=== PATIENT | female | born 1940 | race Caucasian/White ===

== ENCOUNTER → 2016-07-16 | Outpatient (CLI) | payer MEDICARE ==
--- NOTE | 2016-07-20 11:14 | MM ---
Reason for exam: screening (asymptomatic). Last mammogram was performed 1 year and 2 months ago. History: Patient is postmenopausal. Took hormonal contraceptives for 15 years beginning at age 22. Took estrogen for 10 years beginning at age 52. Took progesterone for 10 years beginning at age 52. Physical Findings: A clinical breast exam by your physician is recommended on an annual basis and results should be correlated with mammographic findings. MG 3D Screening Mammo W/Cad Bilateral CC and MLO view(s) were taken. Prior study comparison: May 15, 2015, bilateral MG screening mammo w CAD. May 03, 2014, bilateral MG screening mammo w CAD. May 02, 2013, bilateral digital screening mammo w/CAD. The breast tissue is almost entirely fat. Medial posterior mole on the right breast. No significant changes when compared with prior studies. ASSESSMENT: Negative, BI-RAD 1 RECOMMENDATION: Routine screening mammogram of both breasts in 1 year.
== END | disposition home or self-care (01) ==
LOC: RADMAMWWP 10:03
PROVIDERS: ATTEND Internal Medicine Geriatric Medicine
DX: Z12.31 Encounter for screening mammogram for malignant neoplasm of breast (principal)
CPT/HCPCS: 77063; G0202

== ENCOUNTER → 2017-06-10 | Outpatient (CLI) | payer MEDICARE ==
--- NOTE | 2017-06-11 09:22 | XR ---
EXAMINATION TYPE: XR chest 2V DATE OF EXAM: 06/10/2017 COMPARISON: NONE TECHNIQUE: PA and lateral views submitted. HISTORY: Dysphasia FINDINGS: The lungs are clear and there is no pneumothorax, pleural effusion, or focal pneumonia. Linear kaba ges at the left lung base are more typical of atelectasis than infiltrate. No overt failure. Hypertro phic and degenerative change of the spine. IMPRESSION: 1. Subsegmental linear changes left lung base. Atelectasis favored over infiltrate.
--- NOTE | 2017-06-11 09:30 | XR ---
EXAMINATION TYPE: XR soft tissue neck DATE OF EXAM: 06/10/2017 COMPARISON: NONE HISTORY: Dysphasia TECHNIQUE: 2 view submitted FINDINGS: Osseous structures intact. Lung apices clear. Degenerative change cervical spine. Prevertebral soft tissue structures within normal limits. Epiglottis has a normal appearance. Airway is patent. Facet arthropathy at multiple levels. IMPRESSION: No acute process.
== END | disposition home or self-care (01) ==
LOC: RADXRMAIN 15:56
PROVIDERS: ATTEND Nurse Practitioner Family
DX: R13.10 Dysphagia, unspecified (principal)
CPT/HCPCS: 70360; 71046

== ENCOUNTER → 2017-08-17 | Outpatient (CLI) | payer MEDICARE ==
--- NOTE | 2017-08-17 13:01 | BD ---
EXAMINATION TYPE: MG DEXA axial skeleton. DATE OF EXAM: 08/17/2017 CLINICAL HISTORY:M81.0 Height: 62.5 Weight: 173 FRAX RISK QUESTIONS: Alcohol (3 or more units per day): no Family History (Parent hip fracture): no Glucocorticoids (More than 3mos): yes (Ex: prednisone, prednisolone, methylprednisolone, dexamethasone, and hydrocortisone). History of Fracture in Adulthood: no Secondary Osteoporosis: 1. Type 1 Diabetes: NO 2. Hyperthyroidism: no 3. Menopause before 45: no 4. Malnutrition: no 5. Chronic liver disease: no Rheumatoid Arthritis: no Current Tobacco Use: no RISK FACTORS HISTORY OF: Family History of Osteoporosis: no Active: yes Diet low in dairy products/other sources of calcium: no Postmenopausal woman: yes Take estrogen and/or progesterone medications: not now How long: hormonal contraceptives about 15 years; estrogen/progesterone about 10 years Lost more than 2 inches in height since high school: no Frequent falls: no Poor Health: no Hyperparathyroidism: no Adrenal Insufficiency: no MEDICATIONS: Prednisone or other steroids: yes How Long: over 10 years Thyroid Medications: yes Which medication: Levothyroxine How Long: over 10 years Osteoporosis Medications: no Additional Medications: Symbicort, Omeprazole, Atorvastatin, Ezetimibe, Losartan Potassium, Aspirin, Loratadine or Cetirizine Hydrochlory, Montelukast, Metformin, Restasis, Multivitamin, Vitamin D, Fish oil, Vitamin C, Glucosamine & Chondroitin, Albuterol Sulfate Inhalation (nebulizer 4 times a day) Ve ntolin-Albuterol Sulfate every 4-6 hours only when needed Additional History: half of thyroid removed EXAM MEASUREMENTS: Bone mineral densitometry was performed using the [employer] System. Bone mineral density as measured about the Lumbar spine is: ----- L1-L4(G/cm2): 1.191 T Score Values are as follows: ----- L2: -0.1 ----- L3: -0.1 ----- L4: 0.0 ----- L1-L4: 0.1 Bone mineral density has: Decreased -3.2% since study of: 11/22/2009 Bone mineral density about the R hip (g/cm2): 0.879 Bone mineral density about the L hip (g/cm2): 0.862 T Score values are as follows: -----R Neck: -1.1 -----L Neck: -1.3 -----R Total: -0.5 -----L Total: -0.7 Bone mineral density has: Decreased -8.6% since study of: 11/22/2009 IMPRESSION: Osteopenia (T Score between -2.5 and -1). There is slightly increased risk of fracture and the patient may be considered for treatment. Re-Screen 2-5 years. NOTE: T-SCORE=SD OF THE YOUNG ADULT MEAN.
--- NOTE | 2017-08-18 08:34 | MM ---
Reason for exam: screening (asymptomatic). Last mammogram was performed 1 year and 1 month ago. History: Patient is postmenopausal. Took hormonal contraceptives for 15 years beginning at age 22. Took estrogen for 10 years beginning at age 52. Took progesterone for 10 years beginning at age 52. Physical Findings: A clinical breast exam by your physician is recommended on an annual basis and results should be correlated with mammographic findings. MG Screening Mammo w CAD Bilateral CC and MLO view(s) were taken. Prior study comparison: July 16, 2016, bilateral MG 3d screening mammo w/cad. May 15, 2015, bilateral MG screening mammo w CAD. There are scattered fibroglandular densities. Stable benign calcifications. There is no discrete abnormality. No significant changes when compared with prior studies. ASSESSMENT: Benign, BI-RAD 2 RECOMMENDATION: Routine screening mammogram of both breasts in 1 year.
== END | disposition home or self-care (01) ==
LOC: RADMAMWWP 08:02
PROVIDERS: ATTEND Internal Medicine Geriatric Medicine
DX: Z12.31 Encounter for screening mammogram for malignant neoplasm of breast (principal); M85.80 Other specified disorders of bone density and structure, unspecified site; M81.0 Age-related osteoporosis without current pathological fracture
CPT/HCPCS: 77067; 77080

== ENCOUNTER → 2018-08-31 | Outpatient (CLI) | payer MEDICARE ==
--- NOTE | 2018-09-02 10:07 | MM ---
Reason for exam: screening (asymptomatic). Last mammogram was performed 1 year ago. History: Patient is postmenopausal. Took hormonal contraceptives for 15 years beginning at age 22. Took estrogen for 10 years beginning at age 52. Took progesterone for 10 years beginning at age 52. Physical Findings: A clinical breast exam by your physician is recommended on an annual basis and results should be correlated with mammographic findings. MG Screening Mammo w CAD Bilateral CC and MLO view(s) were taken. Prior study comparison: August 17, 2017, bilateral MG screening mammo w CAD. July 16, 2016, bilateral MG 3d screening mammo w/cad. There are scattered fibroglandular densities. No significant changes when compared with prior studies. ASSESSMENT: Benign, BI-RAD 2 RECOMMENDATION: Routine screening mammogram of both breasts in 1 year.
== END | disposition home or self-care (01) ==
LOC: RADMAMWWP 12:01
PROVIDERS: ATTEND Internal Medicine Geriatric Medicine
DX: Z12.31 Encounter for screening mammogram for malignant neoplasm of breast (principal)
CPT/HCPCS: 77067

== ENCOUNTER → 2020-02-21 | Outpatient (CLI) | payer MEDICARE ==
--- NOTE | 2020-02-22 08:15 | BD ---
EXAMINATION TYPE: Axial Bone Density DATE OF EXAM: 02/21/2020 COMPARISON: NONE CLINICAL HISTORY: Height: 62 Weight: 158.6 FRAX RISK QUESTIONS: Alcohol (3 or more units per day): no Family History (Parent hip fracture): no Glucocorticoids (More than 3mos): no (Ex: prednisone, prednisolone, methylprednisolone, dexamethasone, and hydrocortisone). History of Fracture in Adulthood: no Secondary Osteoporosis: 1. Type 1 Diabetes: no 2. Hyperthyroidism: no 3. Menopause before 45: no 4. Malnutrition: no 5. Chronic liver disease: no Rheumatoid Arthritis: no Current Tobacco Use: no RISK FACTORS HISTORY OF: Family History of Osteoporosis: no Active: yes Diet low in dairy products/other sources of calcium: no Lost more than 2 inches in height since high school: no MEDICATIONS: Symbicort, Omeprazole, Atorvastatin, Ezetimibe, Losartan Potassium, Aspirin, Loratadine or Cetirizine Hydrochlory, Montelukast, Metformin, Restasis, Multivitamin, Vitamin D, Fish oil, Vitam in C, Glucosamine Chondroitin, Albuterol Sulfate Inhalation (nebulizer 4 times a day) Ventolin-Albute rol Sulfate every 4-6 hours only when needed Thyroid Medications: levothyroxine How Lon years Additional History: EXAM MEASUREMENTS: Bone mineral densitometry was performed using the [employer] System. Bone mineral density as measured about the Lumbar spine is: ----- L1-L4(G/cm2): 1.179 T Score Values are as follows: ----- L2: -0.8 ----- L3: -0.2 ----- L4: 0.6 ----- L1-L4: 0.0 Bone mineral density has: decreased -0.1 % since study of: 08.17.2017 Bone mineral density about the R hip (g/cm2): 0.827 Bone mineral density about the L hip (g/cm2): 0.817 T Score values are as follows: -----R Neck: -1.5 -----L Neck: -1.6 -----R Total: -0.9 -----L Total: -0.8 Bone mineral density has: decreased -2.9 % since study of: 08.17.2017 IMPRESSION: No evidence for osteoporosis are osteopenia. NOTE: T-SCORE=SD OF THE YOUNG ADULT MEAN.
--- NOTE | 2020-02-23 10:28 | MM ---
Reason for exam: screening (asymptomatic). Last mammogram was performed 1 year and 6 months ago. History: Patient is postmenopausal. Took hormonal contraceptives for 15 years beginning at age 22. Took estrogen for 10 years beginning at age 52. Took progesterone for 10 years beginning at age 52. Physical Findings: A clinical breast exam by your physician is recommended on an annual basis and results should be correlated with mammographic findings. MG 3D Screening Mammo W/Cad Bilateral CC and MLO view(s) were taken. Prior study comparison: August 31, 2018, bilateral MG screening mammo w CAD. August 17, 2017, bilateral MG screening mammo w CAD. There are scattered fibroglandular densities. Focal asymmetry No significant changes when compared with prior studies. ASSESSMENT: Benign, BI-RAD 2 RECOMMENDATION: Routine screening mammogram of both breasts in 1 year.
== END | disposition home or self-care (01) ==
LOC: RADMAMWWP 14:59
PROVIDERS: ATTEND Internal Medicine Geriatric Medicine
DX: Z12.31 Encounter for screening mammogram for malignant neoplasm of breast (principal); M81.0 Age-related osteoporosis without current pathological fracture
CPT/HCPCS: 77063; 77067; 77080

== ENCOUNTER → 2021-09-04 | Outpatient (CLI) | payer MEDICARE ==
--- NOTE | 2021-09-05 10:20 | MM ---
Reason for exam: screening (asymptomatic). Last mammogram was performed 1 year and 6 months ago. History: Patient is postmenopausal. Took hormonal contraceptives for 15 years beginning at age 22. Took estrogen for 10 years beginning at age 52. Took progesterone for 10 years beginning at age 52. Physical Findings: A clinical breast exam by your physician is recommended on an annual basis and results should be correlated with mammographic findings. MG 3D Screening Mammo W/Cad Bilateral CC and MLO view(s) were taken. Prior study comparison: February 21, 2020, bilateral MG 3d screening mammo w/cad. August 31, 2018, bilateral MG screening mammo w CAD. There are scattered fibroglandular densities. There are benign appearing round, linear calcifications in the left breast. There is no discrete abnormality. ASSESSMENT: Benign, BI-RAD 2 RECOMMENDATION: Routine screening mammogram of both breasts in 1 year.
== END | disposition home or self-care (01) ==
LOC: RADMAMWWP 15:42
PROVIDERS: ATTEND Internal Medicine Geriatric Medicine
DX: Z12.31 Encounter for screening mammogram for malignant neoplasm of breast (principal); Z78.0 Asymptomatic menopausal state
CPT/HCPCS: 77063; 77067

== ENCOUNTER → 2023-05-27 | Outpatient (CLI) | payer MEDICARE ==
--- NOTE | 2023-05-27 23:51 | BD ---
EXAMINATION TYPE: Axial Bone Density DATE OF EXAM: 05/27/2023 CLINICAL HISTORY: 82 years old Female. ICD-10 CODE: M81.0 AGE-RELATED OSTEOPOROSIS W/ Height: 61.5 Weight: 142.1 FRAX RISK QUESTIONS: Alcohol (3 or more units per day): no Family History (Parent hip fracture): no Glucocorticoids (More than 3mos): no History of Fracture in Adulthood: no Secondary Osteoporosis: 1. Type 1 Diabetes: no 2. Hyperthyroidism: no 3. Menopause before 45: no 4. Malnutrition: no 5. Chronic liver disease: no Rheumatoid Arthritis: no Current Tobacco Use: no RISK FACTORS HISTORY OF: Hip Fracture (Right/Left): no Spine Fracture: no History of Wrist Fracture: no Surgery to Spine/Hip(right/left)/Wrist (right/left): no Family History of Osteoporosis: no Active: no Diet low in dairy products/other sources of calcium: yes Postmenopausal woman: yes Take estrogen and/or progesterone medications: no Lost more than 2 inches in height since high school: no Frequent falls: no Poor Health: no Hyperparathyroidism: no Adrenal Insufficiency: no MEDICATIONS: Prednisone or other steroids: no Thyroid Medications: no Osteoporosis Medications: no Additional Medications: Cholesterol Meds, Vit D, Calcium Additional History: EXAM MEASUREMENTS: Bone mineral densitometry was performed using the [employer] System. Bone mineral density as measured about the Lumbar spine is: ----- L1-L4(G/cm2): 1.204 T Score Values are as follows: ----- L1: -0.5 ----- L2: 0.3 ----- L3: 0.2 ----- L4: 0.9 ----- L1-L4: 0.2 Z Score Values are as follows: ----- L1: 1.4 ----- L2: 1.5 ----- L3: 2.1 ----- L4: 2.7 ----- L1-L4: 2.1 Bone mineral density has: increased 2.1 % since study of: 02/21/2020 Bone mineral density about the R hip (g/cm2): 0.781 Bone mineral density about the L hip (g/cm2): 0.799 T Score values are as follows: -----R Neck: -1.8 -----L Neck: -1.6 -----R Total: -1.8 -----L Total: -1.7 Z Score values are as follows: -----R Neck: 0.4 -----L Neck: 0.6 -----R Total: 0.3 -----L Total: 0.4 Bone mineral density has: decreased -12.5 % since study of: 02/21/2020 FRAX%s: The graph provided illustrates a 15.1% chance for a major osteoporotic fx and a 4.3% chance f or the hips probability for fx in 10 years time. IMPRESSION: Osteopenia (T Score between -2.5 and -1). There is slightly increased risk of fracture and the patient may be considered for treatment. Re-Screen 2-5 years. NOTE: T-SCORE=SD OF THE YOUNG ADULT MEAN.
--- NOTE | 2023-05-28 19:14 | MM ---
Reason for Exam: Screening (asymptomatic). Last mammogram was performed 1 year(s) and 9 month(s) ago. Patient History: Menarche at age 15. First Full-Term at age 25. Postmenopausal. Estrogen for 10 years from age 52 until age 62. Progesterone for 10 years from age 52 until age 62. Hormonal Contraceptives for 15 years from age 22 until age 37. Risk Values: Serena 5 year model risk: 1.5%. NCI Lifetime model risk: 2.3%. Prior Study Comparison: 08/31/2018 Bilateral Screening Mammogram, [facility]. 02/21/2020 Bilateral Screening Mammogram, [facility]. 09/04/2021 Bilateral Screening Mammogram, [facility]. Tissue Density: There are scattered fibroglandular densities. Findings: Analyzed By CAD. Pattern appears symmetrical and stable. Multiple benign-appearing stable calcifications are scattered in the anterior left breast. Chronic nodularity is within the right breast. No significant interval changes are evident. No suspicious groups of microcalcifications, spiculated or lobular masses, architectural distortion or other secondary signs of malignancy are mammographically apparent. Overall Assessment: Benign, BI-RAD 2 Management: Screening Mammogram of both breasts in 1 year. A negative mammogram report should not preclude additional follow up of suspicious palpable abnormalities. Patient should continue monthly self breast exam. A clinical breast exam by your physician is recommended on an annual basis and results should be correlated with mammographic findings. Electronically signed and approved by: Romero Be D.O. [employer]iolog[facility]
== END | disposition home or self-care (01) ==
LOC: RADBDWWP 10:32
PROVIDERS: ATTEND Internal Medicine Geriatric Medicine
DX: Z12.31 Encounter for screening mammogram for malignant neoplasm of breast (principal); M81.0 Age-related osteoporosis without current pathological fracture; M85.89 Other specified disorders of bone density and structure, multiple sites; Z78.0 Asymptomatic menopausal state
CPT/HCPCS: 77063; 77067; 77080

== ENCOUNTER 2023-10-21 16:09 | Inpatient (IN) | payer MEDICARE ==
[2023-10-21 19:15] LABS: Partial Thromboplastin Time 22.7 sec (22.0-30.0); Prothrombin Time 10.8 sec (10.0-12.5)
[2023-10-21 19:23] LABS: Basophils % (A) 0 %; Eosinophils % (A) 0 %; HCT 34.6 % (34.0-46.0); HGB 11.4 gm/dL (11.4-16.0); Lymphocytes # (A) 1.1 k/uL (1.0-4.8); Lymphocytes % (A) 8 %; MCH 29.1 pg (25.0-35.0); MCHC 32.9 g/dL (31.0-37.0); MCV 88.2 fL (80.0-100.0); Mean Platelet Volume 7.3; Monocytes # (A) 0.9 k/uL (0-1.0); Monocytes % (A) 7 %; Neutrophils # (A) 11.5 k/uL (1.3-7.7); Neutrophils % (A) 83 %; Platelet Count 198 k/uL (150-450); RBC 3.92 m/uL (3.80-5.40); WBC 13.8 k/uL (3.8-10.6)
[2023-10-21 19:25] LABS: Appearance,Urine Cloudy (Clear); Bilirubin,Urine Negative (Negative); Blood,Urine Small (Negative); Color,Urine Yellow; Glucose,Urine (UA) Negative (Negative); Ketones,Urine 2+ (Negative); Leukocyte Esterase,Urine Large (Negative); Mucus,Urine Moderate /hpf; Nitrite,Urine Negative (Negative); PH, Urine 5.5 (5.0-8.0); Protein,Urine Trace (Negative); RBC,Urine 3 /hpf (0-5); Specific Gravity,Urine 1.022 (1.001-1.035); Squamous Epithelial Cell,Urine 4 /hpf (0-4); Urobilinogen,Urine <2.0 mg/dL (<2.0); WBC,Urine 18 /hpf (0-5)
[2023-10-21 19:30] LABS: ALT 16 U/L (4-34); AST 30 U/L (14-36); African American GFR (CKD) 66 (>60 ml/min/1.73 sqM); Albumin 3.7 g/dL (3.5-5.0); Alkaline Phosphatase 63 U/L (38-126); Anion Gap 5 mmol/L; Blood Urea Nitrogen 24 mg/dL (7-17); Calcium 8.9 mg/dL (8.4-10.2); Carbon Dioxide 23 mmol/L (22-30); Chloride 105 mmol/L (98-107); Glucose 79 mg/dL (74-99); Non-African American GFR(CKD) 57 (>60 ml/min/1.73 sqM); Potassium 3.8 mmol/L (3.5-5.1); Sodium 133 mmol/L (137-145); Total Bilirubin 0.7 mg/dL (0.2-1.3); Total Protein 6.2 g/dL (6.3-8.2)
[2023-10-21 19:32] LABS: Amphetamine Screen,Urine Not Detected (NotDetected); Barbiturate Screen,Urine Not Detected (NotDetected); Benzodiazepines Screen,Urine Not Detected (NotDetected); Cocaine Screen,Urine Not Detected (NotDetected); Methadone Screen, Urine Not Detected (NotDetected); Opiate Screen,Urine Not Detected (NotDetected); Oxycodone Screen, Urine Not Detected (NotDetected); Phencyclidine Screen,Urine Not Detected (NotDetected); Tricyclic Antidepressant,Urine Not Detected (NotDetected); Urn Cannabinoid Scrn Not Detected (NotDetected)
--- NOTE | 2023-10-21 20:04 | ED ---
General Adult HPI - General Chief complaint: Fall Stated complaint: NVD,AMS Time Seen by Provider: 10/21/23 16:15 Source: patient, family Mode of arrival: ambulatory Limitations: no limitations - History of Present Illness Initial comments: 83-year-old female with past medical history of dementia, diabetes who presents emergency department with altered mental status. Daughter is at bedside and provides the history. States that the patient has been confused since yesterday. She did have a doctor's appointment and appeared to be doing well at the visit. The daughter dropped her off at her house. Apparently the patient fell sometime last night as she has bruising to her right elbow. The patient is unsure if she passed out or fell as she does not remember the details of the past day. She does have a skin tear. She does have pain in the back of her head. She does not take any blood thinners. She is also reporting to right-sided rib pain. No shortness of breath. No changes in her bowel or bladder habits. No nausea or vomiting. She does admit that her mother has some memory issues however states this is significantly advanced. no other alleviating, precipitating or modifying factors - Related Data Home Medications Medication Instructions Recorded Confirmed Albuterol Nebulized [Ventolin 2.5 mg INHALATION RT-QID PRN 10/22/23 10/22/23 Nebulized] Albuterol Sulfate [Ventolin HFA] 1 - 2 puff INHALATION RT-Q6H PRN 10/22/23 10/22/23 Ascorbic Acid [Vitamin C] 500 mg PO DAILY 10/22/23 10/22/23 Aspirin 81 mg PO HS 10/22/23 10/22/23 Budesonide-Formot 160-4.5 Mcg 2 puff INHALATION RT-BID 10/22/23 10/22/23 [Symbicort 160-4.5 Mcg Inhaler] Cetirizine HCl [Zyrtec] 10 mg PO DAILY 10/22/23 10/22/23 Cholecalciferol [Vitamin D3 (25 50 mcg PO DAILY 10/22/23 10/22/23 Mcg = 1000 Iu)] Co Q-10 100mg 100 mg PO DAILY 10/22/23 10/22/23 Donepezil HCl [Aricept] 10 mg PO BID 10/22/23 10/22/23 Escitalopram [Lexapro] 5 mg PO DAILY 10/22/23 10/22/23 Ezetimibe [Zetia] 10 mg PO DAILY 10/22/23 10/22/23 Fish Oil/Dha/Epa [Fish Oil 1,200 1 cap PO DAILY 10/22/23 10/22/23 mg Fish Oil] Glucosamine-Msm 1 tab PO DAILY 10/22/23 10/22/23 Levothyroxine Sodium [Synthroid] 50 mcg PO DAILY 10/22/23 10/22/23 Losartan Potassium [Cozaar] 100 mg PO HS 10/22/23 10/22/23 Magnesium 250 mg PO BID 10/22/23 10/22/23 Montelukast [Singulair] 10 mg PO HS 10/22/23 10/22/23 Multivit-Min/FA/Lycopen/Lutein 1 tab PO DAILY 10/22/23 10/22/23 [Centrum Silver Tablet] Omeprazole [PriLOSEC] 20 mg PO W/SUPPER 10/22/23 10/22/23 Rosuvastatin [Crestor] 10 mg PO HS 10/22/23 10/22/23 cycloSPORINE 0.05% OPHTH SOLN 1 drop BOTH EYES BID 10/22/23 10/22/23 [Restasis] Previous Rx's Medication Instructions Recorded Vancomycin Oral Solution 250 mg PO Q6HR #64 dose 10/26/23 [Vancomycin HCl Oral Soln] metroNIDAZOLE [Flagyl] 500 mg PO TID #42 tab 10/26/23 Allergies Allergy/AdvReac Type Severity Reaction Status Date / Time Sulfa (Sulfonamide AdvReac Nausea & Verified 10/22/23 07:46 Antibiotics) Vomiting & Diarrhea Review of Systems ROS Statement: Those systems with pertinent positive or pertinent negative responses have been documented in the HPI. ROS Other: All systems not noted in ROS Statement are negative. Past Medical History Past Medical History: Dementia, Diabetes Mellitus, Hyperlipidemia History of Any Multi-Drug Resistant Organisms: None Reported Past Surgical History: No Surgical Hx Reported Past Psychological History: Anxiety Smoking Status: Never smoker Past Alcohol Use History: None Reported Past Drug Use History: None Reported General Exam Limitations: no limitations General appearance: alert, in no apparent distress Head exam: Present: atraumatic, normocephalic, normal inspection Eye exam: Present: normal appearance, PERRL, EOMI. Absent: scleral icterus, conjunctival injection, periorbital swelling ENT exam: Present: normal exam, mucous membranes moist Neck exam: Present: normal inspection. Absent: tenderness, meningismus, lymphadenopathy Respiratory exam: Present: normal lung sounds bilaterally, chest wall tenderness (Tenderness to palpation of the right anterior chest wall). Absent: re spiratory distress, wheezes, rales, rhonchi, stridor Cardiovascular Exam: Present: regular rate, normal rhythm, normal heart sounds. Absent: systolic murmur, diastolic murmur, rubs, gallop, clicks GI/Abdominal exam: Present: soft, normal bowel sounds. Absent: distended, tenderness, guarding, rebound, rigid Extremities exam: Present: full ROM, tenderness (right elbow with skin tear measuring 3.0 x 1.0 cm), normal capillary refill. Absent: pedal edema, joint swelling, calf tenderness Back exam: Present: normal inspection Neurological exam: Present: alert, oriented X3, CN II-XII intact Psychiatric exam: Present: normal affect, normal mood Skin exam: Present: warm, dry, intact, normal color. Absent: rash Course Vital Signs 10/21/23 10/21/23 10/21/23 16:12 18:58 19:00 Temperature 99.6 F 99.6 F Pulse Rate 87 68 70 Pulse Rate [ Material Handler Loader ] Respiratory 18 20 16 Rate Blood Pressure 150/73 138/60 140/61 Blood Pressure [Right Arm Supine] O2 Sat by Pulse 96 93 L 94 L Oximetry 10/21/23 10/21/23 10/22/23 20:00 21:00 01:00 Temperature Pulse Rate 65 68 75 Pulse Rate [ Material Handler Loader ] Respiratory 16 16 18 Rate Blood Pressure 118/61 120/61 153/51 Blood Pressure [Right Arm Supine] O2 Sat by Pulse 95 99 95 Oximetry 10/22/23 10/22/23 10/22/23 07:00 13:37 16:34 Temperature 98.3 F 98.1 F 98.1 F Pulse Rate 75 Pulse Rate [ 65 77 Material Handler Loader ] Respiratory 16 16 17 Rate Blood Pressure 125/55 Blood Pressure 129/68 121/56 [Right Arm Supine] O2 Sat by Pulse 93 L 94 L 95 Oximetry Medical Decision Making - Medical Decision Making Was pt. sent in by a medical professional or institution (, PA, DIRECTOR BIOINFORMATICS, urgent care, hospital, or senior care...) When possible be specific @ -No Did you speak to anyone other than the patient for history (EMS, parent, family, police, friend...)? What history was obtained from this source @ -I spoke with patient's daughter for history Did you review nursing and triage notes (agree or disagree)? Why? @ -I reviewed and agree with nursing and triage notes Were old charts reviewed (outside hosp., previous admission, EMS record, old EKG, old radiological studies, urgent care reports/EKG's, senior care records)? Report findings @ -No old charts were reviewed Differential Diagnosis (chest pain, altered mental status, abdominal pain women, abdominal pain men, vaginal bleeding, weakness, fever, dyspnea, syncope, he adache, dizziness, GI bleed, back pain, seizure, CVA, palpatations, mental health, musculoskeletal)? @ -Differential Syncope: Valvular disease, hypertrophic cardiomyopathy, pulmonary embolism, tamponade, tachycardia, bradycardia, MS, hypovolemia, hemorrhage, dissection, anemia, intracranial hemorrhage, seizure, hypoglycemia, carbon monoxide poisoning, this is not meant to be an all-inclusive list. EKG interpreted by me (3pts min.). @ -Yes and demonstrates sinus rhythm with a rate of 71. ND interval 131. QRS 98. QTc of 432. No acute ST segment elevations or depressions X-rays interpreted by me (1pt min.). @ -Yes and demonstrates no acute rib fractures CT interpreted by me (1pt min.). @ -Yes and demonstrates no acute intracranial injury U/S interpreted by me (1pt. min.). @ -None done What testing was considered but not performed or refused? (CT, X-rays, U/S, labs)? Why? @ -None What meds were considered but not given or refused? Why? @ -None Did you discuss the management of the patient with other professionals (professionals i.e. Dr., PA, DIRECTOR BIOINFORMATICS, lab, RT, psych nurse, social services analyst, layer out, teacher, navigation officer, outpatient case manager)? Give summary @ -I spoke with Rosa for admission Was smoking cessation discussed for >3mins.? @ -No Was critical care preformed (if so, how long)? @ -No Were there social determinants of health that impacted care today? How? (Homelessness, low income, unemployed, alcoholism, drug addiction, transportation, low edu. Level, literacy, decrease access to med. care, fpc, rehab)? @ -No Was there de-escalation of care discussed even if they declined (Discuss DNR or withdrawal of care, Hospice)? DNR status @ -No What co-morbidities impacted this encounter? (DM, HTN, Smoking, COPD, CAD, Cancer, CVA, ARF, Chemo, Hep., AIDS, mental health diagnosis, sleep apnea, morbid obesity)? @ -Dementia Was patient admitted / discharged? Hospital course, mention meds given and route, prescriptions, significant lab abnormalities, going to OR and other pertinent info. @ -Upon arrival patient seen and evaluated in hallway 26. Thorough history and physical exam was performed. Patient placed on continuous pulse ox and cardiac monitoring. Twelve-lead EKG is obtained. Laboratory studies are conducted. CT was performed of the patient's brain as she possibly hit her head. X-ray is performed of the patient's chest wall as she was reporting right-sided rib pain. Results were discussed with the patient. Did recommend admission as daughter is reporting confusion. Patient will be covered with antibiotics for her abnormal UA. Patient was agreeable to this plan and is awaiting a bed on the floor in stable condition Undiagnosed new problem with uncertain prognosis? @ -No Drug Therapy requiring intensive monitoring for toxicity (Heparin, Nitro, Insulin, Cardizem)? @ -No Were any procedures done? @ -No Diagnosis/symptom? @ -Acute encephalopathy, acute fall, right-sided chest wall pain, blunt head injury, acute UTI Acute, or Chronic, or Acute on Chronic? @ -Acute Uncomplicated (without systemic symptoms) or Complicated (systemic symptoms)? @ -Complicated Side effects of treatment? @ -No Exacerbation, Progression, or Severe Exacerbation? @ -No Poses a threat to life or bodily function? How? (Chest pain, USA, MS, pneumonia, PE, COPD, DKA, ARF, appy, cholecystitis, CVA, Diverticulitis, Homicidal, Suicidal, threat to staff... and all critical care pts) @ -No - Lab Data Result diagrams: 10/25/23 04:16 10/25/23 04:16 Lab Results 10/21/23 10/21/23 10/21/23 Range/Units 18:55 18:55 18:55 WBC 13.8 H (3.8-10.6) k/uL RBC 3.92 (3.80-5.40) m/uL Hgb 11.4 (11.4-16.0) gm/dL Hct 34.6 (34.0-46.0) % MCV 88.2 (80.0-100.0) fL MCH 29.1 (25.0-35.0) pg MCHC 32.9 (31.0-37.0) g/dL RDW 15.0 (11.5-15.5) % Plt Count 198 (150-450) k/uL MPV 7.3 Neutrophils % 83 % Lymphocytes % 8 % Monocytes % 7 % Eosinophils % 0 % Basophils % 0 % Neutrophils # 11.5 H (1.3-7.7) k/uL Lymphocytes # 1.1 (1.0-4.8) k/uL Monocytes # 0.9 (0-1.0) k/uL Eosinophils # 0.0 (0-0.7) k/uL Basophils # 0.0 (0-0.2) k/uL PT 10.8 (10.0-12.5) sec INR 1.0 (<1.2) APTT 22.7 (22.0-30.0) sec Sodium 133 L (137-145) mmol/L Potassium 3.8 (3.5-5.1) mmol/L Chloride 105 (98-107) mmol/L Carbon Dioxide 23 (22-30) mmol/L Anion Gap 5 mmol/L BUN 24 H (7-17) mg/dL Creatinine 0.94 (0.52-1.04) mg/dL Est GFR (CKD-EPI)AfAm 66 (>60 ml/min/1.73 sqM) Est GFR (CKD-EPI)NonAf 57 (>60 ml/min/1.73 sqM) Glucose 79 (74-99) mg/dL Calcium 8.9 (8.4-10.2) mg/dL Total Bilirubin 0.7 (0.2-1.3) mg/dL AST 30 (14-36) U/L ALT 16 (4-34) U/L Alkaline Phosphatase 63 (38-126) U/L Troponin I (0.000-0.034) ng/mL Total Protein 6.2 L (6.3-8.2) g/dL Albumin 3.7 (3.5-5.0) g/dL Urine Color Urine Appearance (Clear) Urine pH (5.0-8.0) Ur Specific Roscoe (1.001-1.035) Urine Protein (Negative) Urine Glucose (UA) (Negative) Urine Ketones (Negative) Urine Blood (Negative) Urine Nitrite (Negative) Urine Bilirubin (Negative) Urine Urobilinogen (<2.0) mg/dL Ur Leukocyte Esterase (Negative) Urine RBC (0-5) /hpf Urine WBC (0-5) /hpf Ur Squamous Epith Cells (0-4) /hpf Urine Mucus (None) /hpf Urine Opiates Screen (NotDetected) Ur Oxycodone Screen (NotDetected) Urine Methadone Screen (NotDetected) Ur Barbiturates Screen (NotDetected) U Tricyclic Antidepress (NotDetected) Ur Phencyclidine Scrn (NotDetected) Ur Amphetamines Screen (NotDetected) U Methamphetamines Scrn (NotDetected) U Benzodiazepines Scrn (NotDetected) Urine Cocaine Screen (NotDetected) U Marijuana (THC) Screen (NotDetected) Influenza Type A (PCR) (Not Detectd) Influenza Type B (PCR) (Not Detectd) RSV (PCR) (Not Detectd) SARS-CoV-2 (PCR) (Not Detectd) 10/21/23 10/21/23 10/21/23 Range/Units 18:55 18:55 19:08 WBC (3.8-10.6) k/uL RBC (3.80-5.40) m/uL Hgb (11.4-16.0) gm/dL Hct (34.0-46.0) % MCV (80.0-100.0) fL MCH (25.0-35.0) pg MCHC (31.0-37.0) g/dL RDW (11.5-15.5) % Plt Count (150-450) k/uL MPV Neutrophils % % Lymphocytes % % Monocytes % % Eosinophils % % Basophils % % Neutrophils # (1.3-7.7) k/uL Lymphocytes # (1.0-4.8) k/uL Monocytes # (0-1.0) k/uL Eosinophils # (0-0.7) k/uL Basophils # (0-0.2) k/uL PT (10.0-12.5) sec INR (<1.2) APTT (22.0-30.0) sec Sodium (137-145) mmol/L Potassium (3.5-5.1) mmol/L Chloride (98-107) mmol/L Carbon Dioxide (22-30) mmol/L Anion Gap mmol/L BUN (7-17) mg/dL Creatinine (0.52-1.04) mg/dL Est GFR (CKD-EPI)AfAm (>60 ml/min/1.73 sqM) Est GFR (CKD-EPI)NonAf (>60 ml/min/1.73 sqM) Glucose (74-99) mg/dL Calcium (8.4-10.2) mg/dL Total Bilirubin (0.2-1.3) mg/dL AST (14-36) U/L ALT (4-34) U/L Alkaline Phosphatase (38-126) U/L Troponin I <0.012 (0.000-0.034) ng/mL Total Protein (6.3-8.2) g/dL Albumin (3.5-5.0) g/dL Urine Color Urine Appearance (Clear) Urine pH (5.0-8.0) Ur Specific Roscoe (1.001-1.035) Urine Protein (Negative) Urine Glucose (UA) (Negative) Urine Ketones (Negative) Urine Blood (Negative) Urine Nitrite (Negative) Urine Bilirubin (Negative) Urine Urobilinogen (<2.0) mg/dL Ur Leukocyte Esterase (Negative) Urine RBC (0-5) /hpf Urine WBC (0-5) /hpf Ur Squamous Epith Cells (0-4) /hpf Urine Mucus (None) /hpf Urine Opiates Screen Not Detected (NotDetected) Ur Oxycodone Screen Not Detected (NotDetected) Urine Methadone Screen Not Detected (NotDetected) Ur Barbiturates Screen Not Detected (NotDetected) U Tricyclic Antidepress Not Detected (NotDetected) Ur Phencyclidine Scrn Not Detected (NotDetected) Ur Amphetamines Screen Not Detected (NotDetected) U Methamphetamines Scrn Not Detected (NotDetected) U Benzodiazepines Scrn Not Detected (NotDetected) Urine Cocaine Screen Not Detected (NotDetected) U Marijuana (THC) Screen Not Detected (NotDetected) Influenza Type A (PCR) Not Detected (Not Detectd) Influenza Type B (PCR) Not Detected (Not Detectd) RSV (PCR) Not Detected (Not Detectd) SARS-CoV-2 (PCR) Not Detected (Not Detectd) 10/21/23 10/22/23 10/22/23 Range/Units 19:08 07:24 07:24 WBC 11.2 H (3.8-10.6) k/uL RBC 3.51 L (3.80-5.40) m/uL Hgb 10.7 L (11.4-16.0) gm/dL Hct 31.5 L (34.0-46.0) % MCV 89.6 (80.0-100.0) fL MCH 30.4 (25.0-35.0) pg MCHC 33.9 (31.0-37.0) g/dL RDW 14.9 (11.5-15.5) % Plt Count 186 (150-450) k/uL MPV 7.5 Neutrophils % 77 % Lymphocytes % 13 % Monocytes % 7 % Eosinophils % 1 % Basophils % 0 % Neutrophils # 8.6 H (1.3-7.7) k/uL Lymphocytes # 1.4 (1.0-4.8) k/uL Monocytes # 0.8 (0-1.0) k/uL Eosinophils # 0.1 (0-0.7) k/uL Basophils # 0.0 (0-0.2) k/uL PT (10.0-12.5) sec INR (<1.2) APTT (22.0-30.0) sec Sodium 136 L (137-145) mmol/L Potassium 3.6 (3.5-5.1) mmol/L Chloride 108 H (98-107) mmol/L Carbon Dioxide 23 (22-30) mmol/L Anion Gap 5 mmol/L BUN 19 H (7-17) mg/dL Creatinine 0.91 (0.52-1.04) mg/dL Est GFR (CKD-EPI)AfAm 68 (>60 ml/min/1.73 sqM) Est GFR (CKD-EPI)NonAf 59 (>60 ml/min/1.73 sqM) Glucose 64 L (74-99) mg/dL Calcium 8.8 (8.4-10.2) mg/dL Total Bilirubin (0.2-1.3) mg/dL AST (14-36) U/L ALT (4-34) U/L Alkaline Phosphatase (38-126) U/L Troponin I (0.000-0.034) ng/mL Total Protein (6.3-8.2) g/dL Albumin (3.5-5.0) g/dL Urine Color Yellow Urine Appearance Cloudy H (Clear) Urine pH 5.5 (5.0-8.0) Ur Specific Roscoe 1.022 (1.001-1.035) Urine Protein Trace H (Negative) Urine Glucose (UA) Negative (Negative) Urine Ketones 2+ H (Negative) Urine Blood Small H (Negative) Urine Nitrite Negative (Negative) Urine Bilirubin Negative (Negative) Urine Urobilinogen <2.0 (<2.0) mg/dL Ur Leukocyte Esterase Large H (Negative) Urine RBC 3 (0-5) /hpf Urine WBC 18 H (0-5) /hpf Ur Squamous Epith Cells 4 (0-4) /hpf Urine Mucus Moderate H (None) /hpf Urine Opiates Screen (NotDetected) Ur Oxycodone Screen (NotDetected) Urine Methadone Screen (NotDetected) Ur Barbiturates Screen (NotDetected) U Tricyclic Antidepress (NotDetected) Ur Phencyclidine Scrn (NotDetected) Ur Amphetamines Screen (NotDetected) U Methamphetamines Scrn (NotDetected) U Benzodiazepines Scrn (NotDetected) Urine Cocaine Screen (NotDetected) U Marijuana (THC) Screen (NotDetected) Influenza Type A (PCR) (Not Detectd) Influenza Type B (PCR) (Not Detectd) RSV (PCR) (Not Detectd) SARS-CoV-2 (PCR) (Not Detectd) Disposition Clinical Impression: Fall, Acute encephalopathy, UTI (urinary tract infection), Skin tear of elbow without complication Disposition: ADMITTED IP TO THIS HOSP Condition: Stable Is patient prescribed a controlled substance at d/c from ED?: No Time of Disposition: 21:18 Decision to Admit Reason: Admit from EC Decision Date: 10/21/23 Decision Time: 21:18
--- NOTE | 2023-10-21 20:18 | CT ---
EXAMINATION TYPE: CT brain cspine wo con DATE OF EXAM: 10/21/2023 HISTORY: Fall CT DLP: 1369.8 mGycm. Automated Exposure Control for Dose Reduction was Utilized. TECHNIQUE: CT scan of the head and cervical spine are performed without contrast. COMPARISON: 12/13/2022 FINDINGS: There is no skull fracture or intracranial hemorrhage. No mass or mass effect. No definite new attenu ation defect. Extra-axial compartment is unremarkable. Orbits are intact. Paranasal sinuses, middle e ar cavities, and and mastoid sinus air are clear. There is no cervical spine fracture or malalignment. IMPRESSION: No acute process.
--- NOTE | 2023-10-21 20:21 | XR ---
PROCEDURE: XR ribs RT w pa chest xray - 3V DATE AND TIME: 10/21/2023 7:29 PM CLINICAL INDICATION: PHH; fall, right rib pain TECHNIQUE: Department protocol COMPARISON: 12/13/2022 FINDINGS / IMPRESSION: 3 views were obtained. No displaced right rib fracture, pneumothorax, or pleural effusion. No acute incidental findings.
[2023-10-21] MEDS ORDERED: NALOXONE 0.4 MG/ML 1 ML VIAL IV PRN (21:18)
[2023-10-21] MEDS ORDERED: ACETAMINOPHEN TAB 325 MG TAB PO PRN (21:18)
[2023-10-21] MEDS: SODIUM CHLORIDE 0.9% 1,000 ML IV SCH (23:20)
[2023-10-21] MEDS: cefTRIAXone IN SWFI 1,000 MG/10 ML SYRINGE IVP STA (23:21)
[2023-10-21] MEDS: BACITRACIN OINT 1 EACH PACKET TOPICAL ONE (23:21)
[2023-10-22 07:48] LABS: Basophils % (A) 0 %; Eosinophils # (A) 0.1 k/uL (0-0.7); Eosinophils % (A) 1 %; HCT 31.5 % (34.0-46.0); HGB 10.7 gm/dL (11.4-16.0); Lymphocytes # (A) 1.4 k/uL (1.0-4.8); Lymphocytes % (A) 13 %; MCH 30.4 pg (25.0-35.0); MCHC 33.9 g/dL (31.0-37.0); MCV 89.6 fL (80.0-100.0); Mean Platelet Volume 7.5; Monocytes # (A) 0.8 k/uL (0-1.0); Monocytes % (A) 7 %; Neutrophils # (A) 8.6 k/uL (1.3-7.7); Neutrophils % (A) 77 %; Platelet Count 186 k/uL (150-450); RBC 3.51 m/uL (3.80-5.40); RDW 14.9 % (11.5-15.5); WBC 11.2 k/uL (3.8-10.6)
[2023-10-22 08:05] LABS: African American GFR (CKD) 68 (>60 ml/min/1.73 sqM); Anion Gap 5 mmol/L; Blood Urea Nitrogen 19 mg/dL (7-17); Calcium 8.8 mg/dL (8.4-10.2); Carbon Dioxide 23 mmol/L (22-30); Chloride 108 mmol/L (98-107); Glucose 64 mg/dL (74-99); Non-African American GFR(CKD) 59 (>60 ml/min/1.73 sqM); Potassium 3.6 mmol/L (3.5-5.1); Sodium 136 mmol/L (137-145)
[2023-10-22] MEDS ORDERED: ALBUTEROL NEBULIZED 2.5 MG/3 ML INHALATION PRN (12:05)
[2023-10-22] MEDS ORDERED: ALBUTEROL HFA INHALER INHALATION PRN (12:05)
--- NOTE | 2023-10-22 12:32 | HP ---
HISTORY AND PHYSICAL CHIEF COMPLAINT: Fall, nausea and vomiting. HISTORY OF PRESENT ILLNESS: This is an 83-year-old woman with a past medical history of multiple medical problems including dementia, diabetes mellitus type 2, was not feeling well. The patient is mildly confused. Subsequently, the daughter dropped her off that house and the patient fell last night and bruised the right elbow and the patient is unable to recollect how long the patient has been out and the patient was taken to [facility], was admitted for further evaluation and treatment. The patient had features of UTI. There is no history of any fever, rigors, or chills. The patient is keen on going home. The patient also had elevated white count. PAST MEDICAL HISTORY: Reviewed include diabetes and dementia. Rest of the history and rest of the chart is also reviewed. HOME MEDICATIONS: Again reviewed include Prilosec. Dose and rest of medications reviewed. ALLERGIES: Sulfa. FAMILY HISTORY: No history of heart disease or strokes in the family. SOCIAL HISTORY: No history of smoking or alcohol. REVIEW OF SYSTEMS: Fourteen-point review is negative except as mentioned earlier. PHYSICAL EXAMINATION: VITAL SIGNS: Pulse is 75, blood pressure 153/81, respirations 18. HEENT: Conjunctivae normal. Oral mucosa dry. NECK: No jugular venous distention. CARDIOVASCULAR: S1, S2. RESPIRATIONS: Breath sounds diminished at the bases. ABDOMEN: Soft, nontender. LEGS: No edema. NERVOUS SYSTEM: Diffusely weak. SKIN: No ulcer, rash, bleeding. JOINTS: No active deforming arthropathy. LABORATORY DATA: WBC 13.8. ASSESSMENT: 1. Fall and possible dehydration, rule out orthostatic hypotension. 2. Acute urinary tract infection, rule out sepsis. 3. Hyponatremia, mild. 4. Diabetes mellitus, type 2. 5. Dementia. 6. Hyperlipidemia. RECOMMENDATIONS AND DISCUSSION: This is an 83-year-old woman, who presented with multiple complex medical issues, we will monitor the patient closely. Continue the current medications, continue symptomatic treatment. I recommend broad-spectrum IV antibiotics. Urine culture, blood culture, orthostatic vitals. PT, OT evaluation. Neurology, Cardiology consultations. Complete neurovascular workup. Prognosis guarded because of multiple complex medical issues. Further recommendations to follow. See orders for further details. MMODL / IJN: [id number] /
[2023-10-22] MEDS: cycloSPORINE 0.05% OPHTH 0.4 ML DROPERETTE BOTH EYES SCH (12:50)
[2023-10-22] MEDS: LEVOTHYROXINE 50 MCG TAB PO SCH (12:50)
[2023-10-22] MEDS: HEPARIN SODIUM,PORCINE 5,000 UNIT/ML 1 ML VIAL SQ SCH (12:50)
[2023-10-22] MEDS: PANTOPRAZOLE 40 MG/10 ML VIAL IVP SCH (12:50)
--- NOTE | 2023-10-22 13:18 | US ---
EXAMINATION TYPE: US carotid duplex BILAT DATE OF EXAM: 10/22/2023 COMPARISON: NONE CLINICAL INDICATION: Female, 83 years old with history of tia?; Fall with LOC; Patient denies any sig ns, symptoms, or relevant history TECHNIQUE: Carotid duplex ultrasound examination. Indirect Doppler criteria was utilized. FINDINGS: EXAM MEASUREMENTS: RIGHT: Peak Systolic Velocity (PSV) cm/sec ----- Right CCA: 73 ----- Right ICA: 93 ----- Right ECA: 107 ICA/CCA ratio: 1.3 RIGHT: End Diastole cm/sec ----- Right CCA: 15 ----- Right ICA: 23 ----- Right ECA: 10 LEFT: Peak Systolic Velocity (PSV) cm/sec ----- Left CCA: 98 ----- Left ICA: 116 ----- Left ECA: 95 ICA/CCA ratio: 1.2 LEFT: End Diastole cm/sec ----- Left CCA: 15 ----- Left ICA: 27 ----- Left ECA: 12 VERTEBRALS (direction of flow): Right Vertebral: Antegrade Left Vertebral: Antegrade Rhythm: Normal HEALTH CARE AIDE NOTES: No calcifications, plaque, intimal thickening, or elevated velocities seen. IMPRESSION: No significant hemodynamic stenosis. Criteria for Assigning % of Stenosis / Diameter reduction (Estimation based on the indirect measurements of the internal carotid artery velocities (ICA PSV). 1. Normal (no stenosis)=ICA PSV < 125 cm/s: ratio < 2.0: ICA EDV<40 cm/s. 2. Less than 50% stenosis=ICA PSV < 125 cm/s: ratio < 2.0: ICA EDV<40 cm/s. 3. 50 to 69% stenosis=ICA PSV of 125 to 230 cm/s: ration 2.0 ? 4.0: ICA EDV 40-100 cm/s. 4. Greater than 70% stenosis to near occlusion= ICA PSV > 230 cm/s: ratio > 4.0: ICA EDV > 100 cm/s. 5. Near occlusion= ICA PSV velocities may be low or undetectable: variable ratio and ICA EDV. 6. Total occlusion=unable to detect flow.
[2023-10-22 17:23] LABS: Glucose,Whole Blood 121 mg/dL (70-110)
[2023-10-22] MEDS ORDERED: PANTOPRAZOLE 40 MG TABLET PO SCH (17:30)
[2023-10-22] MEDS: SYMBICORT 160-4.5 MCG INHALER INHALATION SCH (19:43)
[2023-10-22] MEDS: LOSARTAN 50 MG TAB PO SCH (20:18)
[2023-10-22] MEDS: ATORVASTATIN 20 MG TAB PO SCH (20:19)
[2023-10-22] MEDS: DONEPEZIL 10 MG TAB PO SCH (20:19)
[2023-10-22] MEDS: ASPIRIN 81 MG PO SCH (20:19)
[2023-10-22] MEDS: MONTELUKAST 10 MG TAB PO SCH (20:19)
[2023-10-23] MEDS ORDERED: NON FORMULARY DRUG (Co Q-10 100mg 100 MG) PO SCH (09:00)
[2023-10-23] MEDS: ASCORBIC ACID 500 MG TAB PO SCH (09:09)
[2023-10-23] MEDS: CHOLECALCIFEROL 25 MCG (1000 IU) TABLET PO SCH (09:09)
[2023-10-23] MEDS: EZETIMIBE 10 MG TAB PO SCH (09:10)
[2023-10-23] MEDS: ESCITALOPRAM 5 MG TAB PO SCH (09:10)
[2023-10-23] MEDS: MAGNESIUM OXIDE 400 MG TAB PO SCH (09:11)
[2023-10-23] MEDS: MULTIVITAMINS, THERA 1 EACH TAB PO SCH (09:11)
[2023-10-23 09:39] LABS: Blood Urea Nitrogen 21.5 mg/dL (9.0-27.0); Calcium 8.7 mg/dL (8.7-10.3); Carbon Dioxide 23.2 mmol/L (21.6-31.8); Chloride 108 mmol/L (96-109); Glucose 105 mg/dL (70-110); Potassium 3.6 mmol/L (3.5-5.5); Sodium 140 mmol/L (135-145)
[2023-10-23 09:46] LABS: Basophils # (A) 0.02 X 10*3/uL (0.00-0.10); Basophils % (A) 0.2 %; Eosinophils # (A) 0.24 X 10*3/uL (0.04-0.35); Eosinophils % (A) 2.1 %; HCT 32.7 % (37.2-46.3); HGB 10.3 g/dL (12.0-15.0); Lymphocytes # (A) 1.97 X 10*3/uL (0.90-5.00); Lymphocytes % (A) 17.5 %; MCH 28.6 pg (27.0-32.0); MCHC 31.5 g/dL (32.0-37.0); MCV 90.8 FL (80.0-97.0); Mean Platelet Volume 9.4 FL (9.5-12.2); Monocytes # (A) 1.41 X 10*3/uL (0.20-1.00); Monocytes % (A) 12.6 %; NRBC Per 100 WBC 0 X 10*3/uL (0.00-0.01); Neutrophils # (A) 7.55 X 10*3/uL (1.80-7.70); Neutrophils % (A) 67.2 %; Platelet Count 202 X 10*3/uL (140-440); RDW 14.9 % (11.5-14.5); WBC 11.23 X 10*3/uL (4.50-10.00)
--- NOTE | 2023-10-23 12:47 | P.CRDCN ---
History of Present Illness Consult date: 10/23/23 Consult reason: sycope History of present illness: This is Tan Schofield NP, I'm dictating on behalf of Dr. Santiago's H&P and A&P The patient was interviewed and examined. HPI: Patient is a pleasant 83-year-old female with a past medical history that includes dementia, diabetes, and hyperlipidemia who presents to the hospital with a fall at home with acute encephalopathy. Patient and daughter are in the room during my interview. The daughter reports that the patient fell at home, and states this was an unsupervised fall so they are unsure if this was due to the patient tripping and falling, being weak, or actually having a syncopal e pisode. Family reports the patient has had multiple falls over the last couple of months. Patient reports that she was not feeling well the night prior, and had fallen at that time, however this was witnessed and somewhat assisted. Patient has injury to her elbow on the right secondary to the unsupervised fall. Daughter reports the patient had been confused as well yesterday. Patient reports that she does not remember falling yesterday evening at all and is unable to provide any details into the mechanism of the fall. This morning the patient reports that she is feeling somewhat better. She is denying chest pain, shortness of breath, heart palpitations, dizziness, and syncope at this time. ROS: [No fever, chills, or rigors] [no cough, phlegm, or expectoration] [no nausea, vomiting, or diarrhea] [no hematuria, dysuria] [no musculoskelatal complaints] [no strokes or seizures] [no skin lesions] EXAMINATION: GENERAL: Well-appearing, well-nourished and in no acute distress. NECK: Supple without JVD or thyromegaly. LUNGS: Breath sounds clear to auscultation bilaterally. Respiration equal and unlabored. No wheezes, rales or rhonchi. HEART: Regular rate and rhythm without murmurs, rubs or gallops. S1 and S2 heard. EXTREMITIES: Normal range of motion, no edema. No clubbing or cyanosis. Peripheral pulses intact and strong. REVIEW OF LABS, ECG & MEDICAL DATA: LABS: White count 11.2, hemoglobin 10.3, platelets 202, sodium 140, potassium 3.6, BUN 21.5, creatinine 1.0, TSH 2.63 EKG: Normal sinus rhythm IMAGING: CT of the brain and cervical spine without contrast dated 10/21/2023 demonstrates no acute process. X-ray of the chest and ribs dated 10/21/2023 demonstrates no displaced right rib fracture, pneumothorax, or pleural effusion, no acute incidental findings. Carotid Doppler bilaterally dated 10/22/2023 demonstrates no significant hemodynamic stenosis. VITALS: Temp 98.6, pulse 62, respirations 16, blood pressure 132/74, O2 saturation 93% on room air IMPRESSION: 1. Possible syncopal episode 2. Urinary tract infection 3. Fall of unknown etiology PLAN: Echocardiogram. Check TSH. Continue telemetry monitoring. Further recommendations based on patient's clinical course. Thank you for the consult and allowing us to participate in the care of this patient. Past Medical History Past Medical History: Dementia, Hyperlipidemia History of Any Multi-Drug Resistant Organisms: None Reported Past Surgical History: No Surgical Hx Reported Past Psychological History: Anxiety Smoking Status: Never smoker Past Alcohol Use History: None Reported Past Drug Use History: None Reported Medications and Allergies Home Medications Medication Instructions Recorded Confirmed Type Albuterol Nebulized [Ventolin 2.5 mg INHALATION RT-QID PRN 10/22/23 10/22/23 History Nebulized] Albuterol Sulfate [Ventolin HFA] 1 - 2 puff INHALATION RT-Q6H PRN 10/22/23 10/22/23 History Ascorbic Acid [Vitamin C] 500 mg PO DAILY 10/22/23 10/22/23 History Aspirin 81 mg PO HS 10/22/23 10/22/23 History Budesonide-Formot 160-4.5 Mcg 2 puff INHALATION RT-BID 10/22/23 10/22/23 History [Symbicort 160-4.5 Mcg Inhaler] Cetirizine HCl [Zyrtec] 10 mg PO DAILY 10/22/23 10/22/23 History Cholecalciferol [Vitamin D3 (25 50 mcg PO DAILY 10/22/23 10/22/23 History Mcg = 1000 Iu)] Co Q-10 100mg 100 mg PO DAILY 10/22/23 10/22/23 History Donepezil HCl [Aricept] 10 mg PO BID 10/22/23 10/22/23 History Escitalopram [Lexapro] 5 mg PO DAILY 10/22/23 10/22/23 History Ezetimibe [Zetia] 10 mg PO DAILY 10/22/23 10/22/23 History Fish Oil/Dha/Epa [Fish Oil 1,200 1 cap PO DAILY 10/22/23 10/22/23 History mg Fish Oil] Glucosamine-Msm 1 tab PO DAILY 10/22/23 10/22/23 History Levothyroxine Sodium [Synthroid] 50 mcg PO DAILY 10/22/23 10/22/23 History Losartan Potassium [Cozaar] 100 mg PO HS 10/22/23 10/22/23 History Magnesium 250 mg PO BID 10/22/23 10/22/23 History Montelukast [Singulair] 10 mg PO HS 10/22/23 10/22/23 History Multivit-Min/FA/Lycopen/Lutein 1 tab PO DAILY 10/22/23 10/22/23 History [Centrum Silver Tablet] Omeprazole [PriLOSEC] 20 mg PO W/SUPPER 10/22/23 10/22/23 History Rosuvastatin [Crestor] 10 mg PO HS 10/22/23 10/22/23 History cycloSPORINE 0.05% OPHTH SOLN 1 drop BOTH EYES BID 10/22/23 10/22/23 History [Restasis] Allergies Allergy/AdvReac Type Severity Reaction Status Date / Time Sulfa (Sulfonamide AdvReac Nausea & Verified 10/22/23 07:46 Antibiotics) Vomiting & Diarrhea Physical Exam Vitals: Vital Signs Temp Pulse Pulse Pulse Pulse Pulse Resp 10/23/23 07:00 98.6 F 62 16 10/23/23 02:45 71 80 91 65 16 10/23/23 01:27 99.9 F H 69 18 10/22/23 20:54 71 80 91 65 16 10/22/23 20:22 99.3 F 10/22/23 19:10 101.0 F H 71 16 10/22/23 17:20 98.2 F 80 91 65 10/22/23 16:34 98.1 F 75 17 10/22/23 13:37 98.1 F 77 16 BP BP BP BP BP BP Pulse Ox 10/23/23 07:00 132/74 93 L 10/23/23 02:45 10/23/23 01:27 137/66 94 L 10/22/23 20:54 10/22/23 20:22 10/22/23 19:10 149/66 99 10/22/23 17:20 147/67 128/67 143/66 96 10/22/23 16:34 125/55 95 10/22/23 13:37 121/56 94 L Intake and Output 10/22/23 10/23/23 10/23/23 22:59 06:59 14:59 Intake Total 118 Balance 118 Intake: Oral 118 Other: # Voids 2 2 Weight 64.41 kg Results 10/23/23 04:54 10/23/23 04:54 Comprehensive Metabolic Panel 10/22/23 Range/Units 07:24 Sodium 136 L (137-145) mmol/L Potassium 3.6 (3.5-5.1) mmol/L Chloride 108 H (98-107) mmol/L Carbon Dioxide 23 (22-30) mmol/L BUN 19 H (7-17) mg/dL Creatinine 0.91 (0.52-1.04) mg/dL Glucose 64 L (74-99) mg/dL Calcium 8.8 (8.4-10.2) mg/dL Current Medications Generic Name Dose Route Start Last Admin Trade Name Freq PRN Reason Stop Dose Admin Acetaminophen 650 mg 10/21/23 21:18 Acetaminophen Tab 325 Mg Tab PO Q6HR PRN Mild Pain or Fever > 100.5 Albuterol Sulfate 2 puff 10/22/23 12:05 Albuterol Hfa Inhaler INHALATION RT-Q6H PRN Shortness Of Breath Albuterol Sulfate 2.5 mg 10/22/23 12:05 Albuterol Nebulized 2.5 Mg/3 Ml INHALATION RT-QID PRN Shortness Of Breath Ascorbic Acid 500 mg 10/23/23 09:00 Ascorbic Acid 500 Mg Tab PO DAILY GEOVANNI Aspirin 81 mg 10/22/23 21:00 10/22/23 20:19 Aspirin 81 Mg PO 81 mg HS GEOVANNI Administration Atorvastatin Calcium 20 mg 10/22/23 21:00 10/22/23 20:19 Atorvastatin 20 Mg Tab PO 20 mg HS GEOVANNI Administration Budesonide/Formoterol Fumarate 2 puff 10/22/23 20:00 10/22/23 19:43 Symbicort 160-4.5 Mcg Inhaler INHALATION 2 puff RT-BID GEOVANNI Administration Cholecalciferol 50 mcg 10/23/23 09:00 Cholecalciferol 25 Mcg (1000 Iu) Tablet PO DAILY GEOVANNI Cyclosporine 1 drops 10/22/23 12:15 10/22/23 20:19 Cyclosporine 0.05% Ophth 0.4 Ml Droperette BOTH EYES 1 drops BID GEOVANNI Administration Donepezil HCl 10 mg 10/22/23 21:00 10/22/23 20:19 Donepezil 10 Mg Tab PO 10 mg BID GEOVANNI Administration Ezetimibe 10 mg 10/23/23 09:00 Ezetimibe 10 Mg Tab PO DAILY GEOVANNI Escitalopram Oxalate 5 mg 10/23/23 09:00 Escitalopram 5 Mg Tab PO DAILY [facility] Heparin Sodium (Porcine) 5,000 unit 10/22/23 12:15 10/22/23 20:19 Heparin Sodium,Porcine 5,000 Unit/Ml 1 Ml Vial SQ 5,000 unit Q12HR GEOVANNI Administration Sodium Chloride 1,000 mls @ 75 mls/hr 10/21/23 21:30 10/23/23 02:49 Saline 0.9% IV Not Given .[id number] [facility] Ceftriaxone Sodium 2 gm/ 50 mls @ 100 mls/hr 10/23/23 09:00 Sodium Chloride IVPB Q24HR [facility] Protocol Levothyroxine Sodium 50 mcg 10/22/23 12:15 10/23/23 05:52 Levothyroxine 50 Mcg Tab PO 50 mcg DAILY@0630 GEOVANNI Administration Losartan Potassium 100 mg 10/22/23 21:00 10/22/23 20:18 Losartan 50 Mg Tab PO 100 mg HS GEOVANNI Administration Magnesium Oxide 400 mg 10/23/23 09:00 Magnesium Oxide 400 Mg Tab PO DAILY [facility] Montelukast Sodium 10 mg 10/22/23 21:00 10/22/23 20:19 Montelukast 10 Mg Tab PO 10 mg HS GEOVANNI Administration Multivitamins 1 each 10/23/23 09:00 Multivitamins, Thera 1 Each Tab PO DAILY [facility] Naloxone HCl 0.2 mg 10/21/23 21:18 Naloxone 0.4 Mg/Ml 1 Ml Vial IV Q2M PRN Opioid Reversal Pantoprazole Sodium 40 mg 10/22/23 12:15 10/22/23 20:54 Pantoprazole 40 Mg/10 Ml Vial IVP 40 mg BID GEOVANNI Administration Intake and Output 10/22/23 10/23/23 10/23/23 22:59 06:59 14:59 Intake Total 118 Balance 118 Intake: Oral 118 Other: # Voids 2 2 Weight 64.41 kg 10/22/23 07:24 10/22/23 07:24
--- NOTE | 2023-10-23 13:05 | CA ---
Transthoracic Echo Report Name: Funmilayo Ashraf Age: 83 Gender: F : 1940 Exam Date: 10/22/2023 13:26 Exam Location: [place] [facility] Ht (in): 62 Wt (lb): 142 Ordering Physician: Jannet Andrews MD Attending/Referring Phys: Relationship Advisor Evie Niño RDCS Procedure CPT: Indications: Syncope Cardiac Hx: Technical Quality: Fair Contrast 1: Total Dose (mL): Contrast 2: Total Dose (mL): MEASUREMENTS (Male / Female) Normal Values 2D ECHO LV Diastolic Diameter PLAX 3.8 cm 4.2 - 5.9 / 3.9 - 5.3 cm LV Systolic Diameter PLAX 2.2 cm IVS Diastolic Thickness 1.3 cm 0.6 - 1.0 / 0.6 - 0.9 cm LVPW Diastolic Thickness 1.3 cm 0.6 - 1.0 / 0.6 - 0.9 cm LV Relative Wall Thickness 0.7 RV Internal Dim ED PLAX 2.3 cm LA Systolic Diameter LX 3.4 cm 3.0 - 4.0 / 2.7 - 3.8 cm LV Diastolic Volume MOD BP 68.8 cm??? 67 - 155 / 56 - 104 cm??? LV Systolic Volume MOD BP 22.8 cm??? 22 - 58 / 19 - 49 cm??? LV Ejection Fraction MOD BP 66.9 % >= 55 % LV Cardiac Index MOD BP 2011.3 cm???/min???m??? LV Diastolic Volume MOD 4C 87.8 cm??? LV Systolic Volume MOD 4C 26.0 cm??? LV Ejection Fraction MOD 4C 70.4 % LV Cardiac Index MOD 4C 2701.1 cm???/min???m??? LV Diastolic Length 4C 7.0 cm LV Systolic Length 4C 5.4 cm LV Diastolic Volume MOD 2C 54.2 cm??? LV Systolic Volume MOD 2C 19.8 cm??? LV Ejection Fraction MOD 2C 63.4 % LV Cardiac Index MOD 2C 1500.8 cm???/min???m??? LV Diastolic Length 2C 6.9 cm LV Systolic Length 2C 5.5 cm LA Volume 67.5 cm??? 18 - 58 / 22 - 52 cm??? LA Volume Index 39.9 cm???/m??? 16 - 28 cm???/m??? M-MODE Aortic Root Diameter MM 2.4 cm LA Systolic Diameter MM 3.5 cm LA Ao Ratio MM 1.5 AV Cusp Separation MM 1.6 cm DOPPLER AV Peak Velocity 173.2 cm/s AV Peak Gradient 12.0 mmHg MV Area PHT 2.5 cm??? Mitral E Point Velocity 97.7 cm/s Mitral A Point Velocity 122.5 cm/s Mitral E to A Ratio 0.8 MV Deceleration Time 300.9 ms TR Peak Velocity 244.3 cm/s TR Peak Gradient 23.9 mmHg Right Ventricular Systolic Press 27.6 mmHg FINDINGS Left Ventricle Left ventricular ejection fraction is estimated at 55-60%. Mildly increased septal wall thickness. Mildly increased posterior wall thickness. Left ventricular cavity size normal. Normal left ventricular diastolic filling pattern. Right Ventricle Normal right ventricular size and function. Right ventricular systolic pressure within normal limits. Right Atrium Normal right atrial size. Left Atrium Moderately increased left atrial volume. Mitral Valve Structurally normal mitral valve. Trace to mild mitral regurgitation. No mitral stenosis. Aortic Valve Trileaflet aortic valve. No aortic valve stenosis or regurgitation. Thickened aortic valve without stenosis. Tricuspid Valve Structurally normal tricuspid valve. Trace to mild tricuspid regurgitation. Pulmonic Valve Structurally normal pulmonic valve. No pulmonic regurgitation. Pericardium No pericardial or pleural effusion. Aorta Normal size aortic root and proximal ascending aorta. CONCLUSIONS LVH with preserved systolic function Previewed by: Dr. Spenser Santiago MD (Electronically Signed) Final Date: 23 October 2023 13:05
--- NOTE | 2023-10-23 23:19 | PN ---
PROGRESS NOTE DATE OF SERVICE: 10/23/2023 SUBJECTIVE: This is an 83-year-old woman, who was admitted with fall and possible dehydration and also had orthostatic hypotension, also had some features of dehydration. The patient also has some UTI. No chest pain. No palpitations. No fever. After hydration, the blood pressure is improving. OBJECTIVE: VITAL SIGNS: Pulse is 70, blood pressure 130/70, respirations 17. HEENT: Conjunctivae normal. NECK: No JVD. CARDIOVASCULAR: S1, S2. RESPIRATIONS: Breath sounds diminished at the bases. A few scattered rhonchi. ABDOMEN: Soft. NERVOUS SYSTEM: Nonfocal. LABORATORY DATA: WBC 11.4. Rest of the labs are noted. ASSESSMENT: 1. Fall and possible dehydration. 2. Acute urinary tract infection, present on admission. 3. Hyponatremia, mild. 4. Diabetes mellitus, type 2. 5. Dementia. 6. Hyperlipidemia. RECOMMENDATIONS: Recommend to continue current management and continue symptomatic treatment. Sepsis is ruled out. Continue with antibiotics. PT, OT evaluation. Orthostatic vitals. Further recommendations to follow. MMODL / IJN: [id number] /
--- NOTE | 2023-10-24 09:02 | P.CNNES ---
History of Present Illness Consult date: 10/23/23 Requesting physician: Jannet Andrews Reason for Consult: Syncope History of Present Illness: Patient is a 83-year-old female with history of mild dementia, came to the hospital 2 days ago, 10/21/2023 at 4:09 PM for syncopal spell. Patient's and daughter were also present, who provided with a history. Patient's and daughter mentions that patient went to bed early at around 8:30 or 9 PM. She mentioned that she was feeling slightly nauseated and dizzy, and also felt will throw up and felt that laying will make her feel better. Patient's daughter checked her blood sugar was 99 and patient also had a fever of 101. She went home at around 11:30 PM. Her went to sleep at around 1 AM. At 6 AM patient's heard patient in the bathroom. He went in there and saw that patient had some blood, bruise and scrape on the right elbow and bruise on the right forehead region. Patient had no idea how it happened, but apparently sometimes between 2 AM to 6 AM, patient suffered from a fall and patient does not remember. No one saw that fall. Patient's daughter noticed that there was some loose stools on the bedroom floor and bathroom floor which they cleaned. Patient did not have any abdominal pain. She had a lot of confusion at that time. Therefore they brought her to the hospital. Vital signs on arrival blood pressure 150/73, pulse 87 temperature 99.6. Patient's temperature went up to 101.0 yesterday at 7:10 PM. Orthostatics were checked and were positive with supine blood pressure 143/66, sitting 147/67 and standing 128/67. Blood test shows elevated WBC 13.8, hemoglobin 11.4 platelets are normal. PT PTT normal, sodium 133 potassium normal. Renal, hepatic panel, troponin negative. UA shows large amount of leukocyte esterase and 18 WBC. Urine drug screen negative. Influenza, RSV and coronavirus PCR negative. CT head revealed no acute process. I personally reviewed CT head, agree with the findings. CT of the cervical spine showed no malalignment. X-ray of the ribs negative. EKG shows sinus rhythm. Patient has history of mild to moderate dementia, as per patient's daughter. She usually repeats herself," lives by calendar". Patient had a bad infection about 3 weeks ago. She had a cold sore on her lip, and her physician punctured the cold sore to get the cultures and the infection spread. She was hospital ized and treated. Patient's daughter also mentions that patient fell about 3 months ago, and it was felt to be related to dehydration. She had hit her head on the kitchen table Review of Systems Completely unremarkable, except as mentioned in detail the pertinent positives and negatives. No chest pain. Patient does complain of some headache over where she had a bruise on the right forehead region. Her ribs hurt on the right side, probably where she fell. Past Medical History Past Medical History: Dementia, Hyperlipidemia History of Any Multi-Drug Resistant Organisms: None Reported Past Surgical History: No Surgical Hx Reported Past Psychological History: Anxiety Smoking Status: Never smoker Past Alcohol Use History: None Reported Past Drug Use History: None Reported Medications and Allergies Home Medications Medication Instructions Recorded Confirmed Type Albuterol Nebulized [Ventolin 2.5 mg INHALATION RT-QID PRN 10/22/23 10/22/23 History Nebulized] Albuterol Sulfate [Ventolin HFA] 1 - 2 puff INHALATION RT-Q6H PRN 10/22/23 10/22/23 History Ascorbic Acid [Vitamin C] 500 mg PO DAILY 10/22/23 10/22/23 History Aspirin 81 mg PO HS 10/22/23 10/22/23 History Budesonide-Formot 160-4.5 Mcg 2 puff INHALATION RT-BID 10/22/23 10/22/23 History [Symbicort 160-4.5 Mcg Inhaler] Cetirizine HCl [Zyrtec] 10 mg PO DAILY 10/22/23 10/22/23 History Cholecalciferol [Vitamin D3 (25 50 mcg PO DAILY 10/22/23 10/22/23 History Mcg = 1000 Iu)] Co Q-10 100mg 100 mg PO DAILY 10/22/23 10/22/23 History Donepezil HCl [Aricept] 10 mg PO BID 10/22/23 10/22/23 History Escitalopram [Lexapro] 5 mg PO DAILY 10/22/23 10/22/23 History Ezetimibe [Zetia] 10 mg PO DAILY 10/22/23 10/22/23 History Fish Oil/Dha/Epa [Fish Oil 1,200 1 cap PO DAILY 10/22/23 10/22/23 History mg Fish Oil] Glucosamine-Msm 1 tab PO DAILY 10/22/23 10/22/23 History Levothyroxine Sodium [Synthroid] 50 mcg PO DAILY 10/22/23 10/22/23 History Losartan Potassium [Cozaar] 100 mg PO HS 10/22/23 10/22/23 History Magnesium 250 mg PO BID 10/22/23 10/22/23 History Montelukast [Singulair] 10 mg PO HS 10/22/23 10/22/23 History Multivit-Min/FA/Lycopen/Lutein 1 tab PO DAILY 10/22/23 10/22/23 History [Centrum Silver Tablet] Omeprazole [PriLOSEC] 20 mg PO W/SUPPER 10/22/23 10/22/23 History Rosuvastatin [Crestor] 10 mg PO HS 10/22/23 10/22/23 History cycloSPORINE 0.05% OPHTH SOLN 1 drop BOTH EYES BID 10/22/23 10/22/23 History [Restasis] Allergies Allergy/AdvReac Type Severity Reaction Status Date / Time Sulfa (Sulfonamide AdvReac Nausea & Verified 10/22/23 07:46 Antibiotics) Vomiting & Diarrhea Physical Examination - Vital Signs Vital Signs: Vital Signs Temp Pulse Pulse Pulse Pulse Pulse Resp 10/23/23 13:23 98.9 F 70 17 10/23/23 07:00 98.6 F 62 16 10/23/23 02:45 71 80 91 65 16 10/23/23 01:27 99.9 F H 69 18 10/22/23 20:54 71 80 91 65 16 10/22/23 20:22 99.3 F 10/22/23 19:10 101.0 F H 71 16 10/22/23 17:20 98.2 F 80 91 65 10/22/23 16:34 98.1 F 75 17 BP BP BP BP BP Pulse Ox 10/23/23 13:23 134/75 97 10/23/23 07:00 132/74 93 L 10/23/23 02:45 10/23/23 01:27 137/66 94 L 10/22/23 20:54 10/22/23 20:22 10/22/23 19:10 149/66 99 10/22/23 17:20 147/67 128/67 143/66 96 10/22/23 16:34 125/55 95 Intake and Output 10/22/23 10/23/23 10/23/23 22:59 06:59 14:59 Intake Total 118 358 Balance 118 358 Intake: Oral 118 358 Other: # Voids 2 2 Weight 64.41 kg Patient is an elderly female, very pleasant, in no acute distress. Patient does have evidence of bruise in the scrape over the right elbow, and bruise over the right jewish. Patient is alert awake oriented to time place and person. Patient knows it is October 2023 and that she is in [facility] in [place]. Patient's daughter states that usually she is not as oriented as on current examination. Speech and language functions are normal. Patient can name and repeat very well. No aphasia or dysarthria. Attention, concentration and fund of knowledge is adequate. On cranial nerve examination, pupils are equal, round and reacting to light, visual mccoy are full on confrontation, with no neglect on double simultaneous stimulation. Extraocular muscles are intact with no nystagmus. Face is symmetric, tongue protrudes to the midline. Palatal elevation and sensation normal, hearing and shoulder shrug normal, facial sensation normal. On muscle strength testing, there is no pronator drift and the strength is normal in arms and legs distally and proximally. Deep tendon reflexes are symmetric to the biceps, 2 brachioradialis, 2 at the knees, 1 ankles and plantars downgoing. Sensory to touch is equal with no neglect on double simultaneous stimulation. Cerebellar function showed no ataxia for [id number] testing. No dysdiadochokinesia. No ataxia for [id number] testing on either side. Tone and bulk of muscles normal. Gait deferred.. On general examination, there is no carotid bruit or murmur, S1-S2 audible. Chest is clear on consultation. Abdomen is soft nontender. No organomegaly, bowel sounds present. Peripheral pulses are present. No peripheral edema. Results - Laboratory Findings CBC and BMP: 10/23/23 04:54 10/23/23 04:54 Abnormal Lab Findings: Abnormal Labs 10/21/23 10/21/23 10/21/23 18:55 18:55 19:08 WBC 13.8 H RBC Hgb Hct MCHC RDW MPV Neutrophils # 11.5 H Monocytes # Sodium 133 L Chloride BUN 24 H Est GFR (CKD-EPI) BUN/Creatinine Ratio Glucose POC Glucose (mg/dL) Total Protein 6.2 L Urine Appearance Cloudy H Urine Protein Trace H Urine Ketones 2+ H Urine Blood Small H Ur Leukocyte Esterase Large H Urine WBC 18 H Urine Mucus Moderate H 10/22/23 10/22/23 10/22/23 07:24 07:24 17:21 WBC 11.2 H RBC 3.51 L Hgb 10.7 L Hct 31.5 L MCHC RDW MPV Neutrophils # 8.6 H Monocytes # Sodium 136 L Chloride 108 H BUN 19 H Est GFR (CKD-EPI) BUN/Creatinine Ratio Glucose 64 L POC Glucose (mg/dL) 121 H Total Protein Urine Appearance Urine Protein Urine Ketones Urine Blood Ur Leukocyte Esterase Urine WBC Urine Mucus 10/23/23 10/23/23 04:54 04:54 WBC 11.23 H RBC 3.60 L Hgb 10.3 L Hct 32.7 L MCHC 31.5 L RDW 14.9 H MPV 9.4 L Neutrophils # Monocytes # 1.41 H Sodium Chloride BUN Est GFR (CKD-EPI) 57 L BUN/Creatinine Ratio 21.50 H Glucose POC Glucose (mg/dL) Total Protein Urine Appearance Urine Protein Urine Ketones Urine Blood Ur Leukocyte Esterase Urine WBC Urine Mucus Assessment and Plan Assessment: * Syncopal spell, likely orthostatic or vasovagal. Patient had been feeling dizzy before she went to sleep, and also had high fever of 101. These probably resulted in syncopal spell. However patient has no recollection of the fall, and no one witnessed it. * Recent history of fall 3 months ago, felt to be related to dehydration. * Positive orthostatics * Fever, probably due to UTI. Patient on ceftriaxone. * Dementia, mild to moderate degree Plan: * Patient's unwitnessed fall, is of unclear cause, probably orthostatics or vasovagal due to acute UTI. However patient does not remember the fall, which could be related to her history of dementia, or perhaps concussion. * Patient's orthostatics were checked and they were borderline positive. Recommend hydration and continue to follow orthostatics. If persist, may need midodrine. * For UTI patient is on ceftriaxone. * 2D echo revealed LVH with preserved systolic function with EF 55 to 60%. Mildly increased septal wall thickness. Mildly increased posterior wall thickness. Moderately increased left atrial volume. Normal right atrial size. No valvular abnormalities. * Carotid Doppler revealed no significant stenosis. Antegrade flow in both vertebral arteries. * Cardiology also on board. May need event monitor. * We will check EEG to rule out epileptiform activity. * Patient and family were informed of no driving unless seizure free for 6 months, climbing ladders, operating dangerous machinery or unsupervised swimming. * Dr. Teja Mary Will resume neurology service from Wednesday morning. * Thank you for the consultation.
[2023-10-24 09:18] LABS: Basophils # (A) 0.02 X 10*3/uL (0.00-0.10); Basophils % (A) 0.2 %; Eosinophils # (A) 0.36 X 10*3/uL (0.04-0.35); Eosinophils % (A) 3.7 %; HGB 9.4 g/dL (12.0-15.0); Lymphocytes # (A) 1.63 X 10*3/uL (0.90-5.00); Lymphocytes % (A) 16.7 %; MCH 28.7 pg (27.0-32.0); MCHC 32.4 g/dL (32.0-37.0); MCV 88.4 FL (80.0-97.0); Mean Platelet Volume 9.6 FL (9.5-12.2); Monocytes # (A) 1.14 X 10*3/uL (0.20-1.00); Monocytes % (A) 11.7 %; NRBC Per 100 WBC 0 X 10*3/uL (0.00-0.01); Neutrophils # (A) 6.56 X 10*3/uL (1.80-7.70); Neutrophils % (A) 67.4 %; Platelet Count 195 X 10*3/uL (140-440); RBC 3.28 X 10*6/uL (4.10-5.20); RDW 14.6 % (11.5-14.5); WBC 9.74 X 10*3/uL (4.50-10.00)
[2023-10-24 09:19] LABS: Blood Urea Nitrogen 11.8 mg/dL (9.0-27.0); Calcium 8.6 mg/dL (8.7-10.3); Carbon Dioxide 22.2 mmol/L (21.6-31.8); Chloride 110 mmol/L (96-109); Glucose 107 mg/dL (70-110); Potassium 3.4 mmol/L (3.5-5.5); Sodium 141 mmol/L (135-145)
--- NOTE | 2023-10-24 13:35 | P.PN ---
Subjective Progress Note Date: 10/24/23 The patient is an 83-year-old female who presented to the hospital after experiencing a mechanical fall. The patient does have a history of dementia and has subsequently been diagnosed with acute encephalopathy. Cardiology has been consulted for syncope. Initial orthostatic blood pressure reading did show a mild drop in blood pressure. Echocardiogram reveals preserved LV function and without any significant valvular abnormalities. Patient was interviewed and examined resting comfortably in bed. No chest pain or chest pressure. No difficulty breathing. GENERAL: Well-appearing, well-nourished and in no acute distress. NECK: Supple without JVD or thyromegaly. LUNGS: Breath sounds clear to auscultation bilaterally. Respiration equal and unlabored. No wheezes, rales or rhonchi. HEART: Regular rate and rhythm without murmurs, rubs or gallops. S1 and S2 heard. EXTREMITIES: Normal range of motion, no edema. No clubbing or cyanosis. Peripheral pulses intact and strong. TELEMETRY: Sinus rhythm overnight IMPRESSION: Possible syncopal episode Urinary tract infection Status post mechanical fall PLAN: Recommend adequate hydration. Check orthostatic blood pressures Patient may be discharged from the cardiac standpoint I am dictating on behalf of Dr Spenser Santiago's history/physical and assessment/plan. Objective - Vital Signs Vital signs: Vital Signs Temp 98.8 F 10/24/23 07:00 Pulse 80 10/24/23 07:00 Resp 14 10/24/23 07:00 BP 133/63 10/24/23 07:00 Pulse Ox 95 10/24/23 07:00 FiO2 Intake & Output 10/23/23 10/24/23 10/24/23 18:59 06:59 18:59 Intake Total 358 Balance 358 Intake: Oral 358 Other: # Voids 2 2 - Labs CBC & Chem 7: 10/24/23 05:22 10/24/23 05:22 Labs: Abnormal Lab Results - Last 24 Hours (Table) 10/23/23 10/23/23 Range/Units 04:54 04:54 WBC 11.23 H (4.50-10.00) X 10*3/uL RBC 3.60 L (4.10-5.20) X 10*6/uL Hgb 10.3 L (12.0-15.0) g/dL Hct 32.7 L (37.2-46.3) % MCHC 31.5 L (32.0-37.0) g/dL RDW 14.9 H (11.5-14.5) % MPV 9.4 L (9.5-12.2) FL Monocytes # 1.41 H (0.20-1.00) X 10*3/uL Est GFR (CKD-EPI) 57 L (>=60) BUN/Creatinine Ratio 21.50 H (12.00-20.00) Ratio Microbiology - Last 24 Hours (Table) 10/21/23 22:10 Blood Culture - Preliminary Blood 10/21/23 22:25 Blood Culture - Preliminary Blood
[2023-10-24] MEDS ORDERED: Magnesium Replacement Protocol 1 EACH MISC MISCELLANE PRN (13:44)
[2023-10-24] MEDS ORDERED: Potassium Replacement Protocol 1 EACH MISC MISCELLANE PRN (13:44)
[2023-10-24] MEDS: 0.9% NACL WITH KCL 40 MEQ/L 1,000 ML IV SCH (16:46)
[2023-10-24] MEDS: metroNIDAZOLE 500 MG TAB PO SCH (16:46)
[2023-10-24] MEDS: VANCOMYCIN 125 MG CAPSULE PO SCH (21:49)
--- NOTE | 2023-10-25 03:59 | PN ---
PROGRESS NOTE DATE OF SERVICE: 10/24/2023 SUBJECTIVE: This is an 83-year-old woman who was admitted with fall and dehydration, also had UTI. No chest pain, no palpitations, no fever. OBJECTIVE: VITAL SIGNS: Pulse is 59, blood pressure 140/62, respirations 17. CHEST: Clear. CARDIOVASCULAR: S1, S2. ABDOMEN: Soft. NERVOUS SYSTEM: Nonfocal. LABORATORY DATA: Hemoglobin 9, potassium 3.4. Cultures negative so far. ASSESSMENT: 1. Fall and possible dehydration. 2. Acute UTI, present on admission. 3. Hyponatremia, mild. 4. Diabetes mellitus, type 2. 5. Dementia. 6. Hyperlipidemia. 7. Gait dysfunction. RECOMMENDATIONS AND DISCUSSION: I recommended to continue current management, continue symptomatic treatment with antibiotics. PT OT evaluation, otherwise supplement potassium. Guarded prognosis. Further recommendations to follow. MITZI / MODESTAN: [id number] /
[2023-10-25 08:45] LABS: Basophils # (A) 0.03 X 10*3/uL (0.00-0.10); Basophils % (A) 0.3 %; Eosinophils # (A) 0.48 X 10*3/uL (0.04-0.35); Eosinophils % (A) 5.4 %; HGB 9.3 g/dL (12.0-15.0); Lymphocytes # (A) 1.64 X 10*3/uL (0.90-5.00); Lymphocytes % (A) 18.3 %; MCH 28.8 pg (27.0-32.0); MCHC 32.1 g/dL (32.0-37.0); MCV 89.8 FL (80.0-97.0); Mean Platelet Volume 9.9 FL (9.5-12.2); Monocytes # (A) 1.29 X 10*3/uL (0.20-1.00); Monocytes % (A) 14.4 %; NRBC Per 100 WBC 0 X 10*3/uL (0.00-0.01); Neutrophils # (A) 5.49 X 10*3/uL (1.80-7.70); Neutrophils % (A) 61.2 %; Platelet Count 222 X 10*3/uL (140-440); RBC 3.23 X 10*6/uL (4.10-5.20); RDW 14.6 % (11.5-14.5); WBC 8.97 X 10*3/uL (4.50-10.00)
[2023-10-25 08:57] LABS: BUN/Creat Ratio 10.44 Ratio (12.00-20.00); Blood Urea Nitrogen 9.4 mg/dL (9.0-27.0); Calcium 8.5 mg/dL (8.7-10.3); Carbon Dioxide 24.4 mmol/L (21.6-31.8); Chloride 112 mmol/L (96-109); Glucose 96 mg/dL (70-110); Magnesium 1.7 mg/dL (1.5-2.4); Potassium 3.9 mmol/L (3.5-5.5); Sodium 143 mmol/L (135-145)
--- NOTE | 2023-10-25 11:05 | P.PN ---
Subjective HISTORY OF PRESENT ILLNESS: The patient is an 83-year-old female who presented to the hospital after experiencing a mechanical fall. The patient does have a history of dementia and has subsequently been diagnosed with acute encephalopathy. Cardiology has been consulted for syncope. Initial orthostatic blood pressure reading did show a mild drop in blood pressure. Echocardiogram reveals preserved LV function and without any significant valvular abnormalities. 10/24/2023 Patient was interviewed and examined resting comfortably in bed. No chest pain or chest pressure. No difficulty breathing. 10/25/2023 Patient examined this morning at the bedside. Patient currently denies chest pain or pressure. She denies shortness of breath. Orthostatic blood pressures obtained and were negative. Patient was found to be positive for C. difficile. PHYSICAL EXAM: VITAL SIGNS: Reviewed. GENERAL: Well-developed in no acute distress. NECK: Supple. No JVD or thyromegaly LUNGS: Respirations even and unlabored. Lungs essentially clear to auscultation bilaterally. HEART: Regular rate and rhythm. S1 and S2 heard. EXTREMITIES: Normal range of motion. No clubbing or cyanosis. Peripheral pulses intact. No lower extremity edema ASSESSMENT: Possible syncopal episode Urinary tract infection Status post mechanical fall Acute C Diff PLAN: Continue current cardiac medications Patient is stable from a cardiac standpoint with no further inpatient recommendations Patient may be discharged home today from a cardiac standpoint We will sign off. Please reconsult if needed. Nurse practitioner note has been reviewed by physician. Signing provider agrees with the documented findings, assessment, and plan of care documented by PUBLIC SERVICE REPRESENTATIVE as a scribe. Objective - Vital Signs Vital signs: Vital Signs Temp 99.3 F 10/25/23 07:00 Pulse 62 10/25/23 07:00 Resp 15 10/25/23 07:00 BP 163/72 10/25/23 07:00 Pulse Ox 96 10/25/23 07:00 FiO2 Intake & Output 10/24/23 10/25/23 10/25/23 18:59 06:59 18:59 Other: Voiding Method Toilet Toilet # Voids 2 2 # Bowel Movements 2 4 - Labs CBC & Chem 7: 10/25/23 04:16 10/25/23 04:16 Labs: Abnormal Lab Results - Last 24 Hours (Table) 10/25/23 10/25/23 Range/Units 04:16 04:16 RBC 3.23 L (4.10-5.20) X 10*6/uL Hgb 9.3 L (12.0-15.0) g/dL Hct 29.0 L (37.2-46.3) % RDW 14.6 H (11.5-14.5) % Monocytes # 1.29 H (0.20-1.00) X 10*3/uL Eosinophils # 0.48 H (0.04-0.35) X 10*3/uL Chloride 112 H (96-109) mmol/L BUN/Creatinine Ratio 10.44 L (12.00-20.00) Ratio Calcium 8.5 L (8.7-10.3) mg/dL Microbiology - Last 24 Hours (Table) 10/21/23 22:10 Blood Culture - Preliminary Blood 10/21/23 22:25 Blood Culture - Preliminary Blood 10/22/23 22:53 Urine Culture - Final Urine,Voided
--- NOTE | 2023-10-25 15:39 | P.PN ---
Subjective Progress Note Date: 10/25/23 I am seeing the patient for the first time during this admission. Please refer to Dr. Timmons's note for further details. Patient's is at bedside and he stated that was suspected the patient had a passing out episode at home since the patient had a bruise over the elbow and does not recall what transpired. She has been having more episodes of diarrhea at home. Otherwise patient is doing well and does not have any focal deficit. She feels back to baseline. Objective - Vital Signs Vital signs: Vital Signs Temp 99.3 F 10/25/23 07:00 Pulse 62 10/25/23 07:00 Resp 15 10/25/23 07:00 BP 163/72 10/25/23 07:00 Pulse Ox 96 10/25/23 07:00 FiO2 Intake & Output 10/24/23 10/25/23 10/25/23 18:59 06:59 18:59 Other: Voiding Method Toilet Toilet Toilet # Voids 2 2 # Bowel Movements 2 4 - Exam General: Lying in bed and is not in acute distress. Neuro: Patient is awake alert oriented to self place and time. Is following simple commands. No aphasia no neglect Visual mccoy are full to confrontation No facial weakness. The strength is lifted all extremities equally above gravity without any focality. Cerebellar: Normal finger to nose. - Labs CBC & Chem 7: 10/25/23 04:16 10/25/23 04:16 Labs: Abnormal Lab Results - Last 24 Hours (Table) 10/25/23 10/25/23 Range/Units 04:16 04:16 RBC 3.23 L (4.10-5.20) X 10*6/uL Hgb 9.3 L (12.0-15.0) g/dL Hct 29.0 L (37.2-46.3) % RDW 14.6 H (11.5-14.5) % Monocytes # 1.29 H (0.20-1.00) X 10*3/uL Eosinophils # 0.48 H (0.04-0.35) X 10*3/uL Chloride 112 H (96-109) mmol/L BUN/Creatinine Ratio 10.44 L (12.00-20.00) Ratio Calcium 8.5 L (8.7-10.3) mg/dL Microbiology - Last 24 Hours (Table) 10/21/23 22:25 Blood Culture - Preliminary Blood 10/21/23 22:10 Blood Culture - Preliminary Blood Assessment and Plan Assessment: * Syncopal spell, likely orthostatic or vasovagal. Patient had been feeling dizzy before she went to sleep, and also had high fever of 101. These probably resulted in syncopal spell. However patient has no recollection of the fall, and no one witnessed it. * Recent history of fall 3 months ago, felt to be related to dehydration. * Positive orthostatics * Fever, probably due to UTI. Patient on ceftriaxone. * Dementia, mild to moderate degree Plan: * Patient's unwitnessed fall, is of unclear cause, probably orthostatics or vasovagal due to acute UTI. However patient does not remember the fall, which could be related to her history of dementia, or perhaps concussion. * Patient's orthostatics were checked and they were borderline positive. Recommend hydration and continue to follow orthostatics. If persist, may need midodrine. * For UTI patient is on ceftriaxone. * 2D echo revealed LVH with preserved systolic function with EF 55 to 60%. Mildly increased septal wall thickness. Mildly increased posterior wall thickness. Moderately increased left atrial volume. Normal right atrial size. No valvular abnormalities. * Carotid Doppler revealed no significant stenosis. Antegrade flow in both vertebral arteries. * Cardiology also on board. May need event monitor. * Routine EEG: Normal. * Patient and family were informed by Dr. Timmons of no driving unless seizure free for 6 months, climbing ladders, operating dangerous machinery or unsupervised swimming. * Recommend the patient to follow-up with the neurologist as an outpatient within 4 weeks. * Will defer the rest of the medical management to primary team Plan discussed with the patient and her is at bedside There is no further neurological workup. Will sign off. Please reconsult if needed. Time with Patient: Less than 30
--- NOTE | 2023-10-25 20:52 | EEG ---
ELECTROENCEPHALOGRAM REPORT CLINICAL HISTORY: This is an 83-year-old woman with a recent fall episode. The video EEG is obtained to evaluate for seizure epileptiform activity. RELEVANT MEDICATION: The patient is not on any antiepileptic drugs. EEG TYPE: A routine 21-channel EEG with video using the 10/20 electrode placement system. DESCRIPTION: Wakefulness and drowsiness are obtained. During awake state, the posterior-dominant rhythm consists of [id number] voltage of 10 hertz activity that is well modulated, and well sustained. There is no physiological stage 2 sleep architecture. There is no focal slowing. Interictal and ictal is none. ACTIVATION PROCEDURE: Photic stimulation did not evoke a posterior driving response. There is no abnormality during the photic stimulation. Hyperventilation is not performed. CLINICAL INTERPRETATION: This is a normal routine EEG. There is no focal slowing, epileptiform discharge, or seizure on the EEG. A normal routine EEG does not rule out underlying epilepsy. Clinical correlation is recommended. MMDIXON / MITCH: [id number] /
--- NOTE | 2023-10-25 20:55 | P.PN ---
Subjective Progress Note Date: 10/25/23 HISTORY OF PRESENT ILLNESS: 83-year-old my office patient with past medical history of dementia, type 2 diabetes, hypertension, hyperlipidemia who apparently fell at 6:30 in the morning with the hold noise in the bathroom he went and saw the patient and had the floor with blood she had a right elbow injury and bruise on the right forehead the patient does not recall what happened which apparently she fell between 2 AM and 6 AM and could not pull herself out patient apparently had some loose bowel in the bathroom in the bedroom did not have any abdominal pain she had slight nausea and rigors before with sleep and was acting quite confused and to bring her to the emergency department at [facility] were found to have normal vitals temperature 99.1 and up to 101 blood pressure had significant drop from 147/67 to 128/67 she had low sodium at 133 white blood cell UA was positive with 18 white blood cell RSV and COVID were negative CT of the brain was negati ve CT of the cervical spine shows no sign of malalignment, x-ray of the ribs were negative EKG was normal. So patient was admitted for not a clear event with possible syncope from either UTI or encephalopathy or something else. She was seen cardiology and neurology so far her syncopal spell caused her to be orthostatic most likely she had UTI and she was diagnosed with encephalopathy been treated with ceftriaxone. Also she had advanced dementia. Echocardiogram showed normal ejection fraction with moderately increased left atrial volume no valvular abnormality. Carotid ultrasound were negative. Cardiology actively believe patient had orthostatic hypotension. Neurology exam is negative patient will have an EEG to rule out epilepsy. Now with diarrhea C. difficile positive with a very logic to the consequences of what happened the patient had an episode of severe diarrhea created more hypotension orthostatic and dehydration and was most likely related to C. difficile just not following the time of the time. With her memory loss and cognitive created more problem. It took over 24 hours to find the C. difficile in the meanwhile patient is well-hydrated her encephalopathy slightly bit better, still been treated for UTI and had recent cellulitis with the consumption of any of the antibiotic was used for both had probably created and did not help the C. difficile. From neurology standpoint we are planning to do an EEG today to exclude the possibility of seizure. Laboratory value pending shows slight anemia with hemoglobin of 9.3, kidney function and dehydration is much better with creatinine is down to 0.9 GFR is at 64. Patient still waiting to see infectious disease today and to see if there is any change in management for C. difficile with switching patient from her current medication to see if she can benefit from doing Dificid or discontinue vancomycin and Flagyl for now. Patient seems to response called the to the management. Still on probiotic as well. REVIEW OF SYSTEMS: CONSTITUTIONAL: Well-developed no acute respiratory distress. EYES: No icterus sclerae, no conjunctivitis. EARS, NOSE, MOUTH, THROAT, and FACE: No sore throat, lymphadenopathy, carotid bruits or deformity. RESPIRATORY: No SOB cough or wheezes. CARDIOVASCULAR: No CP, Palpitation, PND, Orthopnea, or angina. GASTROINTESTINAL: No Abd pain, Nausea or vomiting, no Diarrhea or constipation, No GI Bleed, no distention or masses. GENITOURINARY: Negative for Hematuria or UTI, no kidney stones. INTEGUMENT/BREAST: Negative for any muscular injury with mild osteoarthritis.. HEMATOLOGIC/LYMPHATIC: Negative for bleed or purpura. MUSCULOSKELTAL: Negative for Myalgia or arthralgia. NEURLOGICAL: No LOC, Sz or syncope, blurred vision dizziness or abnormality.. BEHAVIORAL/PSYCH: Negative. ENDOCRINE: Negative. PHYSICAL EXAMINATION: General Appearance: Alert, cooperative, no distress, appears stated age. Neck HEENT: Supple, no lymphadenopathy, no thyroid enlargement, no carotid bruits. Lungs: Clear to auscultation without crackles or wheezes no rhonchi, no deformity. Chest Wall: Chest wall normal expansion with deep inspiration no tenderness and no deformity was found on exam, no costochondral pain or discomfort. Heart: Regular rate and rhythm, S1, S2 normal, no murmur, rub or gallop. Back: Symmetric, no curvature, ROM normal, no CVA tenderness. Abdomen: Soft, non-tender, bowel sounds active all four quadrants, no masses, no organomegaly. Extremities: Extremities normal, atraumatic, no cyanosis or edema. Pulses: 2+ and symmetric. Skin: Skin color, texture, tugor normal, no rashes or lesions. Neurologic: Alert oriented x3 cranial nerves II through XII intact, no motor deficit, no abnormal balance or gait. ASSESSMENT AND PLAN: _Syncope: Cardiac etiology possible vasovagal possible related to severe dehydration from severe diarrhea, to exclude any other possibility still seen neurology and still waiting for EEG, continue treatment management for C. difficile infection. _Orthostatic hypotension: Continue hydration still having diarrhea from C. difficile meds biggest contributing factor to the orthostatic change. _C. difficile infection: C. difficile by PCR was positive patient apparently was started on Flagyl will switch patient to Dificid or vancomycin orally with probiotic. _Metabolic encephalopathy: From C. difficile and UTI, treat underlying disease continue current management. Still on Rocephin and will continue oral Ceftin for total of 5 more days. _Dementia: Alzheimer's type, remain on donepezil 10 mg twice a day seems to do well with it. _Hypertension: Has been on losartan 100 mg daily made medication need to be adjusted down to 50 if blood pressure is low. Specially while she is dehydrated. _Hyperlipidemia: Remain on rosuvastatin and Zetia. _Reactive airway/asthma: Has been on Ventolin and Pulmicort doing very well. GERD: Still on omeprazole._ _Allergy: Remain on montelukast along with Zyrtec. _Mild iron deficiency anemia: Continue multivitamin and iron supplement. CODE STATUS: Full code. Discussion: Patient will be having an EEG today, will switch patient to an active form of C. difficile management might see infectious disease for possible Dificid. Objective - Vital Signs Vital signs: Vital Signs Temp 98.4 F 10/25/23 02:00 Pulse 59 L 10/25/23 02:22 Resp 15 10/25/23 02:22 BP 134/75 10/25/23 02:00 Pulse Ox 97 10/25/23 02:00 FiO2 Intake & Output 10/24/23 10/24/23 10/25/23 06:59 18:59 06:59 Other: Voiding Method Toilet Toilet # Voids 2 2 1 # Bowel Movements 2 1 - Labs CBC & Chem 7: 10/25/23 04:16 10/25/23 04:16 Labs: Abnormal Lab Results - Last 24 Hours (Table) 10/24/23 10/24/23 Range/Units 05:22 05:22 RBC 3.28 L (4.10-5.20) X 10*6/uL Hgb 9.4 L (12.0-15.0) g/dL Hct 29.0 L (37.2-46.3) % RDW 14.6 H (11.5-14.5) % Monocytes # 1.14 H (0.20-1.00) X 10*3/uL Eosinophils # 0.36 H (0.04-0.35) X 10*3/uL Potassium 3.4 L (3.5-5.5) mmol/L Chloride 110 H (96-109) mmol/L Est GFR (CKD-EPI) 57 L (>=60) BUN/Creatinine Ratio 11.80 L (12.00-20.00) Ratio Calcium 8.6 L (8.7-10.3) mg/dL Microbiology - Last 24 Hours (Table) 10/21/23 22:10 Blood Culture - Preliminary Blood 10/21/23 22:25 Blood Culture - Preliminary Blood 10/22/23 22:53 Urine Culture - Final Urine,Voided
[2023-10-26 02:33] VITALS: RESP 16
--- NOTE | 2023-10-26 06:41 | P.CONS ---
History of Present Illness - Reason for Consult Consult date: 10/25/23 C. difficile positive Requesting physician: Rosa Kathleen - Chief Complaint Diarrhea x few days - History of Present Illness Patient is 83-year-old female with a past medical history significant for hyperlipidemia dementia anxiety recent admission at [facility] for facial cellulitis while the patient has completed course of oral Zyvox patient presenting to [facility] ER about 4 days ago for evaluation of altered mental status patient was noticed to be more confused the day before presentation to the hospital and apparently did have a fall patient also complaining of significant diarrhea with multiple loose stools and some crampy abdominal pain mild to moderate intensity nausea but no vomiting diarrhea frequency has been multiple times however mention overall her diarrhea has slowed down denies any urinary symptoms patient on presentation to the hospital did have a fever of 101 F on 10/22/2023 and a low-grade fever of 100.7 on 10/23/2023 patient fever has subsequently resolved patient was not tachycardic hypotensive or hypoxic no need for supplemental oxygen patient did have a white count of 13.8 on admission white count is normal at seven 9.74 as of this morning creatinine has been normal C. difficile EIA was negative however PCR was positive patient has been treated with oral vancomycin infectious disease was consulted for further management Review of Systems Positive point and negatives has been mentioned in the HPI, complete review of systems was performed and all other systems are negative Past Medical History Past Medical History: Dementia, Hyperlipidemia History of Any Multi-Drug Resistant Organisms: None Reported Past Surgical History: No Surgical Hx Reported Past Psychological History: Anxiety Smoking Status: Never smoker Past Alcohol Use History: None Reported Past Drug Use History: None Reported Medications and Allergies Home Medications Medication Instructions Recorded Confirmed Type Albuterol Nebulized [Ventolin 2.5 mg INHALATION RT-QID PRN 10/22/23 10/22/23 History Nebulized] Albuterol Sulfate [Ventolin HFA] 1 - 2 puff INHALATION RT-Q6H PRN 10/22/23 10/22/23 History Ascorbic Acid [Vitamin C] 500 mg PO DAILY 10/22/23 10/22/23 History Aspirin 81 mg PO HS 10/22/23 10/22/23 History Budesonide-Formot 160-4.5 Mcg 2 puff INHALATION RT-BID 10/22/23 10/22/23 History [Symbicort 160-4.5 Mcg Inhaler] Cetirizine HCl [Zyrtec] 10 mg PO DAILY 10/22/23 10/22/23 History Cholecalciferol [Vitamin D3 (25 50 mcg PO DAILY 10/22/23 10/22/23 History Mcg = 1000 Iu)] Co Q-10 100mg 100 mg PO DAILY 10/22/23 10/22/23 History Donepezil HCl [Aricept] 10 mg PO BID 10/22/23 10/22/23 History Escitalopram [Lexapro] 5 mg PO DAILY 10/22/23 10/22/23 History Ezetimibe [Zetia] 10 mg PO DAILY 10/22/23 10/22/23 History Fish Oil/Dha/Epa [Fish Oil 1,200 1 cap PO DAILY 10/22/23 10/22/23 History mg Fish Oil] Glucosamine-Msm 1 tab PO DAILY 10/22/23 10/22/23 History Levothyroxine Sodium [Synthroid] 50 mcg PO DAILY 10/22/23 10/22/23 History Losartan Potassium [Cozaar] 100 mg PO HS 10/22/23 10/22/23 History Magnesium 250 mg PO BID 10/22/23 10/22/23 History Montelukast [Singulair] 10 mg PO HS 10/22/23 10/22/23 History Multivit-Min/FA/Lycopen/Lutein 1 tab PO DAILY 10/22/23 10/22/23 History [Centrum Silver Tablet] Omeprazole [PriLOSEC] 20 mg PO W/SUPPER 10/22/23 10/22/23 History Rosuvastatin [Crestor] 10 mg PO HS 10/22/23 10/22/23 History cycloSPORINE 0.05% OPHTH SOLN 1 drop BOTH EYES BID 10/22/23 10/22/23 History [Restasis] Vancomycin Oral Solution 250 mg PO Q6HR #64 dose 10/26/23 Rx [Vancomycin HCl Oral Soln] metroNIDAZOLE [Flagyl] 500 mg PO TID #42 tab 10/26/23 Rx Allergies Allergy/AdvReac Type Severity Reaction Status Date / Time Sulfa (Sulfonamide AdvReac Nausea & Verified 10/22/23 07:46 Antibiotics) Vomiting & Diarrhea Physical Exam Vitals: Vital Signs Temp Pulse Pulse Pulse Pulse Pulse Resp 10/25/23 07:00 99.3 F 62 15 10/25/23 02:22 59 L 83 76 73 69 15 10/25/23 02:00 98.4 F 63 10/24/23 21:49 59 L 83 76 73 69 15 10/24/23 20:00 98.9 F 69 10/24/23 14:41 83 76 73 15 BP BP BP BP Pulse Ox 10/25/23 07:00 163/72 96 10/25/23 02:22 10/25/23 02:00 134/75 97 10/24/23 21:49 10/24/23 20:00 153/60 97 10/24/23 14:41 143/70 159/71 150/66 96 Intake and Output 10/24/23 10/25/23 10/25/23 22:59 06:59 14:59 Other: Voiding Method Toilet Toilet # Voids 1 2 # Bowel Movements 2 4 GENERAL DESCRIPTION: Elderly female lying in bed, no distress. No tachypnea or accessory muscle of respiration use. HEENT: Shows Pallor , no scleral icterus. Oral mucous membrane is dry. No pharyngeal erythema or thrush NECK: Trachea central, no thyromegaly. LUNGS: Unlabored breathing. Clear to auscultation anteriorly. No wheeze or crackle. HEART: S1, S2, regular rate and rhythm. No loud murmur ABDOMEN: Soft, no tenderness , guarding or rigidity, no organomegaly EXTREMITIES: No edema of feet. SKIN: No rash, no masses palpable. NEUROLOGICAL: The patient is awake, alert, oriented x3, mood and affect normal. Results CBC & Chem 7: 10/25/23 04:16 10/25/23 04:16 Labs: Abnormal Lab Results - Last 24 Hours (Table) 10/25/23 10/25/23 Range/Units 04:16 04:16 RBC 3.23 L (4.10-5.20) X 10*6/uL Hgb 9.3 L (12.0-15.0) g/dL Hct 29.0 L (37.2-46.3) % RDW 14.6 H (11.5-14.5) % Monocytes # 1.29 H (0.20-1.00) X 10*3/uL Eosinophils # 0.48 H (0.04-0.35) X 10*3/uL Chloride 112 H (96-109) mmol/L BUN/Creatinine Ratio 10.44 L (12.00-20.00) Ratio Calcium 8.5 L (8.7-10.3) mg/dL Microbiology - Last 24 Hours (Table) 10/21/23 22:10 Blood Culture - Preliminary Blood 10/21/23 22:25 Blood Culture - Preliminary Blood 10/22/23 22:53 Urine Culture - Final Urine,Voided Assessment and Plan (1) C. difficile diarrhea Status: Acute Code(s): A04.72 - ENTEROCOLITIS D/T CLOSTRIDIUM DIFFICILE, NOT SPCF RECUR SNOMED Code(s): 7396127234551 Plan: 1patient presented to hospital with sepsis in this patient who did have a fever elevated white count did have significant diarrhea and recent exposure to antibiotics for facial cellulitis likely representing C. difficile colitis. 2patient seem to have shown clinical response to vancomycin as the patient fever has resolved white count has normalized as well we will continue patient on oral vancomycin we do have the option of oral Dificid however we will have to check the cost for outpatient use this has been explained to the patient and the family. 3patient has been encouraged to increase her probiotic and yogurt intake. Family at the bedside multiple question concern answered. We will follow on clinical condition and cultures to further adjust medication if needed Thank you for this consultation we will follow the patient along with you Dictation was produced using [employer] dictation software. please excuse any grammatical, word or spelling errors. Time with Patient: Greater than 30
[2023-10-26 07:45] VITALS: BP 147/72; PULSE 76; TEMP 98.5
--- NOTE | 2023-10-26 21:52 | P.DS ---
Providers Date of admission: 10/22/23 12:06 Attending physician: Juan Shultz Consults: 10/22/23 11:36 Consult Physician Routine Consulting Provider: Teja Mary Consult Reason/Comments: syncope Do you want consulting provider notified?: Yes 10/24/23 18:52 Consult Physician Routine Consulting Provider: Srinivasan Juárez Consult Reason/Comments: C.Dif positive Do you want consulting provider notified?: Yes Primary care physician: [facility] [place] Course: HISTORY OF PRESENT ILLNESS: 83-year-old my office patient with past medical history of dementia, type 2 diab etes, hypertension, hyperlipidemia who apparently fell at 6:30 in the morning with the hold noise in the bathroom he went and saw the patient and had the floor with blood she had a right elbow injury and bruise on the right forehead the patient does not recall what happened which apparently she fell between 2 AM and 6 AM and could not pull herself out patient apparently had some loose bowel in the bathroom in the bedroom did not have any abdominal pain she had slight nausea and rigors before with sleep and was acting quite confused and to bring her to the emergency department at [facility] were found to have normal vitals temperature 99.1 and up to 101 blood pressure had significant drop from 147/67 to 128/67 she had low sodium at 133 white blood cell UA was positive with 18 white blood cell RSV and COVID were negative CT of the brain was negative CT of the cervical spine shows no sign of malalignment, x-ray of the ribs were negative EKG was normal. So patient was admitted for not a clear event with possible syncope from either UTI or encephalopathy or something else. She was seen cardiology and neurology so far her syncopal spell caused her to be orthostatic most likely she had UTI and she was diagnosed with encephalopathy been treated with ceftriaxone. Also she had advanced dementia. Echocardiogram showed normal ejection fraction with moderately increased left atrial volume no valvular abnormality. Carotid ultrasound were negative. Cardiology actively believe patient had orthostatic hypotension. Neurology exam is negative patient will have an EEG to rule out epilepsy. Now with diarrhea C. difficile positive with a very logic to the consequences of what happened the patient had an episode of severe diarrhea created more hypotension orthostatic and dehydration and was most likely related to C. difficile just not following the time of the time. With her memory loss and cognitive created more problem. It took over 24 hours to find the C. difficile in the meanwhile patient is well-hydrated her encephalopathy slightly bit better, still been treated for UTI and had recent cellulitis with the consumption of any of the antibiotic was used for both had probably created and did not help the C. difficile. From neurology standpoint we are planning to do an EEG today to exclude the possibility of seizure. Laboratory value pending shows slight anemia with hemoglobin of 9.3, kidney function and dehydration is much better with creatinine is down to 0.9 GFR is at 64. Patient still waiting to see infectious disease today and to see if there is any change in management for C. difficile with switching patient from her current medication to see if she can benefit from doing Dificid or discontinue vancomycin and Flagyl for now. Patient seems to response called the to the management. Still on probiotic as well. 10/26/2023: She is doing very well diarrhea is much better had few bowel movement that become more pasty stool not watery diarrhea anymore, based on the value of the oral medication decided to continue metronidazole and vancomycin orally no need for Dificid at this point unless there is a failure to treatment specially with depressive medication as an outpatient. Also patient and family agree to discharge home today to follow-up as an outpatient in the next few days did not see the need to go to rehab the patient mobility and with minor help has been much better. REVIEW OF SYSTEMS: CONSTITUTIONAL: Well-developed no acute respiratory distress. EYES: No icterus sclerae, no conjunctivitis. EARS, NOSE, MOUTH, THROAT, and FACE: No sore throat, lymphadenopathy, carotid bruits or deformity. RESPIRATORY: No SOB cough or wheezes. CARDIOVASCULAR: No CP, Palpitation, PND, Orthopnea, or angina. GASTROINTESTINAL: No Abd pain, Nausea or vomiting, no Diarrhea or constipation, No GI Bleed, no distention or masses. GENITOURINARY: Negative for Hematuria or UTI, no kidney stones. INTEGUMENT/BREAST: Negative for any muscular injury with mild osteoarthritis.. HEMATOLOGIC/LYMPHATIC: Negative for bleed or purpura. MUSCULOSKELTAL: Negative for Myalgia or arthralgia. NEURLOGICAL: No LOC, Sz or syncope, blurred vision dizziness or abnormality.. BEHAVIORAL/PSYCH: Negative. ENDOCRINE: Negative. PHYSICAL EXAMINATION: General Appearance: Alert, cooperative, no distress, appears stated age. Neck HEENT: Supple, no lymphadenopathy, no thyroid enlargement, no carotid bruits. Lungs: Clear to auscultation without crackles or wheezes no rhonchi, no deformity. Chest Wall: Chest wall normal expansion with deep inspiration no tenderness and no deformity was found on exam, no costochondral pain or discomfort. Heart: Regular rate and rhythm, S1, S2 normal, no murmur, rub or gallop. Back: Symmetric, no curvature, ROM normal, no CVA tenderness. Abdomen: Soft, non-tender, bowel sounds active all four quadrants, no masses, no organomegaly. Extremities: Extremities normal, atraumatic, no cyanosis or edema. Pulses: 2+ and symmetric. Skin: Skin color, texture, tugor normal, no rashes or lesions. Neurologic: Alert oriented x3 cranial nerves II through XII intact, no motor deficit, no abnormal balance or gait. ASSESSMENT AND PLAN: _Syncope: With study most likely the event happened as the patient had seizures created quite by dehydration and hypotension. With orthostatic change and it is probably giving her the syncopal episode at this point otherwise cardiac etiology possible vasovagal possible related to severe dehydration from severe diarrhea all other study and testing came back to be negative. EEG was negative today. _Orthostatic hypotension: From severe dehydration most likely related to C. difficile cause severe dehydration caused hypotension and also to grow patient to become more symptomatic. _C. difficile infection: C. difficile was very positive patient remain on the Flagyl and vancomycin orally was seen infectious disease and agree with the current management and plan. _Metabolic encephalopathy: From C. difficile and UTI, treat underlying disease continue current management. Patient is off any further antibiotic for UTI at this point. _Dementia: Alzheimer's type, remain on donepezil 10 mg twice a day seems to do well with it. _Hypertension: Has been on losartan 100 mg daily made medication need to be adjusted down to 50 if blood pressure is low. Specially while she is dehydrated. _Hyperlipidemia: Remain on rosuvastatin and Zetia. _Reactive airway/asthma: Has been on Ventolin and Pulmicort doing very well. GERD: Still on omeprazole._ _Allergy: Remain on montelukast along with Zyrtec. _Mild iron deficiency anemia: Continue multivitamin and iron supplement. CODE STATUS: Full code. Discussion: Patient had severe dehydration related to C. difficile cause syncope no orthostatic hypotension or close probably her symptoms in the first place she is recovering nicely at this point specially with the C. difficile management going well. Hospital course: She was admitted to the hospital on 10/21/2023 with an event that found to be with syncopal episode that she had severe episode of diarrhea become quite dehydrated she passed out on the bathroom floor after an episode of nausea vomiting and diarrhea with rigorous she found by family classics professor call 911 and brought her to the emergency department at [facility] where was seen and evaluated she found to have temperature of 99-1 01 with blood pressure fluctuating quite bed with sodium at 133, UA was positive with her diarrhea C. difficile was requested initially came back to be negative then turned to be positive with a PCR. Full workup for syncopal episode including echocardiogram, carotid ultrasound, testing with culture and [id number] friend to be kind of negative. Patient was initiated management for severe dehydration and and C. difficile infection by being on vancomycin and Flagyl and she responded to treatment very well on third day of management her diarrhea become much better. Patient was seen infectious disease and cardiology all along. Also seen neurology her full te sting including EEG came back to be negative. Patient has quite very advanced dementia has been on donepezil and no change lately. Dehydration has improved significantly with much better kidney function and GFR her orthostatic hypotension corrected nicely as well. Patient will be continued on Flagyl and vancomycin orally to complete total of 2 weeks and she will be discharged home today on 10/26/2023. Time spent on discharging patient was over 35 minutes. Patient Condition at Discharge: Stable Plan - Discharge Summary Discharge Rx Participant: No New Discharge Prescriptions: New metroNIDAZOLE [Flagyl] 500 mg PO TID #42 tab Vancomycin Oral Solution [Vancomycin HCl Oral Soln] 250 mg PO Q6HR #64 dose Continue Albuterol Nebulized [Ventolin Nebulized] 2.5 mg INHALATION RT-QID PRN PRN Reason: Shortness Of Breath Budesonide-Formot 160-4.5 Mcg [Symbicort 160-4.5 Mcg Inhaler] 2 puff INHALATION RT-BID Albuterol Sulfate [Ventolin HFA] 1 - 2 puff INHALATION RT-Q6H PRN PRN Reason: Shortness Of Breath Cholecalciferol [Vitamin D3 (25 Mcg = 1000 Iu)] 50 mcg PO DAILY Ascorbic Acid [Vitamin C] 500 mg PO DAILY Multivit-Min/FA/Lycopen/Lutein [Centrum Silver Tablet] 1 tab PO DAILY cycloSPORINE 0.05% OPHTH SOLN [Restasis] 1 drop BOTH EYES BID Montelukast [Singulair] 10 mg PO HS Magnesium 250 mg PO BID Omeprazole [PriLOSEC] 20 mg PO W/SUPPER Cetirizine HCl [Zyrtec] 10 mg PO DAILY Aspirin 81 mg PO HS Rosuvastatin [Crestor] 10 mg PO HS Levothyroxine Sodium [Synthroid] 50 mcg PO DAILY Donepezil HCl [Aricept] 10 mg PO BID Co Q-10 100mg 100 mg PO DAILY Glucosamine-Msm 1 tab PO DAILY Fish Oil/Dha/Epa [Fish Oil 1,200 mg Fish Oil] 1 cap PO DAILY Escitalopram [Lexapro] 5 mg PO DAILY Losartan Potassium [Cozaar] 100 mg PO HS Ezetimibe [Zetia] 10 mg PO DAILY Discharge Medication List Albuterol Nebulized [Ventolin Nebulized] 2.5 mg INHALATION RT-QID PRN 10/22/23 [History] Albuterol Sulfate [Ventolin HFA] 1 - 2 puff INHALATION RT-Q6H PRN 10/22/23 [History] Ascorbic Acid [Vitamin C] 500 mg PO DAILY 10/22/23 [History] Aspirin 81 mg PO HS 10/22/23 [History] Budesonide-Formot 160-4.5 Mcg [Symbicort 160-4.5 Mcg Inhaler] 2 puff INHALATION RT-BID 10/22/23 [History] Cetirizine HCl [Zyrtec] 10 mg PO DAILY 10/22/23 [History] Cholecalciferol [Vitamin D3 (25 Mcg = 1000 Iu)] 50 mcg PO DAILY 10/22/23 [History] Co Q-10 100mg 100 mg PO DAILY 10/22/23 [History] Donepezil HCl [Aricept] 10 mg PO BID 10/22/23 [History] Escitalopram [Lexapro] 5 mg PO DAILY 10/22/23 [History] Ezetimibe [Zetia] 10 mg PO DAILY 10/22/23 [History] Fish Oil/Dha/Epa [Fish Oil 1,200 mg Fish Oil] 1 cap PO DAILY 10/22/23 [History] Glucosamine-Msm 1 tab PO DAILY 10/22/23 [History] Levothyroxine Sodium [Synthroid] 50 mcg PO DAILY 10/22/23 [History] Losartan Potassium [Cozaar] 100 mg PO HS 10/22/23 [History] Magnesium 250 mg PO BID 10/22/23 [History] Montelukast [Singulair] 10 mg PO HS 10/22/23 [History] Multivit-Min/FA/Lycopen/Lutein [Centrum Silver Tablet] 1 tab PO DAILY 10/22/23 [History] Omeprazole [PriLOSEC] 20 mg PO W/SUPPER 10/22/23 [History] Rosuvastatin [Crestor] 10 mg PO HS 10/22/23 [History] cycloSPORINE 0.05% OPHTH SOLN [Restasis] 1 drop BOTH EYES BID 10/22/23 [History] Vancomycin Oral Solution [Vancomycin HCl Oral Soln] 250 mg PO Q6HR #64 dose 10/26/23 [Rx] metroNIDAZOLE [Flagyl] 500 mg PO TID #42 tab 10/26/23 [Rx] Follow up Appointment(s)/Referral(s): Juan Shultz MD [Primary Care Provider] - 1-2 days Srinivasan Juárez MD [STAFF PHYSICIAN] - 11/08/23 3:00 pm Patient Instructions/Handouts: C. Diff (Clostridioides Difficile) Infection (DC), Encephalopathy (DC) Discharge Disposition: HOME SELF-CARE
== END 2023-10-26 11:15 | disposition home or self-care (01) | DRG 371 ==
LOC: EC 16:09 → 6NMEDSUR 21:19 → OBSVTOIN 10-22 12:06 → 6NMEDSUR 10-22 16:22
PROVIDERS: ADMIT Internal Medicine Geriatric Medicine; ATTEND Internal Medicine Geriatric Medicine
DX: A04.72 Enterocolitis due to Clostridium difficile, not specified as recurrent (principal); G93.41 Metabolic encephalopathy; N39.0 Urinary tract infection, site not specified; E87.1 Hypo-osmolality and hyponatremia; F02.84 Dementia in other diseases classified elsewhere, unspecified severity, with anxiety; G30.9 Alzheimer's disease, unspecified; S51.011A Laceration without foreign body of right elbow, initial encounter; W19.XXXA Unspecified fall, initial encounter; E78.5 Hyperlipidemia, unspecified; K21.9 Gastro-esophageal reflux disease without esophagitis; D50.9 Iron deficiency anemia, unspecified; E11.9 Type 2 diabetes mellitus without complications; I95.1 Orthostatic hypotension; I10 Essential (primary) hypertension; E86.0 Dehydration; R56.9 Unspecified convulsions; R26.9 Unspecified abnormalities of gait and mobility; Y92.009 Unspecified place in unspecified non-institutional (private) residence as the place of occurrence of the external cause; Z88.2 Allergy status to sulfonamides; Z91.81 History of falling; Z79.899 Other long term (current) drug therapy; Z79.890 Hormone replacement therapy; Z79.82 Long term (current) use of aspirin; Z79.51 Long term (current) use of inhaled steroids
CPT/HCPCS: 36415; 70450; 72125; 80048; 80053; 80306; 81001; 83735; 84443; 84484; 85025; 85610; 85730; 87040; 87086; 87324; 87493; 87636; 93005; 93306; 93880; 94640; 95816; 96361; 96365; 96366; 96372; 96375; 99285

== ENCOUNTER 2023-11-15 19:24 | Observation (INO) | payer MEDICARE ==
--- NOTE | 2023-11-15 20:25 | ED ---
Fall HPI - General Chief Complaint: Fall Stated Complaint: Syncope, Diarrhea Time Seen by Provider: 11/15/23 19:37 Source: patient, EMS, RN notes reviewed, old records reviewed Mode of arrival: EMS - History of Present Illness Initial Comments: 83-year-old female with past medical history significant for dementia, type 2 diabetes, hypertension hyperlipidemia recently discharged from this facility discharge 10/26/2023 presenting to the ED with chief complaint of fall. During prior admission patient was admitted with fall/possible syncopal episode. Was evaluated by neurology and cardiology at this time likely due to orthostasis, which was likely due to ongoing C. difficile infection. Patient upon discharge was to be continued on oral Flagyl and vancomycin which patient reports she recently completed. Today, patient states that she fell while in the bathroom. Is unsure of the events leading to the fall however states that she thinks she hit the back of her head as she notes pain in the back of her head. Also notes pain of her right hip and lower back since the fall. Reports that she has uncontrollably defecated on herself and urinated on herself since then however denies saddle anesthesia. Does notes although she has completed antibiotics and has still had ongoing difficulties with diarrhea. Denies fever or chills. Denies chest pain or shortness of breath. - Related Data Home Medications Medication Instructions Recorded Confirmed Albuterol Nebulized [Ventolin 2.5 mg INHALATION RT-QID PRN 10/22/23 10/22/23 Nebulized] Albuterol Sulfate [Ventolin HFA] 1 - 2 puff INHALATION RT-Q6H PRN 10/22/23 10/22/23 Ascorbic Acid [Vitamin C] 500 mg PO DAILY 10/22/23 10/22/23 Aspirin 81 mg PO HS 10/22/23 10/22/23 Budesonide-Formot 160-4.5 Mcg 2 puff INHALATION RT-BID 10/22/23 10/22/23 [Symbicort 160-4.5 Mcg Inhaler] Cetirizine HCl [Zyrtec] 10 mg PO DAILY 10/22/23 10/22/23 Cholecalciferol [Vitamin D3 (25 50 mcg PO DAILY 10/22/23 10/22/23 Mcg = 1000 Iu)] Co Q-10 100mg 100 mg PO DAILY 10/22/23 10/22/23 Donepezil HCl [Aricept] 10 mg PO BID 10/22/23 10/22/23 Escitalopram [Lexapro] 5 mg PO DAILY 10/22/23 10/22/23 Ezetimibe [Zetia] 10 mg PO DAILY 10/22/23 10/22/23 Fish Oil/Dha/Epa [Fish Oil 1,200 1 cap PO DAILY 10/22/23 10/22/23 mg Fish Oil] Glucosamine-Msm 1 tab PO DAILY 10/22/23 10/22/23 Levothyroxine Sodium [Synthroid] 50 mcg PO DAILY 10/22/23 10/22/23 Losartan Potassium [Cozaar] 100 mg PO HS 10/22/23 10/22/23 Magnesium 250 mg PO BID 10/22/23 10/22/23 Montelukast [Singulair] 10 mg PO HS 10/22/23 10/22/23 Multivit-Min/FA/Lycopen/Lutein 1 tab PO DAILY 10/22/23 10/22/23 [Centrum Silver Tablet] Omeprazole [PriLOSEC] 20 mg PO W/SUPPER 10/22/23 10/22/23 Rosuvastatin [Crestor] 10 mg PO HS 10/22/23 10/22/23 cycloSPORINE 0.05% OPHTH SOLN 1 drop BOTH EYES BID 10/22/23 10/22/23 [Restasis] Previous Rx's Medication Instructions Recorded Vancomycin Oral Solution 250 mg PO Q6HR #64 dose 10/26/23 [Vancomycin HCl Oral Soln] metroNIDAZOLE [Flagyl] 500 mg PO TID #42 tab 10/26/23 Allergies Allergy/AdvReac Type Severity Reaction Status Date / Time Sulfa (Sulfonamide AdvReac Nausea & Verified 11/15/23 19:33 Antibiotics) Vomiting & Diarrhea Review of Systems ROS Statement: Those systems with pertinent positive or pertinent negative responses have been documented in the HPI. ROS Other: All systems not noted in ROS Statement are negative. Past Medical History Past Medical History: Dementia, Hyperlipidemia History of Any Multi-Drug Resistant Organisms: None Reported Past Surgical History: No Surgical Hx Reported Past Psychological History: Anxiety Smoking Status: Never smoker Past Alcohol Use History: None Reported Past Drug Use History: None Reported General Exam Limitations: no limitations General appearance: alert, in no apparent distress Head exam: Present: other (No cruz signs or raccoon's eyes.) Eye exam: Present: normal appearance Neck exam: Present: normal inspection Respiratory exam: Present: normal lung sounds bilaterally Cardiovascular Exam: Present: regular rate GI/Abdominal exam: Present: soft. Absent: distended, tenderness, guarding, rebound, rigid Rectal exam: Present: other (Exam chaperoned by Rizwana CABAN. Good rectal tone) Extremities exam: Present: other (Full active range of motion bilateral upper extremities. Able to flex bilateral lower extremities at the hip with no difficulty. Pelvis stable.) Back exam: Present: other (No midline cervical or thoracic spinal tenderness to palpation however patient did note pain upon palpation of the upper lumbar spine.) Neurological exam: Present: alert, oriented X3 Skin exam: Present: warm, dry Course Vital Signs 11/15/23 11/15/23 19:28 21:56 Temperature 98.9 F 99.2 F Pulse Rate 68 80 Respiratory 18 16 Rate Blood Pressure 130/68 110/56 O2 Sat by Pulse 97 97 Oximetry Medical Decision Making - Medical Decision Making Was pt. sent in by a medical professional or institution (, PA, FLOUR MIXER HELPER, urgent care, hospital, or care home...) When possible be specific @ -No Did you speak to anyone other than the patient for history (EMS, parent, family, police, friend...)? What history was obtained from this source @ -Spoke to patient and family for history. Did you review nursing and triage notes (agree or disagree)? Why? @ -I reviewed and agree with nursing and triage notes Were old charts reviewed (outside hosp., previous admission, EMS record, old EKG, old radiological studies, urgent care reports/EKG's, care home records)? Report findings @ -Also reviewed prior admission. For further details please see HPI. Differential Diagnosis (chest pain, altered mental status, abdominal pain women, abdominal pain men, vaginal bleeding, weakness, fever, dyspnea, syncope, headache, dizziness, GI bleed, back pain, seizure, CVA, palpatations, mental health, musculoskeletal)? @ -Differential Musculoskeletal Muscular strain, contusion, ligament sprain, fracture, arthritis, septic arthritis, bursitis, cellulitis, muscle spasm, nerve compression, DVT, arterial occlusion, herpes zoster, electrolyte abnormality, tumor.... This is not meant to be in all inclusive list EKG interpreted by me (3pts min.). @ -EKG interpreted me showing a sinus rhythm with nonspecific ST-T wave changes. OK 140, QRS 89, QT/QTc 350/376. X-rays interpreted by me (1pt min.). @ -X-ray of the pelvis and chest interpreted me which revealed no evidence of acute finding. Lumbar x-ray pending at this time. CT interpreted by me (1pt min.). @ -CT brain and cervical spine interpreted me which revealed no evidence of acute finding. U/S interpreted by me (1pt. min.). @ -None done What testing was considered but not performed or refused? (CT, X-rays, U/S, labs)? Why? @ -None What meds were considered but not given or refused? Why? @ -None Did you discuss the management of the patient with other professionals (professionals i.e. , PA, FLOUR MIXER HELPER, lab, RT, psych nurse, social worker psychiatric, nurse monitoring, teacher, armor officer, correctional case records supervisor)? Give summary @ -Case discussed with Dr. Shultz, who accepts admission. Was smoking cessation discussed for >3mins.? @ -No Was critical care preformed (if so, how long)? @ -No Were there social determinants of health that impacted care today? How? (Homelessness, low income, unemployed, alcoholism, drug addiction, transportation, low edu. Level, literacy, decrease access to med. care, retirement, rehab)? @ -No Was there de-escalation of care discussed even if they declined (Discuss DNR or withdrawal of care, Hospice)? DNR status @ -No What co-morbidities impacted this encounter? (DM, HTN, Smoking, COPD, CAD, Cancer, CVA, ARF, Chemo, Hep., AIDS, mental health diagnosis, sleep apnea, morbid obesity)? @ -Dementia, type 2 diabetes, hypertension, hyperlipidemia Was patient admitted / discharged? Hospital course, mention meds given and route, prescriptions, significant lab abnormalities, going to OR and other pertinent info. @ -Admission 83-year-old female recently discharged from this facility after syncopal episode with fall additionally with C. difficile presenting to the ED with a chief complaint of fall today with head injury. Laboratory studies reviewed. CBC does show an elevated white blood cell count at 13.9. Chemistry panel largely unremarkable. Troponin undetectable. Urine shows small leukocyte Estrace, 5 w tami blood cells, rare bacteria. C. difficile positive. CT scan of the cervical spine and brain revealed no evidence of acute process. Chest x-ray and pelvis x-ray revealed no evidence of acute process. Patient will be admitted with IV antibiotics secondary to continued C. difficile infection. Consult placed to infectious disease. Undiagnosed new problem with uncertain prognosis? @ -No Drug Therapy requiring intensive monitoring for toxicity (Heparin, Nitro, Insulin, Cardizem)? @ -No Were any procedures done? @ -No Diagnosis/symptom? @ -Status post fall, C. difficile Acute, or Chronic, or Acute on Chronic? @ -Acute Uncomplicated (without systemic symptoms) or Complicated (systemic symptoms)? @ -Complicated Side effects of treatment? @ -No Exacerbation, Progression, or Severe Exacerbation? @ -No Poses a threat to life or bodily function? How? (Chest pain, [place], [place], pneumonia, PE, COPD, DKA, ARF, appy, cholecystitis, CVA, Diverticulitis, Homicidal, Suicidal, threat to staff... and all critical care pts) @ -Unlikely at this time - Lab Data Result diagrams: 11/15/23 20:22 11/15/23 20:22 Lab Results 11/15/23 11/15/23 11/15/23 Range/Units 20:22 20:22 20:22 WBC 13.9 H (3.8-10.6) k/uL RBC 4.19 (3.80-5.40) m/uL Hgb 12.1 (11.4-16.0) gm/dL Hct 38.6 (34.0-46.0) % MCV 92.1 (80.0-100.0) fL MCH 28.8 (25.0-35.0) pg MCHC 31.3 (31.0-37.0) g/dL RDW 15.2 (11.5-15.5) % Plt Count 227 (150-450) k/uL MPV 7.1 Neutrophils % 89 % Lymphocytes % 4 % Monocytes % 4 % Eosinophils % 2 % Basophils % 0 % Neutrophils # 12.4 H (1.3-7.7) k/uL Lymphocytes # 0.6 L (1.0-4.8) k/uL Monocytes # 0.6 (0-1.0) k/uL Eosinophils # 0.2 (0-0.7) k/uL Basophils # 0.0 (0-0.2) k/uL PT 10.2 (10.0-12.5) sec INR 0.9 (<1.2) APTT 21.5 L (22.0-30.0) sec Sodium (137-145) mmol/L Potassium (3.5-5.1) mmol/L Chloride (98-107) mmol/L Carbon Dioxide (22-30) mmol/L Anion Gap mmol/L BUN (7-17) mg/dL Creatinine (0.52-1.04) mg/dL Est GFR (CKD-EPI)AfAm (>60 ml/min/1.73 sqM) Est GFR (CKD-EPI)NonAf (>60 ml/min/1.73 sqM) Glucose (74-99) mg/dL Plasma Lactic Acid Orlin (0.7-2.0) mmol/L Calcium (8.4-10.2) mg/dL Magnesium (1.6-2.3) mg/dL Total Bilirubin (0.2-1.3) mg/dL AST (14-36) U/L ALT (4-34) U/L Alkaline Phosphatase (38-126) U/L Troponin I (0.000-0.034) ng/mL Total Protein (6.3-8.2) g/dL Albumin (3.5-5.0) g/dL Urine Color Yellow Urine Appearance Clear (Clear) Urine pH 5.5 (5.0-8.0) Ur Specific [place] 1.033 (1.001-1.035) Urine Protein Trace H (Negative) Urine Glucose (UA) Negative (Negative) Urine Ketones 1+ H (Negative) Urine Blood Negative (Negative) Urine Nitrite Negative (Negative) Urine Bilirubin Negative (Negative) Urine Urobilinogen <2.0 (<2.0) mg/dL Ur Leukocyte Esterase Small H (Negative) Urine RBC 1 (0-5) /hpf Urine WBC 5 (0-5) /hpf Ur Squamous Epith Cells 2 (0-4) /hpf Urine Bacteria Rare H (None) /hpf Hyaline Casts 1 (0-2) /lpf Urine Mucus Few H (None) /hpf C. difficile (EIA) Intrp (Negative) 11/15/23 11/15/23 11/15/23 Range/Units 20:22 20:22 20:22 WBC (3.8-10.6) k/uL RBC (3.80-5.40) m/uL Hgb (11.4-16.0) gm/dL Hct (34.0-46.0) % MCV (80.0-100.0) fL MCH (25.0-35.0) pg MCHC (31.0-37.0) g/dL RDW (11.5-15.5) % Plt Count (150-450) k/uL MPV Neutrophils % % Lymphocytes % % Monocytes % % Eosinophils % % Basophils % % Neutrophils # (1.3-7.7) k/uL Lymphocytes # (1.0-4.8) k/uL Monocytes # (0-1.0) k/uL Eosinophils # (0-0.7) k/uL Basophils # (0-0.2) k/uL PT (10.0-12.5) sec INR (<1.2) APTT (22.0-30.0) sec Sodium 135 L (137-145) mmol/L Potassium 4.2 (3.5-5.1) mmol/L Chloride 105 (98-107) mmol/L Carbon Dioxide 23 (22-30) mmol/L Anion Gap 7 mmol/L BUN 24 H (7-17) mg/dL Creatinine 1.02 (0.52-1.04) mg/dL Est GFR (CKD-EPI)AfAm 60 (>60 ml/min/1.73 sqM) Est GFR (CKD-EPI)NonAf 52 (>60 ml/min/1.73 sqM) Glucose 129 H (74-99) mg/dL Plasma Lactic Acid Orlin 1.1 (0.7-2.0) mmol/L Calcium 9.2 (8.4-10.2) mg/dL Magnesium 1.7 (1.6-2.3) mg/dL Total Bilirubin 0.8 (0.2-1.3) mg/dL AST 31 (14-36) U/L ALT 17 (4-34) U/L Alkaline Phosphatase 66 (38-126) U/L Troponin I <0.012 (0.000-0.034) ng/mL Total Protein 6.4 (6.3-8.2) g/dL Albumin 3.7 (3.5-5.0) g/dL Urine Color Urine Appearance (Clear) Urine pH (5.0-8.0) Ur Specific [place] (1.001-1.035) Urine Protein (Negative) Urine Glucose (UA) (Negative) Urine Ketones (Negative) Urine Blood (Negative) Urine Nitrite (Negative) Urine Bilirubin (Negative) Urine Urobilinogen (<2.0) mg/dL Ur Leukocyte Esterase (Negative) Urine RBC (0-5) /hpf Urine WBC (0-5) /hpf Ur Squamous Epith Cells (0-4) /hpf Urine Bacteria (None) /hpf Hyaline Casts (0-2) /lpf Urine Mucus (None) /hpf C. difficile (EIA) Intrp (Negative) 11/15/23 Range/Units 22:56 WBC (3.8-10.6) k/uL RBC (3.80-5.40) m/uL Hgb (11.4-16.0) gm/dL Hct (34.0-46.0) % MCV (80.0-100.0) fL MCH (25.0-35.0) pg MCHC (31.0-37.0) g/dL RDW (11.5-15.5) % Plt Count (150-450) k/uL MPV Neutrophils % % Lymphocytes % % Monocytes % % Eosinophils % % Basophils % % Neutrophils # (1.3-7.7) k/uL Lymphocytes # (1.0-4.8) k/uL Monocytes # (0-1.0) k/uL Eosinophils # (0-0.7) k/uL Basophils # (0-0.2) k/uL PT (10.0-12.5) sec INR (<1.2) APTT (22.0-30.0) sec Sodium (137-145) mmol/L Potassium (3.5-5.1) mmol/L Chloride (98-107) mmol/L Carbon Dioxide (22-30) mmol/L Anion Gap mmol/L BUN (7-17) mg/dL Creatinine (0.52-1.04) mg/dL Est GFR (CKD-EPI)AfAm (>60 ml/min/1.73 sqM) Est GFR (CKD-EPI)NonAf (>60 ml/min/1.73 sqM) Glucose (74-99) mg/dL Plasma Lactic Acid Orlin (0.7-2.0) mmol/L Calcium (8.4-10.2) mg/dL Magnesium (1.6-2.3) mg/dL Total Bilirubin (0.2-1.3) mg/dL AST (14-36) U/L ALT (4-34) U/L Alkaline Phosphatase (38-126) U/L Troponin I (0.000-0.034) ng/mL Total Protein (6.3-8.2) g/dL Albumin (3.5-5.0) g/dL Urine Color Urine Appearance (Clear) Urine pH (5.0-8.0) Ur Specific [place] (1.001-1.035) Urine Protein (Negative) Urine Glucose (UA) (Negative) Urine Ketones (Negative) Urine Blood (Negative) Urine Nitrite (Negative) Urine Bilirubin (Negative) Urine Urobilinogen (<2.0) mg/dL Ur Leukocyte Esterase (Negative) Urine RBC (0-5) /hpf Urine WBC (0-5) /hpf Ur Squamous Epith Cells (0-4) /hpf Urine Bacteria (None) /hpf Hyaline Casts (0-2) /lpf Urine Mucus (None) /hpf C. difficile (EIA) Intrp Positive A (Negative) Disposition Clinical Impression: Fall, C. difficile diarrhea Disposition: ADMITTED IP TO THIS HOSP Condition: Fair Referrals: Juan Shultz MD [Primary Care Provider] - 1-2 days Time of Disposition: 23:30
[2023-11-15 20:37] LABS: Basophils % (A) 0 %; Eosinophils # (A) 0.2 k/uL (0-0.7); Eosinophils % (A) 2 %; HCT 38.6 % (34.0-46.0); HGB 12.1 gm/dL (11.4-16.0); Lymphocytes # (A) 0.6 k/uL (1.0-4.8); Lymphocytes % (A) 4 %; MCH 28.8 pg (25.0-35.0); MCHC 31.3 g/dL (31.0-37.0); MCV 92.1 fL (80.0-100.0); Mean Platelet Volume 7.1; Monocytes # (A) 0.6 k/uL (0-1.0); Monocytes % (A) 4 %; Neutrophils # (A) 12.4 k/uL (1.3-7.7); Neutrophils % (A) 89 %; Platelet Count 227 k/uL (150-450); RBC 4.19 m/uL (3.80-5.40); RDW 15.2 % (11.5-15.5); WBC 13.9 k/uL (3.8-10.6)
[2023-11-15] MEDS: ACETAMINOPHEN IV (For NPO) 1,000 MG in EMPTY BAG 1 BAG IVPB STA (20:52)
[2023-11-15 21:00] LABS: ALT 17 U/L (4-34); AST 31 U/L (14-36); African American GFR (CKD) 60 (>60 ml/min/1.73 sqM); Albumin 3.7 g/dL (3.5-5.0); Alkaline Phosphatase 66 U/L (38-126); Anion Gap 7 mmol/L; Blood Urea Nitrogen 24 mg/dL (7-17); Calcium 9.2 mg/dL (8.4-10.2); Carbon Dioxide 23 mmol/L (22-30); Chloride 105 mmol/L (98-107); Glucose 129 mg/dL (74-99); Magnesium 1.7 mg/dL (1.6-2.3); Non-African American GFR(CKD) 52 (>60 ml/min/1.73 sqM); Potassium 4.2 mmol/L (3.5-5.1); Sodium 135 mmol/L (137-145); Total Bilirubin 0.8 mg/dL (0.2-1.3); Total Protein 6.4 g/dL (6.3-8.2)
[2023-11-15 21:05] LABS: INR 0.9 (<1.2); Prothrombin Time 10.2 sec (10.0-12.5)
[2023-11-15 21:10] LABS: Partial Thromboplastin Time 21.5 sec (22.0-30.0)
--- NOTE | 2023-11-15 21:20 | CT ---
EXAMINATION TYPE: CT brain cspine wo con CT DLP: 1538.6 mGycm, Automated exposure control for dose reduction was used. DATE OF EXAM: 11/15/2023 8:50 PM COMPARISON: 10/21/2023 CLINICAL INDICATION:Female, 83 years old with history of s/p fall on thinners; s/p Fall on thinners. TECHNIQUE: Brain: Multiple axial CT images of the brain were obtained without IV contrast. Cspine: Axial CT images from the skull base to the inferior aspect of T2 we obtained without intraven ous contrast. Coronal and sagittal reformatted images were also reviewed. . FINDINGS: Brain: Extra-axial spaces: No abnormal extra-axial fluid collections. Ventricular system: Dilatation in proportion to cerebral atrophy. Cerebral parenchyma: Cerebral atrophy. No acute intraparenchymal hemorrhage or mass effect. The loya -white junction is well differentiated. Scattered hypoattenuating areas are seen within the white mat ter. Cerebellum: Unremarkable. Mass effect: No evidence of midline shift. Intracranial vasculature: Atherosclerotic calcifications of the intracranial vessels. Soft tissues: Normal. Calvarium/osseous structures: No depressed skull fracture. Paranasal sinuses and mastoid air cells: Clear. Visualized orbits: Bilateral aphakia. Cervical spine: Fracture: None. Osseous structures: Multilevel degenerative disc disease changes with endplate spurring and disc oste ophyte complex's. Vertebral alignment: Within normal limits. Spinal canal/Neural Foramina: No evidence of significant spinal canal narrowing. No evidence for sign ificant neural foraminal stenosis. Neck soft tissues: Prevertebral soft tissues are within normal limits. Other: The airway is patent. The lung apices are clear. IMPRESSION: 1. No acute intracranial process. 2. Nonspecific white matter changes, likely secondary to chronic small vessel ischemic disease. 3. No evidence of cervical spine fracture. 4. Mild multilevel degenerative disc disease.
[2023-11-15 23:05] LABS: Appearance,Urine Clear (Clear); Bacteria,Urine Rare /hpf; Bilirubin,Urine Negative (Negative); Blood,Urine Negative (Negative); Color,Urine Yellow; Glucose,Urine (UA) Negative (Negative); Hyaline Casts,Urine 1 /lpf (0-2); Ketones,Urine 1+ (Negative); Leukocyte Esterase,Urine Small (Negative); Mucus,Urine Few /hpf; Nitrite,Urine Negative (Negative); PH, Urine 5.5 (5.0-8.0); Protein,Urine Trace (Negative); RBC,Urine 1 /hpf (0-5); Specific Gravity,Urine 1.033 (1.001-1.035); Squamous Epithelial Cell,Urine 2 /hpf (0-4); Urobilinogen,Urine <2.0 mg/dL (<2.0); WBC,Urine 5 /hpf (0-5)
--- NOTE | 2023-11-16 | XR ---
EXAM: XR Chest, 2 Views CLINICAL HISTORY: ITS.REASON XR Reason: s/p fall TECHNIQUE: Frontal and lateral views of the chest. COMPARISON: No relevant prior studies available. FINDINGS: Lungs: Unremarkable. No consolidation. Pleural space: Unremarkable. No pneumothorax. Heart: Unremarkable. No cardiomegaly. Mediastinum: Unremarkable. Normal mediastinal contour. Bones/joints: Unremarkable. No acute fracture. IMPRESSION: No consolidation.
--- NOTE | 2023-11-16 | XR ---
EXAM: XR Pelvis, 1 or 2 Views CLINICAL HISTORY: ITS.REASON XR Reason: s/p fall TECHNIQUE: Frontal view of the pelvis. COMPARISON: No relevant prior studies available. FINDINGS: Bones/joints: Osseous demineralization. No acute fracture. No dislocation. Soft tissues: Unremarkable. IMPRESSION: No acute fracture.
[2023-11-16] MEDS ORDERED: VANCOMYCIN IV PER PHARMACY 1 EACH MISC MISCELLANE PRN (00:28)
[2023-11-16] MEDS ORDERED: ONDANSETRON 4 MG/2 ML VIAL IVP PRN (00:31)
[2023-11-16] MEDS ORDERED: NALOXONE 0.4 MG/ML 1 ML VIAL IV PRN (00:31)
[2023-11-16] MEDS ORDERED: VANCOMYCIN 1,250 MG in SODIUM CHLORIDE 0.9% 250 ML IVPB ONE (01:00)
--- NOTE | 2023-11-16 01:36 | XR ---
EXAM: XR Lumbosacral Spine, 2 or 3 Views CLINICAL HISTORY: ITS.REASON XR Reason: s/p fall TECHNIQUE: Frontal and lateral views of the lumbar spine and sacrum. COMPARISON: No relevant prior studies available. FINDINGS: Vertebrae: Multilevel lumbar spondylosis and degenerative endplate changes. Facet arthropathy. Osseous demineralization. No acute compression fracture or spondylolisthesis. Sacrum/coccyx: Unremarkable as visualized. No acute fracture. Disc spaces: No acute findings. No significant narrowing. Soft tissues: Unremarkable. IMPRESSION: No acute compression fracture or spondylolisthesis.
[2023-11-16] MEDS: metroNIDAZOLE-NS PMX 500 MG in SALINE 1 100ML.BAG IVPB STA (01:38)
[2023-11-16] MEDS: SODIUM CHLORIDE 0.9% 1,000 ML IV SCH (01:42)
[2023-11-16] MEDS ORDERED: ALBUTEROL HFA INHALER INHALATION PRN (06:30)
[2023-11-16] MEDS ORDERED: ALBUTEROL NEBULIZED 2.5 MG/3 ML INHALATION PRN (06:30)
[2023-11-16] MEDS ORDERED: VANCOMYCIN 125 MG CAPSULE PO SCH (09:00)
[2023-11-16] MEDS ORDERED: NON FORMULARY DRUG (Co Q-10 100mg 100 MG) PO SCH (09:00)
[2023-11-16] MEDS ORDERED: NON FORMULARY DRUG (Fish Oil/Dha/Epa [Fish Oil 1,200 Mg Fish Oil] 1 EACH Capsule) PO SCH (09:00)
[2023-11-16] MEDS: ACETAMINOPHEN TAB 325 MG TAB PO PRN (09:07)
[2023-11-16] MEDS: ASCORBIC ACID 500 MG TAB PO SCH (09:08)
[2023-11-16] MEDS: LORATADINE 10 MG TAB PO SCH (09:09)
[2023-11-16] MEDS: MAGNESIUM OXIDE 400 MG TAB PO SCH (09:09)
[2023-11-16] MEDS: metroNIDAZOLE 500 MG TAB PO SCH (09:09)
[2023-11-16] MEDS: CHOLECALCIFEROL 25 MCG (1000 IU) TABLET PO SCH (09:09)
[2023-11-16] MEDS: MULTIVITAMINS, THERA 1 EACH TAB PO SCH (09:09)
[2023-11-16] MEDS: EZETIMIBE 10 MG TAB PO SCH (09:10)
[2023-11-16] MEDS: DONEPEZIL 10 MG TAB PO SCH (09:11)
[2023-11-16] MEDS: FIDAXOMICIN 200 MG TABLET PO SCH (09:11)
[2023-11-16] MEDS: LEVOTHYROXINE 50 MCG TAB PO SCH (09:12)
[2023-11-16] MEDS: cycloSPORINE 0.05% OPHTH 0.4 ML DROPERETTE BOTH EYES SCH (10:39)
[2023-11-16] MEDS: ESCITALOPRAM 5 MG TAB PO SCH (10:39)
[2023-11-16] MEDS: SYMBICORT 160-4.5 MCG INHALER INHALATION SCH (10:46)
[2023-11-16] MEDS ORDERED: VANCOMYCIN ORAL SOLUTION 250 MG/5 ML BOTTLE PO SCH (12:00)
[2023-11-16] MEDS: PANTOPRAZOLE 40 MG TABLET PO SCH (16:57)
[2023-11-16] MEDS: KETOROLAC 15 MG/ML 1 ML VIAL IVP PRN (18:13)
[2023-11-16] MEDS: ASPIRIN 81 MG PO SCH (20:44)
[2023-11-16] MEDS: LOSARTAN 50 MG TAB PO SCH (20:44)
[2023-11-16] MEDS: MONTELUKAST 10 MG TAB PO SCH (20:44)
[2023-11-16] MEDS: ATORVASTATIN 20 MG TAB PO SCH (20:45)
--- NOTE | 2023-11-16 22:56 | P.CONS ---
History of Present Illness - Reason for Consult Consult date: 11/16/23 C. difficile Requesting physician: Vamsi Gleason - Chief Complaint Diarrhea weakness and fall x 1 day - History of Present Illness Patient is 83-year-old female with a past medical history significant for type 2 diabetes mellitus hypertension dementia hyperlipidemia anxiety recently admitted to hospital and was treated for C. difficile colitis patient did complete a course of oral vancomycin and seem to be doing well patient has been brought back to the hospital last night apparently patient had fell in the bathroom per the who provided most of the history patient has been feeling weak for the last day or 2 however did not mention anything to the about diarrhea patient went to the bathroom and apparently felt weak and fell down and the patient did have uncontrollably defecated on herself and urinated patient was brought into the hospital on presentation to the hospital patient was afebrile and no fever have been recorded subsequently patient was not tachycardic hypotensive or hypoxic did have white count of 13.9 creatinine 1.02 liver isms are normal urine has been negative stool for C. difficile was positive patient was started on Flagyl and vancomycin infectious disease was consulted for further management of antibiotic therapy Review of Systems Positive point and negatives has been mentioned in the HPI, complete review of systems was performed and all other systems are negative Past Medical History Past Medical History: Dementia, Hyperlipidemia History of Any Multi-Drug Resistant Organisms: None Reported Past Surgical History: No Surgical Hx Reported Past Psychological History: Anxiety Smoking Status: Never smoker Past Alcohol Use History: None Reported Past Drug Use History: None Reported Medications and Allergies Home Medications Medication Instructions Recorded Confirmed Type Albuterol Nebulized [Ventolin 2.5 mg INHALATION RT-QID PRN 10/22/23 11/16/23 History Nebulized] Albuterol Sulfate [Ventolin HFA] 1 - 2 puff INHALATION RT-Q6H PRN 10/22/23 11/16/23 History Ascorbic Acid [Vitamin C] 500 mg PO DAILY 10/22/23 11/16/23 History Aspirin 81 mg PO HS 10/22/23 11/16/23 History Budesonide-Formot 160-4.5 Mcg 2 puff INHALATION RT-BID 10/22/23 11/16/23 History [Symbicort 160-4.5 Mcg Inhaler] Cetirizine HCl [Zyrtec] 10 mg PO DAILY 10/22/23 11/16/23 History Cholecalciferol [Vitamin D3 (25 50 mcg PO DAILY 10/22/23 11/16/23 History Mcg = 1000 Iu)] Co Q-10 100mg 100 mg PO DAILY 10/22/23 11/16/23 History Donepezil HCl [Aricept] 10 mg PO BID 10/22/23 11/16/23 History Escitalopram [Lexapro] 5 mg PO DAILY 10/22/23 11/16/23 History Ezetimibe [Zetia] 10 mg PO DAILY 10/22/23 11/16/23 History Fish Oil/Dha/Epa [Fish Oil 1,200 1 cap PO DAILY 10/22/23 11/16/23 History mg Fish Oil] Glucosamine-Msm 1 tab PO DAILY 10/22/23 11/16/23 History Levothyroxine Sodium [Synthroid] 50 mcg PO DAILY 10/22/23 11/16/23 History Losartan Potassium [Cozaar] 100 mg PO HS 10/22/23 11/16/23 History Magnesium 250 mg PO BID 10/22/23 11/16/23 History Montelukast [Singulair] 10 mg PO HS 10/22/23 11/16/23 History Multivit-Min/FA/Lycopen/Lutein 1 tab PO DAILY 10/22/23 11/16/23 History [Centrum Silver Tablet] Omeprazole [PriLOSEC] 20 mg PO W/SUPPER 10/22/23 11/16/23 History Rosuvastatin [Crestor] 10 mg PO HS 10/22/23 11/16/23 History cycloSPORINE 0.05% OPHTH SOLN 1 drop BOTH EYES BID 10/22/23 11/16/23 History [Restasis] Fidaxomicin [Dificid] 200 mg PO BID #20 tab 11/17/23 Rx Cholestyramine (with Sugar) 4 gm PO BID@1100,1800 #60 packet 11/19/23 Rx [Questran Packet] Vancomycin HCl [Vancocin HCl] 250 mg PO AC-TID #84 cap 11/19/23 Rx Allergies Allergy/AdvReac Type Severity Reaction Status Date / Time Sulfa (Sulfonamide AdvReac Nausea & Verified 11/16/23 07:27 Antibiotics) Vomiting & Diarrhea Physical Exam Vitals: Vital Signs Temp Pulse Resp BP Pulse Ox 11/16/23 06:45 71 19 117/68 95 11/16/23 02:00 98.8 F 77 16 108/60 95 11/15/23 21:56 99.2 F 80 16 110/56 97 11/15/23 19:28 98.9 F 68 18 130/68 97 Intake and Output 11/15/23 11/16/23 11/16/23 22:59 06:59 14:59 Other: Weight 65.771 kg GENERAL DESCRIPTION: Elderly female lying in bed, no distress. No tachypnea or accessory muscle of respiration use. HEENT: Shows Pallor , no scleral icterus. Oral mucous membrane is dry. No pharyngeal erythema or thrush NECK: Trachea central, no thyromegaly. LUNGS: Unlabored breathing. Clear to auscultation anteriorly. No wheeze or crackle. HEART: S1, S2, regular rate and rhythm. No loud murmur ABDOMEN: Soft, no tenderness , guarding or rigidity, no organomegaly EXTREMITIES: No edema of feet. SKIN: No rash, no masses palpable. NEUROLOGICAL: The patient is awake, alert, oriented x3, mood and affect normal. Results CBC & Chem 7: 11/18/23 07:15 11/18/23 07:15 Labs: Abnormal Lab Results - Last 24 Hours (Table) 11/15/23 11/15/23 11/15/23 Range/Units 20:22 20:22 20:22 WBC 13.9 H (3.8-10.6) k/uL Neutrophils # 12.4 H (1.3-7.7) k/uL Lymphocytes # 0.6 L (1.0-4.8) k/uL APTT 21.5 L (22.0-30.0) sec Sodium (137-145) mmol/L BUN (7-17) mg/dL Glucose (74-99) mg/dL Urine Protein Trace H (Negative) Urine Ketones 1+ H (Negative) Ur Leukocyte Esterase Small H (Negative) Urine Bacteria Rare H (None) /hpf Urine Mucus Few H (None) /hpf C. difficile (EIA) Intrp (Negative) 11/15/23 11/15/23 Range/Units 20:22 22:56 WBC (3.8-10.6) k/uL Neutrophils # (1.3-7.7) k/uL Lymphocytes # (1.0-4.8) k/uL APTT (22.0-30.0) sec Sodium 135 L (137-145) mmol/L BUN 24 H (7-17) mg/dL Glucose 129 H (74-99) mg/dL Urine Protein (Negative) Urine Ketones (Negative) Ur Leukocyte Esterase (Negative) Urine Bacteria (None) /hpf Urine Mucus (None) /hpf C. difficile (EIA) Intrp Positive A (Negative) Assessment and Plan (1) C. difficile colitis Status: Acute Code(s): A04.72 - ENTEROCOLITIS D/T CLOSTRIDIUM DIFFICILE, NOT SPCF RECUR SNOMED Code(s): 659255116 Plan: 1patient presented to hospital with did have diarrhea in this patient recently diagnosed and treated for C. difficile colitis with oral vancomycin likely representing relapse of the infection from regeneration of the spores 2-we will discontinue Flagyl and vancomycin 3-start the patient on Dificid encouraged to increase her probiotic and yogurt intake 4-if diarrhea persist will add Questran for symptomatic relief avoid antimotility agent Question concern answered We will follow on clinical condition and cultures to further adjust medication if needed Thank you for this consultation we will follow the patient along with you Dictation was produced using [employer] dictation software. please excuse any grammatical, word or spelling errors. Time with Patient: Greater than 30
--- NOTE | 2023-11-17 12:56 | P.HPIM ---
History of Present Illness H&P Date: 11/16/23 HISTORY OF PRESENT ILLNESS: 83-year-old office patient with active medical history of dementia, hypertension, hyperlipidemia, type 2 diabetes, recurrent UTI, mild incontinence, chronic lower back pain who was admitted on October 15, 2023 for syncopal episode with an event happened at home that patient passed out in the bathroom and ended up having slight close head injury with no other major trauma ended up coming to the emergency department medically cleared Vinay Givens was evaluated found to have a temperature of 101 with fluctuation of her blood pressure and found to [place] ve consistent diarrhea along with UTI had diarrhea found to be C. difficile abrasion. Patient was started on treatment and management initially her UTI was managed with ceftriaxone after C. difficile was found for her ceftriaxone was stopped completely. For C. difficile management patient was seen infectious disease and agreed to keep her on vancomycin and Flagyl did not see the need to do with Dificid at the time for no failure to treatment. After first few days patient has done very well and her diarrhea started having firm stool. Was discharged home on continue on vancomycin and Flagyl for several weeks. The patient just stopped her treatment recently. Patient apparently had another fall in the bathroom today with syncopal episode was not cleared completely was not witnessed but she fell backward hit her head developed to have slight with pain she also developed to have right hip pain and discomfort from the fall she had apparently episode of uncontrollable defecation with severe diarrhea which most likely what he ate more orthostatic hypotension and developed to cause her to be dizzy and cause her passing out symptoms on follow-up this time as well. End up coming to the emergency department where was seen and evaluated at [facility] Several x-ray CAT scan of the head and neck did not show any acute intracranial hemorrhage no evidence of cervical spine fracture but had multi degenerative disc disease, x-ray of the pelvis came back negative for fracture chest x-ray shows no consolidation, lumbar spine x-ray showed no acute compression fracture or spondylolithiasis. EKG showed normal sinus rhythm with pulse rate 73. Laboratory evaluation showed white blood cell 13,900 left shifted her normal PT INR creatinine 1.02 blood sugar of 129 normal troponin UA is not totally clear and had positive C. difficile. Patient was started on treatment management for C. difficile as well with Flagyl and vancomycin will consult infectious disease patient most likely need to be treated with Dificid. Maybe after done with Dificid we will keep her on vancomycin taper dose likely always done to complete total of 6 weeks. Meanwhile continue hydration continue to watch patient hemodynamic, orthostatic change and for any change might be consistent with her recent injury. REVIEW OF SYSTEMS: CONSTITUTIONAL: Well-developed no acute respiratory distress. EYES: No icterus sclerae, no conjunctivitis. EARS, NOSE, MOUTH, THROAT, and FACE: No sore throat, lymphadenopathy, carotid bruits or deformity. RESPIRATORY: No SOB cough or wheezes. CARDIOVASCULAR: No CP, Palpitation, PND, Orthopnea, or angina. GASTROINTESTINAL: No Abd pain, Nausea or vomiting, no Diarrhea or constipation, No GI Bleed, no distention or masses. GENITOURINARY: Negative for Hematuria or UTI, no kidney stones. INTEGUMENT/BREAST: Negative for any muscular injury with mild osteoarthritis.. HEMATOLOGIC/LYMPHATIC: Negative for bleed or purpura. MUSCULOSKELTAL: Negative for Myalgia or arthralgia. NEURLOGICAL: No LOC, Sz or syncope, blurred vision dizziness or abnormality.. BEHAVIORAL/PSYCH: Negative. ENDOCRINE: Negative. PHYSICAL EXAMINATION: General Appearance: Alert, cooperative, no distress, appears stated age. Neck HEENT: Supple, no lymphadenopathy, no thyroid enlargement, no carotid bruits. Lungs: Clear to auscultation without crackles or wheezes no rhonchi, no deformity. Chest Wall: Chest wall normal expansion with deep inspiration no tenderness and no deformity was found on exam, no costochondral pain or discomfort. Heart: Regular rate and rhythm, S1, S2 normal, no murmur, rub or gallop. Back: Symmetric, no curvature, ROM normal, no CVA tenderness. Abdomen: Soft, non-tender, bowel sounds active all four quadrants, no masses, no organomegaly. Extremities: Extremities normal, atraumatic, no cyanosis or edema. Pulses: 2+ and symmetric. Skin: Skin color, texture, tugor normal, no rashes or lesions. Neurologic: Alert oriented x3 cranial nerves II through XII intact, no motor deficit, no abnormal balance or gait. ASSESSMENT AND PLAN: _Recurrent C. difficile infection: Was treated last month and just finished treatment recently was seen infectious disease treatment was with Flagyl and vancomycin orally and developed to have recurrent episode of diarrhea with worsening abdominal discomfort last few days which probably would create more orthostatic hypotension and dehydration and caused her syncopal episode. _Syncope: Again most likely from the severity of her dehydration and orthostatic hypotension and causing her to have a syncopal episode. Her full workup from last admission was completely done. _Orthostatic hypotension: Continue hydration and watch symptoms carefully continue IV fluid for now. Repeat testing in 4 hours. _Reactive airway/asthma: Has been on Ventolin and Pulmicort doing very well. _Dementia: Alzheimer's type, remain on donepezil 10 mg twice a day seems to do well with it. _Hypertension: Has been on losartan 100 mg daily made medication need to be adjusted down to 50 if blood pressure is low. Specially while she is dehydrated. _Change in mental status with mild confusion, metabolic encephalopathy most likely from the severity of dehydration lung infection. _Hyperlipidemia: Remain on rosuvastatin and Zetia. _Mild iron deficiency anemia: Continue multivitamin and iron supplement. _GERD: Still on omeprazole._ _Allergy: Remain on montelukast along with Zyrtec. _GI prophylaxis: Patient be continued on omeprazole. _DVT prophylaxis: Early mobilization and knee-high. Hose. CODE STATUS: Full code. Admit patient to inpatient service more than 2 nights Past Medical History Past Medical History: Dementia, Hyperlipidemia History of Any Multi-Drug Resistant Organisms: None Reported Past Surgical History: No Surgical Hx Reported Past Psychological History: Anxiety Smoking Status: Never smoker Past Alcohol Use History: None Reported Past Drug Use History: None Reported Medications and Allergies Home Medications Medication Instructions Recorded Confirmed Type Albuterol Nebulized [Ventolin 2.5 mg INHALATION RT-QID PRN 10/22/23 10/22/23 History Nebulized] Albuterol Sulfate [Ventolin HFA] 1 - 2 puff INHALATION RT-Q6H PRN 10/22/23 10/22/23 History Ascorbic Acid [Vitamin C] 500 mg PO DAILY 10/22/23 10/22/23 History Aspirin 81 mg PO HS 10/22/23 10/22/23 History Budesonide-Formot 160-4.5 Mcg 2 puff INHALATION RT-BID 10/22/23 10/22/23 History [Symbicort 160-4.5 Mcg Inhaler] Cetirizine HCl [Zyrtec] 10 mg PO DAILY 10/22/23 10/22/23 History Cholecalciferol [Vitamin D3 (25 50 mcg PO DAILY 10/22/23 10/22/23 History Mcg = 1000 Iu)] Co Q-10 100mg 100 mg PO DAILY 10/22/23 10/22/23 History Donepezil HCl [Aricept] 10 mg PO BID 10/22/23 10/22/23 History Escitalopram [Lexapro] 5 mg PO DAILY 10/22/23 10/22/23 History Ezetimibe [Zetia] 10 mg PO DAILY 10/22/23 10/22/23 History Fish Oil/Dha/Epa [Fish Oil 1,200 1 cap PO DAILY 10/22/23 10/22/23 History mg Fish Oil] Glucosamine-Msm 1 tab PO DAILY 10/22/23 10/22/23 History Levothyroxine Sodium [Synthroid] 50 mcg PO DAILY 10/22/23 10/22/23 History Losartan Potassium [Cozaar] 100 mg PO HS 10/22/23 10/22/23 History Magnesium 250 mg PO BID 10/22/23 10/22/23 History Montelukast [Singulair] 10 mg PO HS 10/22/23 10/22/23 History Multivit-Min/FA/Lycopen/Lutein 1 tab PO DAILY 10/22/23 10/22/23 History [Centrum Silver Tablet] Omeprazole [PriLOSEC] 20 mg PO W/SUPPER 10/22/23 10/22/23 History Rosuvastatin [Crestor] 10 mg PO HS 10/22/23 10/22/23 History cycloSPORINE 0.05% OPHTH SOLN 1 drop BOTH EYES BID 10/22/23 10/22/23 History [Restasis] Vancomycin Oral Solution 250 mg PO Q6HR #64 dose 10/26/23 Rx [Vancomycin HCl Oral Soln] metroNIDAZOLE [Flagyl] 500 mg PO TID #42 tab 10/26/23 Rx Allergies Allergy/AdvReac Type Severity Reaction Status Date / Time Sulfa (Sulfonamide AdvReac Nausea & Verified 11/15/23 19:33 Antibiotics) Vomiting & Diarrhea Physical Exam Vitals: Vital Signs Temp Pulse Resp BP Pulse Ox 11/16/23 02:00 98.8 F 77 16 108/60 95 11/15/23 21:56 99.2 F 80 16 110/56 97 11/15/23 19:28 98.9 F 68 18 130/68 97 Intake and Output 11/15/23 11/15/23 11/16/23 14:59 22:59 06:59 Other: Weight 65.771 kg Results CBC & Chem 7: 11/15/23 20:22 11/15/23 20:22 Labs: Abnormal Lab Results - Last 24 Hours (Table) 11/15/23 11/15/23 11/15/23 Range/Units 20:22 20:22 20:22 WBC 13.9 H (3.8-10.6) k/uL Neutrophils # 12.4 H (1.3-7.7) k/uL Lymphocytes # 0.6 L (1.0-4.8) k/uL APTT 21.5 L (22.0-30.0) sec Sodium (137-145) mmol/L BUN (7-17) mg/dL Glucose (74-99) mg/dL Urine Protein Trace H (Negative) Urine Ketones 1+ H (Negative) Ur Leukocyte Esterase Small H (Negative) Urine Bacteria Rare H (None) /hpf Urine Mucus Few H (None) /hpf C. difficile (EIA) Intrp (Negative) 11/15/23 11/15/23 Range/Units 20:22 22:56 WBC (3.8-10.6) k/uL Neutrophils # (1.3-7.7) k/uL Lymphocytes # (1.0-4.8) k/uL APTT (22.0-30.0) sec Sodium 135 L (137-145) mmol/L BUN 24 H (7-17) mg/dL Glucose 129 H (74-99) mg/dL Urine Protein (Negative) Urine Ketones (Negative) Ur Leukocyte Esterase (Negative) Urine Bacteria (None) /hpf Urine Mucus (None) /hpf C. difficile (EIA) Intrp Positive A (Negative)
--- NOTE | 2023-11-17 22:23 | P.PN ---
Subjective Progress Note Date: 11/17/23 Principal diagnosis: Reason for follow-up is recurrent C. difficile colitis Patient is 83-year-old female with a past medical history significant for type 2 diabetes mellitus hypertension dementia hyperlipidemia anxiety recently admitted to hospital and was treated for C. difficile colitis treated with a course of oral vancomycin now presenting back to the hospital with weakness for diarrhea and has been diagnosed with recurrent C. difficile colitis. On today's evaluation that is 11/17/2023, Patient is afebrile this morning and denies any chills, patient mention breathing comfortably and is currently on room air, patient denies any chest pain occasional cough patient denies any abdominal pain still complaining of watery diarrhea no blood or mucus in the stool. No new labs has been obtained today Objective - Vital Signs Vital signs: Vital Signs Temp 98.8 F 11/17/23 07:20 Pulse 80 11/17/23 07:20 Resp 16 11/17/23 07:20 BP 111/60 11/17/23 07:20 Pulse Ox 94 L 11/17/23 07:20 FiO2 Intake & Output 11/16/23 11/17/23 11/17/23 18:59 06:59 18:59 Intake Total 240 Balance 240 Weight 65.771 kg Intake: Oral 240 Other: Voiding Method Toilet # Voids 3 - Exam GENERAL DESCRIPTION: An elderly female lying in bed in no distress RESPIRATORY SYSTEM: Unlabored breathing , decreased breath sounds at bases HEART: S1 S2 regular rate and rhythm , ABDOMEN: Soft , no tenderness EXTREMITIES: No edema feet - Labs CBC & Chem 7: 11/15/23 20:22 11/15/23 20:22 Labs: Microbiology - Last 24 Hours (Table) 11/15/23 21:00 Blood Culture - Preliminary Blood 11/15/23 20:45 Blood Culture - Preliminary Blood Assessment and Plan (1) C. difficile colitis Current Visit: Yes Status: Acute Code(s): A04.72 - ENTEROCOLITIS D/T CLOSTRIDIUM DIFFICILE, NOT SPCF RECUR SNOMED Code(s): 217029637 Plan: 1patient presented to hospital with did have diarrhea in this patient recently diagnosed and treated for C. difficile colitis with oral vancomycin likely re presenting relapse of the infection from regeneration of the spores 2-w patient to continue with Dificid encouraged to increase her probiotic and yogurt intake 3we will add Questran for symptomatic relief Family at bedside questions answered Dictation was produced using [employer] software. please excuse any grammatical, word or spelling errors. Time with Patient: Less than 30
[2023-11-17] MEDS: CHOLESTYRAMINE (WITH SUGAR) 4 GM PACKET PO SCH (23:25)
--- NOTE | 2023-11-18 06:00 | P.PN ---
Subjective Progress Note Date: 11/17/23 HISTORY OF PRESENT ILLNESS: 83-year-old office patient with active medical history of dementia, hypertension, hyperlipidemia, type 2 diabetes, recurrent UTI, mild incontinence, chronic lower back pain who was admitted on October 15, 2023 for syncopal episode with an event happened at home that patient passed out in the bathroom and ended up having slight close head injury with no other major trauma ended up coming to the emergency department medically cleared Vinay Givens was evaluated found to have a temperature of 101 with fluctuation of her blood pressure and found to have consistent diarrhea along with UTI had diarrhea found to be C. difficile abrasion. Patient was started on treatment and management initially her UTI was managed with ceftriaxone after C. difficile was found for her ceftriaxone was stopped completely. For C. difficile management patient was seen infectious disease and agreed to keep her on vancomycin and Flagyl did not see the need to do with Dificid at the time for no failure to treatment. After first few days patient has done very well and her diarrhea started having firm stool. Was discharged home on continue on vancomycin and Flagyl for several weeks. The patient just stopped her treatment recently. Patient apparently had another fall in the bathroom today with syncopal episode was not cleared completely was not witnessed but she fell backward hit her head developed to have slight with pain she also developed to have right hip pain and discomfort from the fall she had apparently episode of uncontrollable defecation with severe diarrhea which most likely what he ate more orthostatic hypotension and developed to cause her to be dizzy and cause her passing out symptoms on follow-up this time as well. End up coming to the emergency department where was seen and evaluated at [facility] Several x-ray CAT scan of the head and neck did not show any acute intracranial hemorrhage no evidence of cervical spine fracture but had multi degenerative disc disease, x-ray of the pelvis came back negative for fracture chest x-ray shows no consolidation, lumbar spine x-ray showed no acute compression fracture or spondylolithiasis. EKG showed normal sinus rhythm with pulse rate 73. Laboratory evaluation showed white blood cell 13,900 left shifted her normal PT INR creatinine 1.02 blood sugar of 129 normal troponin UA is not totally clear and had positive C. difficile. Patient was started on treatment management for C. difficile as well with Flagyl and vancomycin will consult infectious disease patient most likely need to be treated with Dificid. Maybe after done with Dificid we will keep her on vancomycin taper dose likely always done to complete total of 6 weeks. Meanwhile continue hydration continue to watch patient hemodynamic, orthostatic change and for any change might be consistent with her recent injury. 11/17/2023: Patient diarrhea is much better at this point, she is still have slight confusion but has improved compared to yesterday, orthostatic change has improved as well with a blood pressure is better. Lab value urgently with white blood cell 13,900 repeat CBC tomorrow. Patient kidney function still holding well at this point. Her activity and mobility still limited to bedrest at this point patient's family are staying with her the whole time. Blood oxygen level has been good and 96% on room air. Patient still have confusion on and off. With the failure to her oral vancomycin and Flagyl infectious disease has initiated Dificid treatment at this point prescription was made and sent to the pharmacy to see patient's coverage for it when ready to send her home. Meanwhile we will titrate hydration and oral intake as much as possible. REVIEW OF SYSTEMS: CONSTITUTIONAL: Well-developed no acute respiratory distress. EYES: No icterus sclerae, no conjunctivitis. EARS, NOSE, MOUTH, THROAT, and FACE: No sore throat, lymphadenopathy, carotid bruits or deformity. RESPIRATORY: No SOB cough or wheezes. CARDIOVASCULAR: No CP, Palpitation, PND, Orthopnea, or angina. GASTROINTESTINAL: No Abd pain, Nausea or vomiting, no Diarrhea or constipation, No GI Bleed, no distention or masses. GENITOURINARY: Negative for Hematuria or UTI, no kidney stones. INTEGUMENT/BREAST: Negative for any muscular injury with mild osteoarthritis.. HEMATOLOGIC/LYMPHATIC: Negative for bleed or purpura. MUSCULOSKELTAL: Negative for Myalgia or arthralgia. NEURLOGICAL: No LOC, Sz or syncope, blurred vision dizziness or abnormality.. BEHAVIORAL/PSYCH: Negative. ENDOCRINE: Negative. PHYSICAL EXAMINATION: General Appearance: Alert, cooperative, no distress, appears stated age. Neck HEENT: Supple, no lymphadenopathy, no thyroid enlargement, no carotid bruits. Lungs: Clear to auscultation without crackles or wheezes no rhonchi, no deformity. Chest Wall: Chest wall normal expansion with deep inspiration no tenderness and no deformity was found on exam, no costochondral pain or discomfort. Heart: Regular rate and rhythm, S1, S2 normal, no murmur, rub or gallop. Back: Symmetric, no curvature, ROM normal, no CVA tenderness. Abdomen: Soft, non-tender, bowel sounds active all four quadrants, no masses, no organomegaly. Extremities: Extremities normal, atraumatic, no cyanosis or edema. Pulses: 2+ and symmetric. Skin: Skin color, texture, tugor normal, no rashes or lesions. Neurologic: Alert oriented x3 cranial nerves II through XII intact, no motor deficit, no abnormal balance or gait. ASSESSMENT AND PLAN: _Recurrent C. difficile infection: Switch treatment at this point to Dificid in stead of Flagyl and vancomycin will see what infectious disease recommendation if we have to do anymore prophylaxis afterwards specially this is a second episode short period of time. Continue hydration continue yogurt and probiotic intake as well. _Syncope: Again most likely from the severity of her dehydration and orthostatic hypotension which has improved at this point we will have patient ambulate with help. _Orthostatic hypotension: Continue hydration and watch symptoms carefully continue IV fluid for now. Has improved significantly and the blood pressure is holding well on its own with no significant drop when standing up. _Reactive airway/asthma: Has been on Ventolin and Pulmicort doing very well. _Dementia: Alzheimer's type, remain on donepezil 10 mg twice a day seems to do w ell with it. _Hypertension: Patient was placed back on losartan 100 mg daily made medication need to be adjusted down to 50 if blood pressure is low. _Change in mental status with mild confusion, especially with her history of dementia with recurrent infection and hypotension and dehydration made it much worse but is getting back close to her baseline. _Hyperlipidemia: Remain on rosuvastatin and Zetia. Resume medication _Mild iron deficiency anemia: Continue multivitamin and iron supplement. _GERD: Still on omeprazole _Allergy: Remain on montelukast along with Zyrtec. _GI prophylaxis: Patient be continued on omeprazole. Discussion: Patient continue on IV hydration at least for another 24 hours was started on Dificid still having quite a bit diarrhea today infectious disease will be seen patient for further recommendation, patient's family had many questions all were answered today and still their target is to return patient home with help if possible. Objective - Vital Signs Vital signs: Vital Signs Temp 97.8 F 11/17/23 02:24 Pulse 65 11/17/23 02:24 Resp 15 11/17/23 02:24 BP 154/74 11/17/23 02:24 Pulse Ox 97 11/17/23 02:24 FiO2 Intake & Output 11/16/23 11/16/23 11/17/23 06:59 18:59 06:59 Weight 65.771 kg 65.771 kg Other: # Voids 1 - Labs CBC & Chem 7: 11/15/23 20:22 11/15/23 20:22 Labs: Microbiology - Last 24 Hours (Table) 11/15/23 21:00 Blood Culture - Preliminary Blood 11/15/23 20:45 Blood Culture - Preliminary Blood
[2023-11-18 10:33] LABS: Basophils # (A) 0.01 X 10*3/uL (0.00-0.10); Basophils % (A) 0.2 %; Eosinophils % (A) 6.2 %; HCT 31.7 % (37.2-46.3); Lymphocytes # (A) 1.06 X 10*3/uL (0.90-5.00); Lymphocytes % (A) 16.5 %; MCH 28.8 pg (27.0-32.0); MCHC 31.5 g/dL (32.0-37.0); MCV 91.4 FL (80.0-97.0); Mean Platelet Volume 9.3 FL (9.5-12.2); Monocytes # (A) 0.94 X 10*3/uL (0.20-1.00); Monocytes % (A) 14.6 %; NRBC Per 100 WBC 0 X 10*3/uL (0.00-0.01); Neutrophils % (A) 62.2 %; Platelet Count 169 X 10*3/uL (140-440); RBC 3.47 X 10*6/uL (4.10-5.20); RDW 15.8 % (11.5-14.5); WBC 6.43 X 10*3/uL (4.50-10.00)
[2023-11-18 10:36] LABS: ALT 16 U/L (8-44); AST 24 U/L (13-35); Albumin 3.2 g/dL (3.8-4.9); Albumin/Globulin Ratio 1.68 Ratio (1.60-3.17); Alkaline Phosphatase 51 U/L (41-126); BUN/Creat Ratio 13.56 Ratio (12.00-20.00); Blood Urea Nitrogen 12.2 mg/dL (9.0-27.0); Calcium 8.6 mg/dL (8.7-10.3); Carbon Dioxide 23.5 mmol/L (21.6-31.8); Chloride 110 mmol/L (96-109); Globulin 1.9 g/dL (1.6-3.3); Glucose 97 mg/dL (70-110); Potassium 3.8 mmol/L (3.5-5.5); Sodium 143 mmol/L (135-145); Total Bilirubin <0.2 mg/dL (0.3-1.2); Total Protein 5.1 g/dL (6.2-8.2)
--- NOTE | 2023-11-18 15:16 | P.PN ---
Subjective Progress Note Date: 11/18/23 Principal diagnosis: Reason for follow-up is recurrent C. difficile colitis Patient is 83-year-old female with a past medical history significant for type 2 diabetes mellitus hypertension dementia hyperlipidemia anxiety recently admitted to hospital and was treated for C. difficile colitis treated with a course of oral vancomycin now presenting back to the hospital with weakness for diarrhea and has been diagnosed with recurrent C. difficile colitis. On today's evaluation that is 11/18/2023,the patient denies any fever or any chills, patient is breathing comfortably on room air, the patient denies chest pain shortness of breath and no significant cough, patient denies abdominal pain, no nausea vomiting mentioned that he has slightly slowed down still having liquidy stool. Patient white count 6.43, creatinine 0.9 Objective - Vital Signs Vital signs: Vital Signs Temp 98.1 F 11/18/23 07:00 Pulse 56 L 11/18/23 07:00 Resp 15 11/18/23 07:00 BP 129/66 11/18/23 07:00 Pulse Ox 97 11/18/23 07:00 FiO2 Intake & Output 11/17/23 11/18/23 11/18/23 18:59 06:59 18:59 Intake Total 480 598 Balance 480 598 Intake: Oral 480 598 Other: Voiding Method Toilet Toilet # Voids 4 2 - Exam GENERAL DESCRIPTION: An elderly female lying in bed in no distress RESPIRATORY SYSTEM: Unlabored breathing , decreased breath sounds at bases HEART: S1 S2 regular rate and rhythm , ABDOMEN: Soft , no tenderness EXTREMITIES: No edema feet - Labs CBC & Chem 7: 11/18/23 07:15 11/18/23 07:15 Labs: Abnormal Lab Results - Last 24 Hours (Table) 11/18/23 11/18/23 Range/Units 07:15 07:15 RBC 3.47 L (4.10-5.20) X 10*6/uL Hgb 10.0 L (12.0-15.0) g/dL Hct 31.7 L (37.2-46.3) % MCHC 31.5 L (32.0-37.0) g/dL RDW 15.8 H (11.5-14.5) % MPV 9.3 L (9.5-12.2) FL Eosinophils # 0.40 H (0.04-0.35) X 10*3/uL Chloride 110 H (96-109) mmol/L Calcium 8.6 L (8.7-10.3) mg/dL Total Bilirubin <0.2 L (0.3-1.2) mg/dL Total Protein 5.1 L (6.2-8.2) g/dL Albumin 3.2 L (3.8-4.9) g/dL Microbiology - Last 24 Hours (Table) 11/15/23 21:00 Blood Culture - Preliminary Blood 11/15/23 20:45 Blood Culture - Preliminary Blood Assessment and Plan (1) C. difficile colitis Current Visit: Yes Status: Acute Code(s): A04.72 - ENTEROCOLITIS D/T CLOSTRI DIUM DIFFICILE, NOT SPCF RECUR SNOMED Code(s): 613466644 Plan: 1patient presented to hospital with did have diarrhea in this patient recently diagnosed and treated for C. difficile colitis with oral vancomycin likely representing relapse of the infection from regeneration of the spores 2-patient to continue with Dificid along with Questran for symptomatic relief 3-discharge repair has been discussed in detail with the patient and the family Dificid Al is a issue we can use a prolonged tapering course of oral vancomycin, versus oral Dificid on discharge however even with oral deficit there is no guarantee she would not get another episode of C. difficile this was explained to the patient and the family in layman terms Dictation was produced using [employer] dictation software. please excuse any grammatical, word or spelling errors. Time with Patient: Less than 30
[2023-11-19 01:29] VITALS: RESP 16
--- NOTE | 2023-11-19 06:26 | P.PN ---
Subjective Progress Note Date: 11/18/23 HISTORY OF PRESENT ILLNESS: 83-year-old office patient with active medical history of dementia, hypertension, hyperlipidemia, type 2 diabetes, recurrent UTI, mild incontinence, chronic lower back pain who was admitted on October 15, 2023 for syncopal episode with an event happened at home that patient passed out in the bathroom and ended up having slight close head injury with no other major trauma ended up coming to the emergency department medically cleared Vinay Givens was evaluated found to have a temperature of 101 with fluctuation of her blood pressure and found to have consistent diarrhea along with UTI had diarrhea found to be C. difficile abrasion. Patient was started on treatment and management initially her UTI was managed with ceftriaxone after C. difficile was found for her ceftriaxone was stopped completely. For C. difficile management patient was seen infectious disease and agreed to keep her on vancomycin and Flagyl did not see the need to do with Dificid at the time for no failure to treatment. After first few days patient has done very well and her diarrhea started having firm stool. Was discharged home on continue on vancomycin and Flagyl for several weeks. The patient just stopped her treatment recently. Patient apparently had another fall in the bathroom today with syncopal episode was not cleared completely was not witnessed but she fell backward hit her head developed to have slight with pain she also developed to have right hip pain and discomfort from the fall she had apparently episode of uncontrollable defecation with severe diarrhea which most likely what he ate more orthostatic hypotension and developed to cause her to be dizzy and cause her passing out symptoms on follow-up this time as well. End up coming to the emergency department where was seen and evaluated at [facility] Several x-ray CAT scan of the head and neck did not show any acute intracranial hemorrhage no evidence of cervical spine fracture but had multi degenerative disc disease, x-ray of the pelvis came back negative for fracture chest x-ray shows no consolidation, lumbar spine x-ray showed no acute compression fracture or spondylolithiasis. EKG showed normal sinus rhythm with pulse rate 73. Laboratory evaluation showed white blood cell 13,900 left shifted her normal PT INR creatinine 1.02 blood sugar of 129 normal troponin UA is not totally clear and had positive C. difficile. Patient was started on treatment management for C. difficile as well with Flagyl and vancomycin will consult infectious disease patient most likely need to be treated with Dificid. Maybe after done with Dificid we will keep her on vancomycin taper dose likely always done to complete total of 6 weeks. Meanwhile continue hydration continue to watch patient hemodynamic, orthostatic change and for any change might be consistent with her recent injury. 11/17/2023: Patient diarrhea is much better at this point, she is still have slight confusion but has improved compared to yesterday, orthostatic change has improved as well with a blood pressure is better. Lab value urgently with white blood cell 13,900 repeat CBC tomorrow. Patient kidney function still holding well at this point. Her activity and mobility still limited to bedrest at this point patient's family are staying with her the whole time. Blood oxygen level has been good and 96% on room air. Patient still have confusion on and off. With the failure to her oral vancomycin and Flagyl infectious disease has initiated Dificid treatment at this point prescription was made and sent to the pharmacy to see patient's coverage for it when ready to send her home. Meanwhile we will titrate hydration and oral intake as much as possible. 11/18/2023: She is doing much better, infectious disease had to use the Questran to help her out. Still stable medically her diarrhea is much better very less frequent, she had quite good response to Dificid at this point which will be going home on it along with Questran twice daily. There were problems with the breen of Dificid along with the preauthorization, the breen apparently will be about $1800 to complete full course. structural iron worker still working on some approval with insurance company which I hope will be reso lved by tomorrow. The plan is with the patient to finalize a course of Dificid to complete total of 10 days followed by a longer tapering dose of vancomycin orally 250 mg 3 times a day for 2 weeks then twice a day for 2 weeks then once a day for 2 weeks before we quit. In the meanwhile continue Questran and continue probiotic along. Apparently family are able to manage patient at home with extra help mild rely on visiting nurse and may be home physical therapy as well. The plan is set for now with 2 have patient discharge probably tomorrow. REVIEW OF SYSTEMS: CONSTITUTIONAL: Well-developed no acute respiratory distress. EYES: No icterus sclerae, no conjunctivitis. EARS, NOSE, MOUTH, THROAT, and FACE: No sore throat, lymphadenopathy, carotid bruits or deformity. RESPIRATORY: No SOB cough or wheezes. CARDIOVASCULAR: No CP, Palpitation, PND, Orthopnea, or angina. GASTROINTESTINAL: No Abd pain, Nausea or vomiting, no Diarrhea or constipation, No GI Bleed, no distention or masses. GENITOURINARY: Negative for Hematuria or UTI, no kidney stones. INTEGUMENT/BREAST: Negative for any muscular injury with mild osteoarthritis.. HEMATOLOGIC/LYMPHATIC: Negative for bleed or purpura. MUSCULOSKELTAL: Negative for Myalgia or arthralgia. NEURLOGICAL: No LOC, Sz or syncope, blurred vision dizziness or abnormality.. BEHAVIORAL/PSYCH: Negative. ENDOCRINE: Negative. PHYSICAL EXAMINATION: General Appearance: Alert, cooperative, no distress, appears stated age. Neck HEENT: Supple, no lymphadenopathy, no thyroid enlargement, no carotid bruits. Lungs: Clear to auscultation without crackles or wheezes no rhonchi, no deformity. Chest Wall: Chest wall normal expansion with deep inspiration no tenderness and no deformity was found on exam, no costochondral pain or discomfort. Heart: Regular rate and rhythm, S1, S2 normal, no murmur, rub or gallop. Back: Symmetric, no curvature, ROM normal, no CVA tenderness. Abdomen: Soft, non-tender, bowel sounds active all four quadrants, no masses, no organomegaly. Extremities: Extremities normal, atraumatic, no cyanosis or edema. Pulses: 2+ and symmetric. Skin: Skin color, texture, tugor normal, no rashes or lesions. Neurologic: Alert oriented x3 cranial nerves II through XII intact, no motor deficit, no abnormal balance or gait. ASSESSMENT AND PLAN: _Recurrent C. difficile infection: She is doing well on Dificid and had to start Questran within the same time. Breen of Dificid as an outpatient has been a problem trying to work around it for possible discharge tomorrow. _Syncope: Again most likely from the severity of her dehydration and orthostatic hypotension which has improved at this point we will have patient ambulate with help. He is very stable not having any symptoms lately continue current plan and management. _Orthostatic hypotension: Resolved on orthostatic hypotension no need to continue IV hydration at this point to continue oral intake. _Reactive airway/asthma: Has been on Ventolin and Pulmicort doing very well. _Dementia: Alzheimer's type, remain on donepezil 10 mg twice a day seems to do well with it. _Hypertension: Patient was placed back on losartan 100 mg daily made medication need to be adjusted down to 50 if blood pressure is low. Resume medication. _Change in mental status with mild confusion, symptoms were related to severe dehydration, diarrhea, and recurrent lightheadedness from her hypertension. Th at has been clear patient is back to her baseline. _Hyperlipidemia: Remain on rosuvastatin and Zetia. Resume medication _Mild iron deficiency anemia: Continue multivitamin and iron supplement. _GERD: Still on omeprazole _Allergy: Remain on montelukast along with Zyrtec. _GI prophylaxis: Patient be continued on omeprazole. Discussion: Continue Dificid, social and human services assistant trying to preauthorize prescription and if all finalized patient hopefully will be discharged tomorrow with Dificid for total of 7 more days to continue Questran as well. Following the treatment patient will be on vancomycin orally 250 mg 3 times a day for 2 weeks then twice a day for 2 weeks then once a day for 2 weeks. Patient will be follow-up in the office within few days. Objective - Vital Signs Vital signs: Vital Signs Temp 98.8 F 11/18/23 02:11 Pulse 65 11/18/23 02:11 Resp 16 11/18/23 02:11 BP 132/76 11/18/23 02:11 Pulse Ox 94 L 11/18/23 02:11 FiO2 Intake & Output 11/17/23 11/17/23 11/18/23 06:59 18:59 06:59 Intake Total 480 Balance 480 Intake: Oral 480 Other: Voiding Method Toilet Toilet # Voids 3 4 2 - Labs CBC & Chem 7: 11/18/23 07:15 11/18/23 07:15 Labs: Microbiology - Last 24 Hours (Table) 11/15/23 21:00 Blood Culture - Preliminary Blood 11/15/23 20:45 Blood Culture - Preliminary Blood
[2023-11-19 07:55] VITALS: BP 111/66; PULSE 64; TEMP 97
== END 2023-11-19 11:52 | disposition home health service (06) ==
LOC: EC 19:24 → 6NMEDSUR 11-16 00:33
PROVIDERS: ADMIT Internal Medicine Geriatric Medicine; ATTEND Internal Medicine Geriatric Medicine
DX: A04.71 Enterocolitis due to Clostridium difficile, recurrent (principal); E11.9 Type 2 diabetes mellitus without complications; I10 Essential (primary) hypertension; F03.90 Unspecified dementia, unspecified severity, without behavioral disturbance, psychotic disturbance, mood disturbance, and anxiety; E78.5 Hyperlipidemia, unspecified; I95.9 Hypotension, unspecified; J45.909 Unspecified asthma, uncomplicated; D50.9 Iron deficiency anemia, unspecified; K21.9 Gastro-esophageal reflux disease without esophagitis
CPT/HCPCS: 96361; 96365; 96367 ×2; 99285; 36415; 94640 ×5; 93005; 97161; 80053 ×2; 83605; 83735; 84484; 85025 ×2; 85610; 85730; 81001; 87040; 87324; 72100; 72170; 71046; 72125; 70450; G0378 ×4; J0131; J1885; J1836

== ENCOUNTER 2024-04-29 09:16 | Emergency (ER) | payer MEDICARE ==
--- NOTE | 2024-04-29 09:52 | ED ---
General Adult HPI - General Chief complaint: Upper Respiratory Infection Stated complaint: Congestion Time Seen by Provider: 04/29/24 09:30 Source: patient, family, RN notes reviewed Mode of arrival: ambulatory Limitations: no limitations - History of Present Illness Initial comments: Patient is an 83-year-old female present to the emergency department with concerns not feeling well. Onset of symptoms was yesterday. Patient has had cough and congestion in her chest and upper respiratory. Patient oxygen was low, 90 or even in the 80s last night by family. Patient has been fatigued and hardly got out of bed yesterday, decreased oral intake since yesterday also. Patient has chronic memory problems, unchanged mentation. Patient did have temperature yesterday up to 101. - Related Data Home Medications Medication Instructions Recorded Confirmed Albuterol Nebulized [Ventolin 2.5 mg INHALATION RT-QID PRN 10/22/23 11/16/23 Nebulized] Albuterol Sulfate [Ventolin HFA] 1 - 2 puff INHALATION RT-Q6H PRN 10/22/23 11/16/23 Ascorbic Acid [Vitamin C] 500 mg PO DAILY 10/22/23 11/16/23 Aspirin 81 mg PO HS 10/22/23 11/16/23 Budesonide-Formot 160-4.5 Mcg 2 puff INHALATION RT-BID 10/22/23 11/16/23 [Symbicort 160-4.5 Mcg Inhaler] Cetirizine HCl [Zyrtec] 10 mg PO DAILY 10/22/23 11/16/23 Cholecalciferol [Vitamin D3 (25 50 mcg PO DAILY 10/22/23 11/16/23 Mcg = 1000 Iu)] Co Q-10 100mg 100 mg PO DAILY 10/22/23 11/16/23 Donepezil HCl [Aricept] 10 mg PO BID 10/22/23 11/16/23 Escitalopram [Lexapro] 5 mg PO DAILY 10/22/23 11/16/23 Ezetimibe [Zetia] 10 mg PO DAILY 10/22/23 11/16/23 Fish Oil/Dha/Epa [Fish Oil 1,200 1 cap PO DAILY 10/22/23 11/16/23 mg Fish Oil] Glucosamine-Msm 1 tab PO DAILY 10/22/23 11/16/23 Levothyroxine Sodium [Synthroid] 50 mcg PO DAILY 10/22/23 11/16/23 Losartan Potassium [Cozaar] 100 mg PO HS 10/22/23 11/16/23 Magnesium 250 mg PO BID 10/22/23 11/16/23 Montelukast [Singulair] 10 mg PO HS 10/22/23 11/16/23 Multivit-Min/FA/Lycopen/Lutein 1 tab PO DAILY 10/22/23 11/16/23 [Centrum Silver Tablet] Omeprazole [PriLOSEC] 20 mg PO W/SUPPER 10/22/23 11/16/23 Rosuvastatin [Crestor] 10 mg PO HS 10/22/23 11/16/23 cycloSPORINE 0.05% OPHTH SOLN 1 drop BOTH EYES BID 10/22/23 11/16/23 [Restasis] Previous Rx's Medication Instructions Recorded Fidaxomicin [Dificid] 200 mg PO BID #20 tab 11/17/23 Cholestyramine (with Sugar) 4 gm PO BID@1100,1800 #60 packet 11/19/23 [Questran Packet] Vancomycin HCl [Vancocin HCl] 250 mg PO AC-TID #84 cap 11/19/23 Nirmatrelvir/Ritonavir [Paxlovid 3 each PO BID #30 each 04/29/24 300-100 mg Dose Pack] Allergies Allergy/AdvReac Type Severity Reaction Status Date / Time Sulfa (Sulfonamide AdvReac Nausea & Verified 04/29/24 09:22 Antibiotics) Vomiting & Diarrhea Review of Systems ROS Statement: Those systems with pertinent positive or pertinent negative responses have been documented in the HPI. ROS Other: All systems not noted in ROS Statement are negative. Constitutional: Reports: as per HPI, fever Eyes: Denies: eye pain ENT: Denies: ear pain Respiratory: Reports: as per HPI, cough Cardiovascular: Denies: chest pain Endocrine: Reports: fatigue Gastrointestinal: Denies: abdominal pain Neurological: Denies: weakness Past Medical History Past Medical History: Asthma, Dementia, GERD/Reflux, Hyperlipidemia, Hypertension, Thyroid Disorder History of Any Multi-Drug Resistant Organisms: None Reported Past Surgical History: No Surgical Hx Reported Past Anesthesia/Blood Transfusion Reactions: No Reported Reaction Past Psychological History: Anxiety Smoking Status: Never smoker Past Alcohol Use History: None Reported Past Drug Use History: None Reported General Exam Limitations: no limitations General appearance: alert, in no apparent distress Head exam: Present: normocephalic Eye exam: Present: normal appearance Respiratory exam: Present: normal lung sounds bilaterally Cardiovascular Exam: Present: regular rate, normal rhythm GI/Abdominal exam: Present: soft. Absent: tenderness Extremities exam: Present: normal inspection Neurological exam: Present: alert. Absent: motor sensory deficit Psychiatric exam: Present: normal affect, normal mood Skin exam: Present: normal color Course Vital Signs 04/29/24 04/29/24 04/29/24 09:22 09:37 10:32 Temperature 98.3 F Pulse Rate 82 82 78 Respiratory 18 16 18 Rate Blood Pressure 122/59 137/67 134/67 O2 Sat by Pulse 97 96 97 Oximetry - Reevaluation(s) Reevaluation #1: 04/29/24 10:34 EKG interpreted by myself shows sinus rhythm with a rate of 75. [place] 132. QRS 92. QT 338. QTc 336. Normal axis. Normal QRS. Nonspecific T waves. 04/29/24 10:56 Medical Decision Making - Medical Decision Making Was pt. sent in by a medical professional or institution (, PA, COLLATOR OPERATOR, urgent care, hospital, or snf...) When possible be specific @ -No Did you speak to anyone other than the patient for history (EMS, parent, family, police, friend...)? What history was obtained from this source @ -Daughter is present helps provide history including symptoms and onset Did you review nursing and triage notes (agree or disagree)? Why? @ -I reviewed and agree with nursing and triage notes Were old charts reviewed (outside hosp., previous admission, EMS record, old EKG, old radiological studies, urgent care reports/EKG's, snf records)? Report findings @ -No old charts were reviewed Differential Diagnosis (chest pain, altered mental status, abdominal pain women, abdominal pain men, vaginal bleeding, weakness, fever, dyspnea, syncope, headache, dizziness, GI bleed, back pain, seizure, CVA, palpatations, mental health, musculoskeletal)? @ -Differential Dyspnea: Coronary syndrome, arrhythmia, tamponade, asthma, COPD, pulmonary embolism, pneumonia, pneumothorax, pulmonary effusion, anaphylaxis, diabetic ketoacidosis, flailed chest, pulmonary contusion, diaphragmatic rupture, anemia, neuromus cular, this is not meant to be an all-inclusive list. EKG interpreted by me (3pts min.). @ -As above X-rays interpreted by me (1pt min.). @ -Chest x-ray does not reveal acute abnormality CT interpreted by me (1pt min.). @ -None done U/S interpreted by me (1pt. min.). @ -None done What testing was considered but not performed or refused? (CT, X-rays, U/S, labs)? Why? @ -None What meds were considered but not given or refused? Why? @ -None Did you discuss the management of the patient with other professionals (professionals i.e. DrLion, PA, COLLATOR OPERATOR, lab, RT, psych nurse, psych social worker, machine boss, t eacher, guest relations officer, home health care case manager)? Give summary @ -No Was smoking cessation discussed for >3mins.? @ -No Was critical care preformed (if so, how long)? @ -No Were there social determinants of health that impacted care today? How? (Homelessness, low income, unemployed, alcoholism, drug addiction, transportation, low edu. Level, literacy, decrease access to med. care, senior living, rehab)? @ -No Was there de-escalation of care discussed even if they declined (Discuss DNR or withdrawal of care, Hospice)? DNR status @ -No What co-morbidities impacted this encounter? (DM, HTN, Smoking, COPD, CAD, Cancer, CVA, ARF, Chemo, Hep., AIDS, mental health diagnosis, sleep apnea, morbid obesity)? @ -None Was patient admitted / discharged? Hospital course, mention meds given and route, prescriptions, significant lab abnormalities, going to OR and other pertinent info. @ -Patient presents with upper respiratory and shortness of breath. COVID-19 testing positive otherwise evaluation unremarkable. Pulse ox has been stable above 94% on room air. Patient will be discharged with prescription for Meredith lovid. Patient and family reevaluated and updated. They do want to have Paxlovid. Medication contraindications reviewed. Undiagnosed new problem with uncertain prognosis? @ -No Drug Therapy requiring intensive monitoring for toxicity (Heparin, Nitro, Insulin, Cardizem)? @ -No Were any procedures done? @ -No Diagnosis/symptom? @ -COVID-19 infection Acute, or Chronic, or Acute on Chronic? @ -Acute Uncomplicated (without systemic symptoms) or Complicated (systemic symptoms)? @ -Default Side effects of treatment? @ -No Exacerbation, Progression, or Severe Exacerbation? @ -No Poses a threat to life or bodily function? How? (Chest pain, USA, PA, pneumonia, PE, COPD, DKA, ARF, appy, cholecystitis, CVA, Diverticulitis, Homicidal, Suicidal, threat to staff... and all critical care pts) @ -Threat to pulmonary function and multiple other organs - Lab Data Result diagrams: 04/29/24 10:02 04/29/24 10:02 Lab Results 04/29/24 04/29/24 04/29/24 Range/Units 10:02 10:02 10:02 WBC 10.1 (3.8-10.6) k/uL RBC 4.28 (3.80-5.40) m/uL Hgb 12.0 (11.4-16.0) gm/dL Hct 37.4 (34.0-46.0) % MCV 87.5 (80.0-100.0) fL MCH 28.0 (25.0-35.0) pg MCHC 32.0 (31.0-37.0) g/dL RDW 15.6 H (11.5-15.5) % Plt Count 172 (150-450) k/uL MPV 6.6 Neutrophils % 72 % Lymphocytes % 12 % Monocytes % 11 % Eosinophils % 2 % Basophils % 0 % Neutrophils # 7.3 (1.3-7.7) k/uL Lymphocytes # 1.3 (1.0-4.8) k/uL Monocytes # 1.1 H (0-1.0) k/uL Eosinophils # 0.2 (0-0.7) k/uL Basophils # 0.0 (0-0.2) k/uL PT 10.5 (10.0-12.5) sec INR 1.0 (<1.2) APTT 25.3 (22.0-30.0) sec Sodium 136 L (137-145) mmol/L Potassium 3.9 (3.5-5.1) mmol/L Chloride 106 (98-107) mmol/L Carbon Dioxide 22 (22-30) mmol/L Anion Gap 8 mmol/L BUN 22 H (7-17) mg/dL Creatinine 1.02 (0.52-1.04) mg/dL Est GFR (CKD-EPI)AfAm 60 (>60 ml/min/1.73 sqM) Est GFR (CKD-EPI)NonAf 52 (>60 ml/min/1.73 sqM) Glucose 102 H (74-99) mg/dL Plasma Lactic Acid Orlin (0.7-2.0) mmol/L Calcium 9.0 (8.4-10.2) mg/dL Magnesium 1.9 (1.6-2.3) mg/dL Total Bilirubin 0.5 (0.2-1.3) mg/dL AST 29 (14-36) U/L ALT 18 (4-34) U/L Alkaline Phosphatase 64 (38-126) U/L NT-Pro-B Natriuret Pep 149 pg/mL Total Protein 6.2 L (6.3-8.2) g/dL Albumin 3.7 (3.5-5.0) g/dL Urine Color Urine Appearance (Clear) Urine pH (5.0-8.0) Ur Specific [place] (1.001-1.035) Urine Protein (Negative) Urine Glucose (UA) (Negative) Urine Ketones (Negative) Urine Blood (Negative) Urine Nitrite (Negative) Urine Bilirubin (Negative) Urine Urobilinogen (<2.0) mg/dL Ur Leukocyte Esterase (Negative) Urine RBC (0-5) /hpf Urine WBC (0-5) /hpf Ur Squamous Epith Cells (0-4) /hpf Urine Bacteria (None) /hpf Urine Mucus (None) /hpf Influenza Type A (PCR) (Not Detectd) Influenza Type B (PCR) (Not Detectd) RSV (PCR) (Not Detectd) SARS-CoV-2 (PCR) (Not Detectd) 04/29/24 04/29/24 04/29/24 Range/Units 10:02 10:16 10:28 WBC (3.8-10.6) k/uL RBC (3.80-5.40) m/uL Hgb (11.4-16.0) gm/dL Hct (34.0-46.0) % MCV (80.0-100.0) fL MCH (25.0-35.0) pg MCHC (31.0-37.0) g/dL RDW (11.5-15.5) % Plt Count (150-450) k/uL MPV Neutrophils % % Lymphocytes % % Monocytes % % Eosinophils % % Basophils % % Neutrophils # (1.3-7.7) k/uL Lymphocytes # (1.0-4.8) k/uL Monocytes # (0-1.0) k/uL Eosinophils # (0-0.7) k/uL Basophils # (0-0.2) k/uL PT (10.0-12.5) sec INR (<1.2) APTT (22.0-30.0) sec Sodium (137-145) mmol/L Potassium (3.5-5.1) mmol/L Chloride (98-107) mmol/L Carbon Dioxide (22-30) mmol/L Anion Gap mmol/L BUN (7-17) mg/dL Creatinine (0.52-1.04) mg/dL Est GFR (CKD-EPI)AfAm (>60 ml/min/1.73 sqM) Est GFR (CKD-EPI)NonAf (>60 ml/min/1.73 sqM) Glucose (74-99) mg/dL Plasma Lactic Acid Orlin 1.0 (0.7-2.0) mmol/L Calcium (8.4-10.2) mg/dL Magnesium (1.6-2.3) mg/dL Total Bilirubin (0.2-1.3) mg/dL AST (14-36) U/L ALT (4-34) U/L Alkaline Phosphatase (38-126) U/L NT-Pro-B Natriuret Pep pg/mL Total Protein (6.3-8.2) g/dL Albumin (3.5-5.0) g/dL Urine Color Light Yellow Urine Appearance Clear (Clear) Urine pH 5.5 (5.0-8.0) Ur Specific [place] 1.017 (1.001-1.035) Urine Protein Negative (Negative) Urine Glucose (UA) Negative (Negative) Urine Ketones 1+ H (Negative) Urine Blood Negative (Negative) Urine Nitrite Negative (Negative) Urine Bilirubin Negative (Negative) Urine Urobilinogen <2.0 (<2.0) mg/dL Ur Leukocyte Esterase Large H (Negative) Urine RBC 3 (0-5) /hpf Urine WBC 6 H (0-5) /hpf Ur Squamous Epith Cells 1 (0-4) /hpf Urine Bacteria Rare H (None) /hpf Urine Mucus Rare H (None) /hpf Influenza Type A (PCR) Not Detected (Not Detectd) Influenza Type B (PCR) Not Detected (Not Detectd) RSV (PCR) Not Detected (Not Detectd) SARS-CoV-2 (PCR) Detected A (Not Detectd) Disposition Clinical Impression: COVID-19 virus infection Disposition: HOME SELF-CARE Condition: Stable Instructions (If sedation given, give patient instructions): COVID-19 (Coronavirus Disease 2019) (ED) Additional Instructions: Prescription sent to pharmacy. Please have pharmacist review this with all medications that you take. Return for low oxygen, difficulty breathing, not tolerating oral intake, worsening symptoms or any other concerns. [id number] Tylenol as needed. [id number] vitamin C, vitamin D, and zinc. Prescriptions: Nirmatrelvir/Ritonavir [Paxlovid 300-100 mg Dose Pack] 3 each PO BID #30 each Is patient prescribed a controlled substance at d/c from ED?: No Referrals: Juan Shultz MD [Primary Care Provider] - 1-2 days Time of Disposition: 11:20
[2024-04-29 10:17] LABS: Basophils % (A) 0 %; Eosinophils # (A) 0.2 k/uL (0-0.7); Eosinophils % (A) 2 %; HCT 37.4 % (34.0-46.0); Lymphocytes # (A) 1.3 k/uL (1.0-4.8); Lymphocytes % (A) 12 %; MCV 87.5 fL (80.0-100.0); Mean Platelet Volume 6.6; Monocytes # (A) 1.1 k/uL (0-1.0); Monocytes % (A) 11 %; Neutrophils # (A) 7.3 k/uL (1.3-7.7); Neutrophils % (A) 72 %; Platelet Count 172 k/uL (150-450); RBC 4.28 m/uL (3.80-5.40); RDW 15.6 % (11.5-15.5); WBC 10.1 k/uL (3.8-10.6)
--- NOTE | 2024-04-29 10:23 | XR ---
2 view chest HISTORY: Difficulty breathing COMPARISON: 11/15/2023 TECHNIQUE: PA and lateral views chest obtained. FINDINGS: There is a small focal linear opacity in left lung base consistent with a small focal scar or atelect asis which was not present previously. Otherwise the lungs are clear.. There is no pleural effusion, pleural thickening or pneumothorax. The heart, pulmonary vasculature, mediastinum and ramo are within normal limits. The osseous structures and soft tissues of the thorax are intact. IMPRESSION: Minimal atelectasis versus focal scar in the left lung base. No acute cardiopulmonary disease. [facility], , 04/29/2024 10:21 AM
[2024-04-29 10:28] LABS: ALT 18 U/L (4-34); AST 29 U/L (14-36); African American GFR (CKD) 60 (>60 ml/min/1.73 sqM); Albumin 3.7 g/dL (3.5-5.0); Alkaline Phosphatase 64 U/L (38-126); Anion Gap 8 mmol/L; Blood Urea Nitrogen 22 mg/dL (7-17); Carbon Dioxide 22 mmol/L (22-30); Chloride 106 mmol/L (98-107); Glucose 102 mg/dL (74-99); Magnesium 1.9 mg/dL (1.6-2.3); Non-African American GFR(CKD) 52 (>60 ml/min/1.73 sqM); Potassium 3.9 mmol/L (3.5-5.1); Sodium 136 mmol/L (137-145); Total Bilirubin 0.5 mg/dL (0.2-1.3); Total Protein 6.2 g/dL (6.3-8.2)
[2024-04-29 10:33] VITALS: PULSE 78; RESP 18
[2024-04-29 10:35] LABS: NT-Pro-B-Type Natriuretic Pept 149 pg/mL
[2024-04-29 10:39] LABS: Appearance,Urine Clear (Clear); Bacteria,Urine Rare /hpf; Bilirubin,Urine Negative (Negative); Blood,Urine Negative (Negative); Color,Urine Light Yellow; Glucose,Urine (UA) Negative (Negative); Ketones,Urine 1+ (Negative); Leukocyte Esterase,Urine Large (Negative); Mucus,Urine Rare /hpf; Nitrite,Urine Negative (Negative); PH, Urine 5.5 (5.0-8.0); Protein,Urine Negative (Negative); RBC,Urine 3 /hpf (0-5); Specific Gravity,Urine 1.017 (1.001-1.035); Squamous Epithelial Cell,Urine 1 /hpf (0-4); Urobilinogen,Urine <2.0 mg/dL (<2.0); WBC,Urine 6 /hpf (0-5)
[2024-04-29 10:48] LABS: Partial Thromboplastin Time 25.3 sec (22.0-30.0); Prothrombin Time 10.5 sec (10.0-12.5)
[2024-04-29 11:29] VITALS: BP 128/64; TEMP 99.3
== END 2024-04-29 11:40 | disposition home or self-care (01) ==
LOC: EC 09:16
DX: U07.1 COVID-19 (principal); Z88.2 Allergy status to sulfonamides
CPT/HCPCS: 36415; 71046; 80053; 81001; 83605; 83735; 83880; 85025; 85610; 85730; 87636; 93005; 99284

== ENCOUNTER → 2024-10-02 | Outpatient (CLI) | payer MEDICARE ==
--- NOTE | 2024-10-02 14:27 | FL ---
EXAMINATION TYPE: FL barium swallow w video DATE OF EXAM: 10/02/2024 MODIFIED SWALLOW / DEGLUTITION STUDY CLINICAL HISTORY: Dysphagia. Rule out aspiration. TECHNIQUE: Deglutition study is performed utilizing thin liquid barium, barium thick pudding, and ba rium coated cracker. 1 minute 3 seconds of fluoro time and 0 images obtained. Total dose area produ ct (DAP) in uGy*m?, mGy*cm? (or similar): n/p COMPARISON: None. FINDINGS: The oral and pharyngeal phases show satisfactory initiation and propagation with all modali ties tested. Normal mastication is seen with solid modalities tested. There is no evidence of penet ration or aspiration with any modality tested. No significant pharyngeal residue was appreciated. IMPRESSION: No aspiration observed. Please refer to speech therapist notes for further details if ne cessary. [facility], , 10/02/2024 2:25 PM
== END | disposition home or self-care (01) ==
LOC: RADFLMAIN 11:45
PROVIDERS: ATTEND Internal Medicine Geriatric Medicine
DX: R47.02 Dysphasia (principal)
CPT/HCPCS: 74230